=== PATIENT | female | born 1950 | race Caucasian/White ===

== ENCOUNTER → 2017-06-05 | Outpatient (CLI) | payer MEDICARE ==
--- NOTE | 2017-06-06 07:40 | BD ---
EXAMINATION TYPE: MG DEXA axial skeleton. DATE OF EXAM: 06/05/2017 COMPARISON: Prior DEXA bone scan July 13, 2009 CLINICAL HISTORY: Postmenopausal female with known osteoporosis per order Height: 5 FT 1IN Weight: 127 FRAX RISK QUESTIONS: Alcohol (3 or more units per day): NO Family History (Parent hip fracture): NO Glucocorticoids (More than 3mos): NO (Ex: prednisone, prednisolone, methylprednisolone, dexamethasone, and hydrocortisone). History of Fracture in Adulthood: YES Secondary Osteoporosis: 1. Type 1 Diabetes: NO 2. Hyperthyroidism: NO 3. Menopause before 45: NO 4. Malnutrition: NO 5. Chronic liver disease: NO Rheumatoid Arthritis: NO Current Tobacco Use: NO RISK FACTORS HISTORY OF: Family History of Osteoporosis: YES Active: YES Postmenopausal woman: AGE 49 MEDICATIONS: Additional Medications: EFFEXOR, CHOLESTEROL, Additional History: OPEN HEART OCTOBER 2016 EXAM MEASUREMENTS: Bone mineral densitometry was performed using the [employer] System. Bone mineral density as measured about the Lumbar spine is: ----- L1-L4(G/cm2): 1.006 T Score Values are as follows: ----- L2: -2.1 ----- L3: -1.0 ----- L4: -1.5 ----- L1-L4: -1.5 Bone mineral density has: INCREASED 2.4 % since study of: 2009 Bone mineral density about the R hip (g/cm2): 0.729 Bone mineral density about the L hip (g/cm2): 0.634 T Score values are as follows: -----R Neck: -2.2 -----L Neck: -2.9 -----R Total: -1.6 -----L Total: -2.0 Bone mineral density has: DECREASED -4.2 % since study of: 2009 IMPRESSION: Osteoporosis (T Score less than -2.5) as noted by T Score values at the left hip persist. Bone densit y in both hips is decreased or diminished from prior. There is increased fracture risk and therapy is usually indicated based on age. Re-Screen 1-2 years. NOTE: T-SCORE=SD OF THE YOUNG ADULT MEAN.
--- NOTE | 2017-06-06 13:45 | MM ---
Reason for exam: screening (asymptomatic). Last mammogram was performed 1 year ago. History: Patient is postmenopausal and has history of other cancer at age 62. Family history of breast cancer in 2 paternal aunts and breast cancer in sister at age 58. Reductions of both breasts, 1993. Took hormonal contraceptives for 6 months. Took estrogen for 1 year 6 months beginning at age 47. Physical Findings: A clinical breast exam by your physician is recommended on an annual basis and results should be correlated with mammographic findings. MG 3D Screening Mammo W/Cad Bilateral CC and MLO view(s) were taken. Prior study comparison: May 21, 2016, bilateral MG 3d screening mammo w/cad. January 12, 2015, right breast MG work up mamm w CAD RT. The breast tissue is heterogeneously dense. This may lower the sensitivity of mammography. No suspicious abnormality. Post reduction changes. No significant changes when compared with prior studies. ASSESSMENT: Benign, BI-RAD 2 RECOMMENDATION: Routine screening mammogram of both breasts in 1 year.
== END | disposition home or self-care (01) ==
LOC: RADMAMWWP 14:24
PROVIDERS: ATTEND Internal Medicine
DX: Z12.31 Encounter for screening mammogram for malignant neoplasm of breast (principal); M81.0 Age-related osteoporosis without current pathological fracture
CPT/HCPCS: 77080; 77063; G0202

== ENCOUNTER → 2018-07-06 | Outpatient (CLI) | payer MEDICARE ==
--- NOTE | 2018-07-07 14:31 | MM ---
Reason for exam: screening (asymptomatic). Last mammogram was performed 1 year and 1 month ago. History: Patient is postmenopausal and has history of other cancer at age 62. Family history of breast cancer in 2 paternal aunts and breast cancer in sister at age 58. Reductions of both breasts, 1993. Took hormonal contraceptives for 6 months. Took estrogen for 1 year 6 months beginning at age 47. Physical Findings: A clinical breast exam by your physician is recommended on an annual basis and results should be correlated with mammographic findings. MG 3D Screening Mammo W/Cad Bilateral CC and MLO view(s) were taken. Prior study comparison: June 05, 2017, bilateral MG 3d screening mammo w/cad. May 21, 2016, bilateral MG 3d screening mammo w/cad. The breast tissue is heterogeneously dense. This may lower the sensitivity of mammography. There are benign appearing round calcifications bilaterally. Dystrophic calcifications left breast. Asymmetric breast tissue left upper outer quadrant. There is no discrete abnormality. ASSESSMENT: Benign, BI-RAD 2 RECOMMENDATION: Routine screening mammogram of both breasts in 1 year.
== END | disposition home or self-care (01) ==
LOC: RADMAMWWP 07:01
PROVIDERS: ATTEND Internal Medicine
DX: Z12.31 Encounter for screening mammogram for malignant neoplasm of breast (principal)
CPT/HCPCS: 77063; 77067

== ENCOUNTER → 2019-07-13 | Outpatient (CLI) | payer MEDICARE ==
--- NOTE | 2019-07-13 17:21 | BD ---
EXAMINATION TYPE: 12 Bone Density DATE OF EXAM: 07/13/2019 COMPARISON: 06/05/17 CLINICAL HISTORY: 68-year-old female osteoporosis Height: 61 IN Weight: 125 LBS FRAX RISK QUESTIONS: History of Fracture in Adulthood: YES RT FOOT AGE 52 RISK FACTORS HISTORY OF: Family History of Osteoporosis: YES SISTER Active: YES Diet low in dairy products/other sources of calcium: YES Postmenopausal woman: AGE 46 MEDICATIONS: Osteoporosis Medications: YES Which medication: Prolia How Lon 1/2 YEARS Additional Medications: PROLIA, CALCIUM, VIT D, MULTI VIT, EFFEXOR, CHOLESTEROL; PILL Additional History: KIDNEY CANCER AGE 62 EXAM MEASUREMENTS: Bone mineral densitometry was performed using the [employer] System. Bone mineral density as measured about the Lumbar spine is: ----- L1-L4(G/cm2): 1.104 T Score Values are as follows: ----- L2: -0.7 ----- L3: 0.3 ----- L4: -1.1 ----- L1-L4: -0.6 Bone mineral density has: Increased 11.6% since study of: 06/05/2017 Bone mineral density about the R hip (g/cm2): 0.750 Bone mineral density about the L hip (g/cm2): 0.673 T Score values are as follows: -----R Neck: -2.1 -----L Neck: -2.6 -----R Total: -1.5 -----L Total: -1.7 Bone mineral density has: Increased 2.8% since study of: 06/05/2017 IMPRESSION: Osteoporosis (T Score less than -2.5). There is increased fracture risk and therapy is usually indicated based on age. Re-Screen 1-2 years. NOTE: T-SCORE=SD OF THE YOUNG ADULT MEAN.
--- NOTE | 2019-07-14 11:46 | MM ---
Reason for exam: screening (asymptomatic). Last mammogram was performed 1 year ago. History: Patient is postmenopausal and has history of other cancer at age 62. Family history of breast cancer in maternal aunt, breast cancer in paternal aunt, breast cancer in sister at age 58, and breast cancer in daughter. Reductions of both breasts, 1993. Took hormonal contraceptives for 6 months. Took estrogen for 1 year 6 months beginning at age 47. Physical Findings: A clinical breast exam by your physician is recommended on an annual basis and results should be correlated with mammographic findings. MG 3D Screening Mammo W/Cad Bilateral CC and MLO view(s) were taken. XCCL view(s) were taken of the left breast. Prior study comparison: July 06, 2018, bilateral MG 3d screening mammo w/cad. June 05, 2017, bilateral MG 3d screening mammo w/cad. There are scattered fibroglandular densities. Benign appearing bilateral calcifications. No suspicious abnormality. Left upper outer quadrant focal asymmetry is stable back to 2015. No significant changes when compared with prior studies. ASSESSMENT: Benign, BI-RAD 2 RECOMMENDATION: Routine screening mammogram of both breasts in 1 year.
== END | disposition home or self-care (01) ==
LOC: RADMAMWWP 08:26
PROVIDERS: ATTEND Internal Medicine
DX: Z12.31 Encounter for screening mammogram for malignant neoplasm of breast (principal); M81.0 Age-related osteoporosis without current pathological fracture
CPT/HCPCS: 77063; 77067; 77080

== ENCOUNTER → 2019-12-14 | Outpatient (CLI) | payer MEDICARE ==
[2019-12-14 10:20] LABS: Albumin 4.5 g/dL (3.5-5.0); Calcium 9.7 mg/dL (8.4-10.2); Potassium 4.6 mmol/L (3.5-5.1); Total Bilirubin 0.5 mg/dL (0.2-1.3); Total Protein 7.2 g/dL (6.3-8.2)
[2019-12-14 10:29] LABS: Basophils % (A) 1 %; Eosinophils # (A) 0.3 k/uL (0-0.7); Eosinophils % (A) 4 %; HCT 42.7 % (34.0-46.0); HGB 14.3 gm/dL (11.4-16.0); Lymphocytes # (A) 1.5 k/uL (1.0-4.8); Lymphocytes % (A) 25 %; MCH 33.6 pg (25.0-35.0); MCHC 33.6 g/dL (31.0-37.0); MCV 100.1 fL (80.0-100.0); Monocytes # (A) 0.5 k/uL (0-1.0); Monocytes % (A) 8 %; Neutrophils # (A) 3.9 k/uL (1.3-7.7); Neutrophils % (A) 61 %; Platelet Count 311 k/uL (150-450); RBC 4.26 m/uL (3.80-5.40); RDW 12.3 % (11.5-15.5); WBC 6.3 k/uL (3.8-10.6)
--- NOTE | 2019-12-14 11:34 | XR ---
EXAMINATION TYPE: XR abdomen 1V DATE OF EXAM: 12/14/2019 Comparison: None Clinical History: 69-year-old female R10.84 Generalized Abdominal Pain Findings: Cholecystectomy clips. Additional surgical clips along the right paramedian mid abdomen. Pelvic phleb oliths. Moderate stool burden. Nonobstructive bowel gas pattern. Supine imaging limited for assessmen t of free air. Impression: Moderate stool burden. Nonobstructive bowel gas pattern. Surgical clips on the right.
== END | disposition home or self-care (01) ==
LOC: RADXRMAIN 08:32
PROVIDERS: ATTEND Internal Medicine
DX: R19.5 Other fecal abnormalities (principal); Z90.49 Acquired absence of other specified parts of digestive tract; K21.0 Gastro-esophageal reflux disease with esophagitis; E78.2 Mixed hyperlipidemia
CPT/HCPCS: 36415; 74018; 80053; 80061; 84443; 85025

== ENCOUNTER → 2020-09-22 | Outpatient (CLI) | payer MEDICARE ==
--- NOTE | 2020-09-26 07:28 | MM ---
Reason for exam: screening (asymptomatic). Last mammogram was performed 1 year and 2 months ago. History: Patient is postmenopausal and has history of other cancer at age 62. Family history of breast cancer in maternal aunt, breast cancer in paternal aunt, breast cancer in sister at age 58, and breast cancer in daughter at age 42. Reductions of both breasts, 1993. Took hormonal contraceptives for 6 months. Took estrogen for 1 year 6 months beginning at age 47. Physical Findings: A clinical breast exam by your physician is recommended on an annual basis and results should be correlated with mammographic findings. MG 3D Screening Mammo W/Cad Bilateral CC and MLO view(s) were taken. XCCL view(s) were taken of the right breast. Prior study comparison: July 13, 2019, bilateral MG 3d screening mammo w/cad. July 06, 2018, bilateral MG 3d screening mammo w/cad. There are scattered fibroglandular densities. Global asymmetry left upper outer quadrant is unchanged. Stable course grouped calcifications posterior left breast. No significant changes when compared with prior studies. ASSESSMENT: Benign, BI-RAD 2 RECOMMENDATION: Routine screening mammogram of both breasts in 1 year.
== END | disposition home or self-care (01) ==
LOC: RADMAMWWP 15:41
PROVIDERS: ATTEND Internal Medicine
DX: Z12.31 Encounter for screening mammogram for malignant neoplasm of breast (principal); Z80.3 Family history of malignant neoplasm of breast; Z78.0 Asymptomatic menopausal state
CPT/HCPCS: 77063; 77067

== ENCOUNTER → 2021-10-15 | Outpatient (CLI) | payer MEDICARE ==
--- NOTE | 2021-10-16 11:47 | MM ---
Reason for exam: screening (asymptomatic). Last mammogram was performed 1 year and 1 month ago. History: Patient is postmenopausal and has history of other cancer at age 62. Family history of breast cancer in maternal aunt, breast cancer in paternal aunt, breast cancer in sister at age 58, and breast cancer in daughter at age 42. Reductions of both breasts, 1993. Took hormonal contraceptives for 6 months. Took estrogen for 1 year 6 months beginning at age 47. Physical Findings: A clinical breast exam by your physician is recommended on an annual basis and results should be correlated with mammographic findings. MG 3D Screening Mammo W/Cad Bilateral CC and MLO view(s) were taken. Prior study comparison: September 22, 2020, bilateral MG 3d screening mammo w/cad. July 13, 2019, bilateral MG 3d screening mammo w/cad. The breast tissue is heterogeneously dense. This may lower the sensitivity of mammography. Finding #1: There is a stable 15 mm mass in the upper outer quadrant of the left breast. Finding #2: There are typically benign calcifications in both breasts. There is a chronic nodularity in the left breast. Asymmetric breast tissue. ASSESSMENT: Benign, BI-RAD 2 RECOMMENDATION: Routine screening mammogram of both breasts in 1 year.
== END | disposition home or self-care (01) ==
LOC: RADMAMWWP 07:43
PROVIDERS: ATTEND Internal Medicine
DX: Z12.31 Encounter for screening mammogram for malignant neoplasm of breast (principal); Z78.0 Asymptomatic menopausal state; Z80.3 Family history of malignant neoplasm of breast
CPT/HCPCS: 77063; 77067

== ENCOUNTER → 2022-11-07 | Outpatient (CLI) | payer MEDICARE ==
--- NOTE | 2022-11-07 11:47 | BD ---
EXAMINATION TYPE: Axial Bone Density DATE OF EXAM: 11/07/2022 CLINICAL HISTORY: 72 years old Female. ICD-10 CODE: Z12.31 SCREENING MAMMO Height: 61 Weight: 130 FRAX RISK QUESTIONS: Family History (Parent hip fracture): no parent, but her sister History of Fracture in Adulthood: yes RISK FACTORS HISTORY OF: hx of lt foot fx as an adult Family History of Osteoporosis: yes, her sister Active: yes Diet low in dairy products/other sources of calcium: yes Postmenopausal woman: yes, at age 46 Hyperparathyroidism: no Adrenal Insufficiency: no MEDICATIONS: Osteoporosis Medications: yes, Prolia for about 5 yrs Additional Medications: calcium, vit d, effexor, statin for cholesterol, Additional History: kidney ca at age 62, EXAM MEASUREMENTS: Bone mineral densitometry was performed using the [employer] System. Bone mineral density as measured about the Lumbar spine is: ----- L1-L4(G/cm2): 1.128 T Score Values are as follows: ----- L1: -0.1 ----- L2: -0.4 ----- L3: 0.3 ----- L4: -0.1 ----- L1-L4: -0.4 Z Score Values are as follows: ----- L1: 0.9 ----- L2: 1.5 ----- L3: 2.2 ----- L4: 0.9 ----- L1-L4: 1.5 Bone mineral density has: Increased 2.2% since study of: 07.13.2019 Bone mineral density about the R hip (g/cm2): 0.819 Bone mineral density about the L hip (g/cm2): 0.815 T Score values are as follows: -----R Neck: -1.6 -----L Neck: -2.5 -----R Total: -1.5 -----L Total: -1.5 Z Score values are as follows: -----R Neck: 0.3 -----L Neck: -0.6 -----R Total: 0.2 -----L Total: 0.2 Bone mineral density has: Increased 1.9% since study of: 02.04.2020 FRAX%s: The graph provided illustrates a 24.3% chance for a major osteoporotic fx and a 6.8% chance f or the hips probability for fx in 10 years time. IMPRESSION: Osteopenia (T Score between -2.5 and -1). There is slightly increased risk of fracture and the patient may be considered for treatment. Re-Screen 2-5 years. NOTE: T-SCORE=SD OF THE YOUNG ADULT MEAN.
== END | disposition home or self-care (01) ==
LOC: RADBDWWP 07:53
PROVIDERS: ATTEND Internal Medicine
DX: M81.0 Age-related osteoporosis without current pathological fracture (principal); M85.89 Other specified disorders of bone density and structure, multiple sites; Z78.0 Asymptomatic menopausal state
CPT/HCPCS: 77080

== ENCOUNTER → 2022-11-15 | Outpatient (CLI) | payer MEDICARE ==
--- NOTE | 2022-11-18 08:29 | MM ---
Reason for Exam: Screening (asymptomatic). Last mammogram was performed 1 year(s) and 1 month(s) ago. Patient History: Menarche at age 13. First Full-Term at age 19. Left ovary removed at age 47. Right ovary removed at age 47. Postmenopausal. Other cancer, age 62. Estrogen for 1 year, 6 months, from age 47 until age 49. Hormonal Contraceptives for 6 months. 1993, Bilateral Reduction. Paternal aunt had breast cancer. Maternal aunt had breast cancer. Sister had breast cancer, age 58. Daughter had breast cancer, age 42. Mother had ovarian cancer. Risk Values: Shell 5 year model risk: 8.3%. NCI Lifetime model risk: 20.2%. Prior Study Comparison: 07/13/2019 Bilateral Screening Mammogram, [facility]. 09/22/2020 Bilateral Screening Mammogram, [facility]. 10/15/2021 Bilateral Screening Mammogram, [facility]. Tissue Density: The breast tissue is heterogeneously dense. This may lower the sensitivity of mammography. Findings: Analyzed By CAD. There is no suspicious group of microcalcifications or new suspicious mass in either breast. Overall Assessment: Benign, BI-RAD 2 Management: Screening Mammogram of both breasts in 1 year. . Patient should continue monthly self-breast exams. A clinical breast exam by your physician is recommended on an annual basis. This exam should not preclude additional follow-up of suspicious palpable abnormalities. Note on Shell scores and lifetime risk: 1. A Shell score greater than 3% is considered moderate risk. If this is the case, consider specialist referral to assess eligibility for a risk reducing agent. 2. If overall lifetime risk for the development of breast cancer is 20% or higher, the patient may qualify for future screening with alternating mammogram and breast MRI. Electronically signed and approved by: Abhinav Samayoa M.D. Radiologis
== END | disposition home or self-care (01) ==
LOC: RADMAMWWP 07:14
PROVIDERS: ATTEND Internal Medicine
DX: Z12.31 Encounter for screening mammogram for malignant neoplasm of breast (principal); Z78.0 Asymptomatic menopausal state; Z80.3 Family history of malignant neoplasm of breast; Z80.41 Family history of malignant neoplasm of ovary
CPT/HCPCS: 77063; 77067

== ENCOUNTER 2023-01-22 13:46 | Emergency (ER) | payer MEDICARE ==
[2023-01-22 14:04] VITALS: TEMP 99
[2023-01-22] MEDS ORDERED: SODIUM CHLORIDE 0.9% 1,000 ML IV STA (14:10)
--- NOTE | 2023-01-22 14:15 | ED ---
Syncope HPI - General Chief Complaint: Syncope Stated Complaint: Syncope Time Seen by Provider: 01/22/23 14:07 Source: patient, RN notes reviewed, old records reviewed Mode of arrival: wheelchair Limitations: no limitations - History of Present Illness Initial Comments: This is a 72-year-old female to the emergency department for evaluation today. Has passed out last 2 days with fever of 102. Patient feels lightheaded dizzy and weak at times. The persistent shortness of breath. Occasional headaches and this feels like she currently has a fever and chills. Patient is also complaining of weakness. MD Complaint: loss of consciousness, felt faint, collapsed -: days(s) Prodromal Symptoms: lightheaded, palpitations -: second(s) Witnessed: no Injuries Sustained Associated with Event: None Current Symptoms: lightheaded, weakness History: previous syncopal episode, other (Recent fever) Context: at rest - Related Data Home Medications Medication Instructions Recorded Confirmed Albuterol Inhaler [Ventolin Hfa 1 - 2 puff INHALATION RT-Q6H PRN 01/22/23 01/22/23 Inhaler] Ascorbic Acid [Vitamin C] 1,000 mg PO DAILY 01/22/23 01/22/23 Atorvastatin [Lipitor] 40 mg PO HS 01/22/23 01/22/23 Cholecalciferol [Vitamin D3 (25 50 mcg PO DAILY 01/22/23 01/22/23 Mcg = 1000 Iu)] Famotidine 40 mg PO HS 01/22/23 01/22/23 Gabapentin [Neurontin] 300 mg PO TID PRN 01/22/23 01/22/23 Multivitamins, Thera [Multivitamin 1 tab PO DAILY 01/22/23 01/22/23 (formulary)] Omeprazole 40 mg PO AC-BRKFST 01/22/23 01/22/23 Vitamin E (Dl,Tocopheryl Acet) 400 unit PO DAILY 01/22/23 01/22/23 [Vitamin E (400 Iu = 180 mg)] Allergies Allergy/AdvReac Type Severity Reaction Status Date / Time ceftriaxone [From Rocephin] Allergy Rash/Hives Verified 01/22/23 16:53 Penicillins Allergy Rash/Hives Verified 01/22/23 16:53 Review of Systems ROS Statement: Those systems with pertinent positive or pertinent negative responses have been documented in the HPI. ROS Other: All systems not noted in ROS Statement are negative. Past Medical History Past Medical History: Cancer Additional Past Medical History / Comment(s): kidney cancer History of Any Multi-Drug Resistant Organisms: None Reported Additional Past Surgical History / Comment(s): rt kidney removal Past Psychological History: Anxiety, Depression Smoking Status: Never smoker Past Alcohol Use History: None Reported Past Drug Use History: None Reported General Exam Limitations: no limitations General appearance: alert, in no apparent distress Head exam: Present: atraumatic, normocephalic, normal inspection Eye exam: Present: normal appearance, PERRL, EOMI. Absent: scleral icterus, conjunctival injection, periorbital swelling ENT exam: Present: normal exam, mucous membranes moist Neck exam: Present: normal inspection. Absent: tenderness, meningismus, lymphadenopathy Respiratory exam: Present: normal lung sounds bilaterally. Absent: respiratory distress, wheezes, rales, rhonchi, stridor Cardiovascular Exam: Present: regular rate, normal rhythm, normal heart sounds. Absent: systolic murmur, diastolic murmur, rubs, gallop, clicks GI/Abdominal exam: Present: soft, normal bowel sounds. Absent: distended, tenderness, guarding, rebound, rigid Extremities exam: Present: normal inspection, full ROM, normal capillary refill. Absent: tenderness, pedal edema, joint swelling, calf tenderness Back exam: Present: normal inspection Neurological exam: Present: alert, oriented X3, CN II-XII intact Psychiatric exam: Present: normal affect, normal mood Skin exam: Present: warm, dry, intact, normal color. Absent: rash Course Vital Signs 01/22/23 01/22/23 13:58 16:18 Temperature 99.0 F Pulse Rate 80 90 Respiratory 20 18 Rate Blood Pressure 127/80 161/90 O2 Sat by Pulse 99 95 Oximetry - Reevaluation(s) Reevaluation #1: 01/22/23 15:40 Medical record is reviewed Reevaluation #2: 01/22/23 15:40 No recurrent syncope here in the ER Reevaluation #3: Patient informed of results, currently feels well and can be discharged home Reevaluation #4: 01/22/23 14:12 Was pt. sent in by a medical professional or institution (, PA, CROWN ATTACHER, urgent care, hospital, or group home...) When possible be specific @ -no Did you speak to anyone other than the patient for history (EMS, parent, family, police, friend...)? What history was obtained from this source @ -no Did you review nursing and triage notes (agree or disagree)? Why? @ -agree Are old charts reviewed (outside hosp., previous admission, EMS record, old EKG, old radiological studies, urgent care reports/EKG's, group home records)? Report findings @ -yes Differential Diagnosis (chest pain, altered mental status, abdominal pain women, abdominal pain men, vaginal bleeding, weakness, fever, dyspnea, syncope, headache, dizziness, GI bleed, back pain, seizure, CVA, palpatations, mental health, musculoskeletal)? @ -prior EKG interpreted by me (3pts min.). @ -yes X-rays interpreted by me (1pt min.). @ -yes CT interpreted by me (1pt min.). @ -yes U/S interpreted by me (1pt. min.). @ -no What testing was considered but not performed or refused? (CT, X-rays, U/S, labs)? Why? @ -none What meds were considered but not given or refused? Why? @ -none Did you discuss the management of the patient with other professionals (professionals i.e. , PA, CROWN ATTACHER, lab, RT, psych nurse, social media designer, private detective, teacher, sheriff's officer, pillowcase cleaner)? Give summary @ -no Was smoking cessation discussed for >3mins.? @ -no Was critical care preformed (if so, how long)? @ -no Were there social determinants of health that impacted care today? How? (Homelessness, low income, unemployed, alcoholism, drug addiction, transportation, low edu. Level, literacy, decrease access to med. care, fci, rehab)? @ -none Was there de-escalation of care discussed even if they declined (Discuss DNR or withdrawal of care, Hospice)? DNR status @ -no What co-morbidities impacted this encounter? (DM, HTN, Smoking, COPD, CAD, Cancer, CVA, ARF, Chemo, Hep., AIDS, mental health diagnosis, sleep apnea, morbid obesity)? @ -none Was patient admitted / discharged? Hospital course, mention meds given and route, prescriptions, significant lab abnormalities, going to OR and other pertinent info. @ - 72 female presenting with a syncopal event as well as persistent fever for the last few days has not felt well with nausea vomiting diarrhea and weakness. Patient has no recurrent syncopal episodes here in the ER fevers controlled and also feels well no cause of fevers found, spoke patient's primary care feels comfortable with discharge and patient will follow-up in the office Discharge Undiagnosed new problem with uncertain prognosis? @ -no Drug Therapy requiring intensive monitoring for toxicity (Heparin, Nitro, Insulin, Cardizem)? @ -no Were any procedures done? @ -no Diagnosis/symptom? @ -Syncope, fever, nausea vomiting diarrhea Acute, or Chronic, or Acute on Chronic? @ -Acute Uncomplicated (without systemic symptoms) or Complicated (systemic symptoms)? @ -Complicated Side effects of treatment? @ -no Exacerbation, Progression, or Severe Exacerbation? @ -exacerbation Poses a threat to life or bodily function? How? (Chest pain, [place], [place], pneumonia, PE, COPD, DKA, ARF, appy, cholecystitis, CVA, Diverticulitis, Homicidal, Suicidal, threat to staff... and all critical care pts) @ -yes cause of syncope can be due to mortality causing disease Reevaluation #5: 01/22/23 14:12 Differential Syncope: Valvular disease, hypertrophic cardiomyopathy, pulmonary embolism, tamponade, tachycardia, bradycardia, [place], hypovolemia, hemorrhage, dissection, anemia, intracranial hemorrhage, seizure, hypoglycemia, carbon monoxide poisoning, this is not meant to be an all-inclusive list. - Consultations Consultation #1: Spoke with patient's primary care Dr. Jacobsen who agrees to see patient in the office feels good for patient discharge EKG Findings - EKG Comments: EKG Findings:: EKG is sinus 83 IA 151 QRS 86 QTc 417, occasional PVC - EKG Results: EKG: interpreted by [facility] Medical Decision Making - Medical Decision Making 72 female presenting with a syncopal event as well as persistent fever for the last few days has not felt well with nausea vomiting diarrhea and weakness. Patient has no recurrent syncopal episodes here in the ER fevers controlled and also feels well no cause of fevers found, spoke patient's primary care feels comfortable with discharge and patient will follow-up in the office - Lab Data Result diagrams: 01/22/23 14:34 01/22/23 14:34 Lab Results 01/22/23 01/22/23 01/22/23 Range/Units 14:34 14:34 14:34 WBC 10.2 (3.8-10.6) k/uL RBC 4.03 (3.80-5.40) m/uL Hgb 13.0 (11.4-16.0) gm/dL Hct 38.3 (34.0-46.0) % MCV 95.1 (80.0-100.0) fL MCH 32.3 (25.0-35.0) pg MCHC 34.0 (31.0-37.0) g/dL RDW 12.8 (11.5-15.5) % Plt Count 215 (150-450) k/uL MPV 7.1 Neutrophils % 85 % Lymphocytes % 7 % Monocytes % 8 % Eosinophils % 0 % Basophils % 0 % Neutrophils # 8.6 H (1.3-7.7) k/uL Lymphocytes # 0.7 L (1.0-4.8) k/uL Monocytes # 0.8 (0-1.0) k/uL Eosinophils # 0.0 (0-0.7) k/uL Basophils # 0.0 (0-0.2) k/uL PT 9.8 (9.0-12.0) sec INR 0.9 (<1.2) APTT 23.3 (22.0-30.0) sec D-Dimer 1.17 H (<0.60) mg/L FEU Sodium 134 L (137-145) mmol/L Potassium 3.9 (3.5-5.1) mmol/L Chloride 101 (98-107) mmol/L Carbon Dioxide 27 (22-30) mmol/L Anion Gap 6 mmol/L BUN 14 (7-17) mg/dL Creatinine 0.99 (0.52-1.04) mg/dL Est GFR (CKD-EPI)AfAm 66 (>60 ml/min/1.73 sqM) Est GFR (CKD-EPI)NonAf 57 (>60 ml/min/1.73 sqM) Glucose 144 H (74-99) mg/dL Calcium 9.7 (8.4-10.2) mg/dL Magnesium 2.0 (1.6-2.3) mg/dL Total Bilirubin 0.9 (0.2-1.3) mg/dL AST 30 (14-36) U/L ALT 19 (4-34) U/L Alkaline Phosphatase 60 (38-126) U/L Troponin I (0.000-0.034) ng/mL Total Protein 6.9 (6.3-8.2) g/dL Albumin 4.2 (3.5-5.0) g/dL Urine Color Urine Appearance (Clear) Urine pH (5.0-8.0) Ur Specific [place] (1.001-1.035) Urine Protein (Negative) Urine Glucose (UA) (Negative) Urine Ketones (Negative) Urine Blood (Negative) Urine Nitrite (Negative) Urine Bilirubin (Negative) Urine Urobilinogen (<2.0) mg/dL Ur Leukocyte Esterase (Negative) Urine RBC (0-5) /hpf Urine WBC (0-5) /hpf Urine Bacteria (None) /hpf Influenza Type A (PCR) (Not Detectd) Influenza Type B (PCR) (Not Detectd) RSV (PCR) (Not Detectd) SARS-CoV-2 (PCR) (Not Detectd) 01/22/23 01/22/23 01/22/23 Range/Units 14:34 14:48 15:12 WBC (3.8-10.6) k/uL RBC (3.80-5.40) m/uL Hgb (11.4-16.0) gm/dL Hct (34.0-46.0) % MCV (80.0-100.0) fL MCH (25.0-35.0) pg MCHC (31.0-37.0) g/dL RDW (11.5-15.5) % Plt Count (150-450) k/uL MPV Neutrophils % % Lymphocytes % % Monocytes % % Eosinophils % % Basophils % % Neutrophils # (1.3-7.7) k/uL Lymphocytes # (1.0-4.8) k/uL Monocytes # (0-1.0) k/uL Eosinophils # (0-0.7) k/uL Basophils # (0-0.2) k/uL PT (9.0-12.0) sec INR (<1.2) APTT (22.0-30.0) sec D-Dimer (<0.60) mg/L FEU Sodium (137-145) mmol/L Potassium (3.5-5.1) mmol/L Chloride (98-107) mmol/L Carbon Dioxide (22-30) mmol/L Anion Gap mmol/L BUN (7-17) mg/dL Creatinine (0.52-1.04) mg/dL Est GFR (CKD-EPI)AfAm (>60 ml/min/1.73 sqM) Est GFR (CKD-EPI)NonAf (>60 ml/min/1.73 sqM) Glucose (74-99) mg/dL Calcium (8.4-10.2) mg/dL Magnesium (1.6-2.3) mg/dL Total Bilirubin (0.2-1.3) mg/dL AST (14-36) U/L ALT (4-34) U/L Alkaline Phosphatase (38-126) U/L Troponin I 0.016 (0.000-0.034) ng/mL Total Protein (6.3-8.2) g/dL Albumin (3.5-5.0) g/dL Urine Color Light Yellow Urine Appearance Clear (Clear) Urine pH 6.0 (5.0-8.0) Ur Specific [place] 1.003 (1.001-1.035) Urine Protein Negative (Negative) Urine Glucose (UA) Negative (Negative) Urine Ketones Trace H (Negative) Urine Blood Negative (Negative) Urine Nitrite Negative (Negative) Urine Bilirubin Negative (Negative) Urine Urobilinogen <2.0 (<2.0) mg/dL Ur Leukocyte Esterase Moderate H (Negative) Urine RBC 2 (0-5) /hpf Urine WBC 8 H (0-5) /hpf Urine Bacteria Rare H (None) /hpf Influenza Type A (PCR) Not Detected (Not Detectd) Influenza Type B (PCR) Not Detected (Not Detectd) RSV (PCR) Not Detected (Not Detectd) SARS-CoV-2 (PCR) Not Detected (Not Detectd) - EKG Data -: EKG Interpreted by Me - Radiology Data Radiology results: report reviewed (Chest x-ray and CT chest are negative for acute disease), image reviewed Disposition Clinical Impression: Syncope, Dehydration, Fever, Nausea & vomiting Disposition: HOME SELF-CARE Condition: Fair Instructions (If sedation given, give patient instructions): Syncope (ED) Is patient prescribed a controlled substance at d/c from ED?: No Referrals: Cayden Jacobsen MD [Primary Care Provider] - 1-2 days Time of Disposition: 17:00
[2023-01-22] MEDS ORDERED: IBUPROFEN 600 MG TAB PO STA (14:46)
[2023-01-22] MEDS ORDERED: ACETAMINOPHEN TAB 500 MG TAB PO STA (14:46)
[2023-01-22 15:04] LABS: Basophils % (A) 0 %; Eosinophils % (A) 0 %; HCT 38.3 % (34.0-46.0); Lymphocytes # (A) 0.7 k/uL (1.0-4.8); Lymphocytes % (A) 7 %; MCH 32.3 pg (25.0-35.0); MCV 95.1 fL (80.0-100.0); Mean Platelet Volume 7.1; Monocytes # (A) 0.8 k/uL (0-1.0); Monocytes % (A) 8 %; Neutrophils # (A) 8.6 k/uL (1.3-7.7); Neutrophils % (A) 85 %; Platelet Count 215 k/uL (150-450); RBC 4.03 m/uL (3.80-5.40); RDW 12.8 % (11.5-15.5); WBC 10.2 k/uL (3.8-10.6)
--- NOTE | 2023-01-22 15:06 | XR ---
EXAMINATION TYPE: XR chest 1V portable DATE OF EXAM: 01/22/2023 HISTORY: Shortness of breath. COMPARISON: 11-19 TECHNIQUE: Single view of the chest is submitted. FINDINGS: Demonstrated are scattered senescent parenchymal change. There is no evidence for focal infiltrate. The heart is stable. Hilar and mediastinal structures are within normal limits. Degenerative changes are seen of the dorsal spine. IMPRESSION: 1. Chronic changes without evidence for acute pulmonary disease.
[2023-01-22 15:16] LABS: INR 0.9 (<1.2); Partial Thromboplastin Time 23.3 sec (22.0-30.0); Prothrombin Time 9.8 sec (9.0-12.0)
[2023-01-22 15:21] LABS: ALT 19 U/L (4-34); AST 30 U/L (14-36); African American GFR (CKD) 66 (>60 ml/min/1.73 sqM); Albumin 4.2 g/dL (3.5-5.0); Alkaline Phosphatase 60 U/L (38-126); Anion Gap 6 mmol/L; Blood Urea Nitrogen 14 mg/dL (7-17); Calcium 9.7 mg/dL (8.4-10.2); Carbon Dioxide 27 mmol/L (22-30); Chloride 101 mmol/L (98-107); Glucose 144 mg/dL (74-99); Non-African American GFR(CKD) 57 (>60 ml/min/1.73 sqM); Potassium 3.9 mmol/L (3.5-5.1); Sodium 134 mmol/L (137-145); Total Bilirubin 0.9 mg/dL (0.2-1.3); Total Protein 6.9 g/dL (6.3-8.2)
[2023-01-22 15:52] LABS: Appearance,Urine Clear (Clear); Bacteria,Urine Rare /hpf; Bilirubin,Urine Negative (Negative); Blood,Urine Negative (Negative); Color,Urine Light Yellow; Glucose,Urine (UA) Negative (Negative); Ketones,Urine Trace (Negative); Leukocyte Esterase,Urine Moderate (Negative); Nitrite,Urine Negative (Negative); Protein,Urine Negative (Negative); RBC,Urine 2 /hpf (0-5); Specific Gravity,Urine 1.003 (1.001-1.035); Urobilinogen,Urine <2.0 mg/dL (<2.0); WBC,Urine 8 /hpf (0-5)
--- NOTE | 2023-01-22 16:18 | CT ---
EXAMINATION TYPE: CT angio chest DATE OF EXAM: 01/22/2023 COMPARISON: 12/14/2013 HISTORY: Syncope CT DLP: 229.7 mGycm CONTRAST: CT chest with contrast and 3D reconstruction with MIP imaging is performed with IV Contrast, patient injected with 80 mL of Isovue 370. Contrast-enhanced CT of the chest was performed through the course of the pulmonary arteries with nain g and mediastinal window settings submitted. 3D reconstruction with MIP imaging was also performed. PULMONARY ARTERIES: The pulmonary arteries and their major tributaries are patent. I do not see everett dence for sizable filling defect to suggest pulmonary embolic process. LUNGS: The lungs are clear and free of infiltrate. No evidence for atelectasis. No pulmonary nodule or mass is detected. No pleural effusion. MEDIASTINUM: Thoracic aorta is of normal caliber.. Small sliding-type hiatal hernia. The heart is no t enlarged. No evidence for mediastinal mass. No mediastinal lymph nodes greater than 1cm. HILAR STRUCTURES: No evidence for mass. No hilar lymph nodes greater than 1 cm. UPPER ABDOMEN: No significant abnormality is seen. IMPRESSION: 1. No evidence for Pulmonary embolism at this time.
[2023-01-22 16:19] VITALS: BP 161/90; PULSE 90; RESP 18
== END 2023-01-22 17:05 | disposition home or self-care (01) ==
LOC: EC 13:46
DX: R55 Syncope and collapse (principal); E86.0 Dehydration; R50.9 Fever, unspecified; R11.2 Nausea with vomiting, unspecified; F41.9 Anxiety disorder, unspecified; F32.A Depression, unspecified; Z88.0 Allergy status to penicillin; Z88.1 Allergy status to other antibiotic agents; Z79.899 Other long term (current) drug therapy; Z20.822 Contact with and (suspected) exposure to COVID-19
CPT/HCPCS: 36415; 93005; 85379; 80053; 83735; 84484; 85025; 85610; 85730; 81001; 87636; 71045; 71275; 99285; 96360; Q9967

== ENCOUNTER 2023-03-18 17:58 | Inpatient (IN) | payer MEDICARE ==
--- NOTE | 2023-03-18 18:41 | ED ---
General Adult HPI - General Chief complaint: Fall Stated complaint: fall Time Seen by Provider: 03/18/23 18:09 Source: patient, EMS, RN notes reviewed Mode of arrival: EMS Limitations: no limitations - History of Present Illness Initial comments: Patient is a pleasant 72-year-old female presenting to the emergency department with concerns with fall. Incident occurred prior to arrival. Patient was walking in her bathroom. Patient states she was carrying too many) warned her not to. Patient believes this made her fall. Patient did fall back towards the shower. Patient believes she did lightly bump her head. No loss of consciousness. Patient denies syncope. No chest pain or back pain. No abdominal pain. No dyspnea. No significant headache. Patient is symptom-free at this time. - Related Data Home Medications Medication Instructions Recorded Confirmed Albuterol Inhaler [Ventolin Hfa 1 - 2 puff INHALATION RT-Q6H PRN 01/22/23 01/22/23 Inhaler] Ascorbic Acid [Vitamin C] 1,000 mg PO DAILY 01/22/23 01/22/23 Atorvastatin [Lipitor] 40 mg PO HS 01/22/23 01/22/23 Cholecalciferol [Vitamin D3 (25 50 mcg PO DAILY 01/22/23 01/22/23 Mcg = 1000 Iu)] Famotidine 40 mg PO HS 01/22/23 01/22/23 Gabapentin [Neurontin] 300 mg PO TID PRN 01/22/23 01/22/23 Multivitamins, Thera [Multivitamin 1 tab PO DAILY 01/22/23 01/22/23 (formulary)] Omeprazole 40 mg PO AC-BRKFST 01/22/23 01/22/23 Vitamin E (Dl,Tocopheryl Acet) 400 unit PO DAILY 01/22/23 01/22/23 [Vitamin E (400 Iu = 180 mg)] Allergies Allergy/AdvReac Type Severity Reaction Status Date / Time ceftriaxone [From Rocephin] Allergy Rash/Hives Verified 03/18/23 18:12 Penicillins Allergy Rash/Hives Verified 03/18/23 18:12 Review of Systems ROS Statement: Those systems with pertinent positive or pertinent negative responses have been documented in the HPI. ROS Other: All systems not noted in ROS Statement are negative. Constitutional: Denies: fever Eyes: Denies: eye pain ENT: Denies: ear pain Respiratory: Denies: cough, dyspnea Cardiovascular: Denies: chest pain Endocrine: Denies: fatigue Gastrointestinal: Denies: abdominal pain Musculoskeletal: Denies: back pain Neurological: Denies: headache, weakness, confusion Past Medical History Past Medical History: Cancer Additional Past Medical History / Comment(s): kidney cancer History of Any Multi-Drug Resistant Organisms: None Reported Additional Past Surgical History / Comment(s): rt kidney removal Past Psychological History: Anxiety, Depression Smoking Status: Never smoker Past Alcohol Use History: None Reported Past Drug Use History: None Reported General Exam Limitations: no limitations General appearance: alert, in no apparent distress Head exam: Present: atraumatic, normocephalic Eye exam: Present: normal appearance, PERRL, EOMI ENT exam: Present: normal oropharynx Neck exam: Present: normal inspection, tenderness (Mild diffuse tenderness) Respiratory exam: Present: normal lung sounds bilaterally Cardiovascular Exam: Present: regular rate, normal rhythm GI/Abdominal exam: Present: soft. Absent: tenderness Extremities exam: Present: normal inspection, full ROM. Absent: tenderness Neurological exam: Present: alert, oriented X3, CN II-XII intact. Absent: motor sensory deficit Expanded Neurological exam: Present: protecting the airway Patient oriented to: Present: person, place, time Speech: Present: fluid speech Motor strength exam: RUE: 5, LUE: 5, RLE: 5, LLE: 5 Eye Response: (4) open spontaneously Motor Response: (6) obeys commands Verbal Response: (5) oriented Psychiatric exam: Present: normal affect, normal mood Skin exam: Present: normal color Course Vital Signs 03/18/23 03/18/23 03/18/23 18:02 18:31 19:31 Temperature 98.2 F Pulse Rate 104 H 97 Pulse Rate [ 105 H Supervisor Color Paste Mixing ] Respiratory 18 18 18 Rate Blood Pressure 110/60 115/69 O2 Sat by Pulse 99 96 Oximetry 03/18/23 03/18/23 20:40 21:12 Temperature Pulse Rate 93 Pulse Rate [ Supervisor Color Paste Mixing ] Respiratory 18 18 Rate Blood Pressure 118/69 O2 Sat by Pulse 94 L Oximetry EKG Findings - EKG Results: EKG: interpreted by ERMD (Nonspecific ST-T), sinus rhythm, normal axis, normal QRS Medical Decision Making - Medical Decision Making Was pt. sent in by a medical professional or institution (ADRIENNE Finch, PEDIATRIC GENETICIST, urgent care, hospital, or intermediate...) When possible be specific @ -No Did you speak to anyone other than the patient for history (EMS, parent, family, police, friend...)? What history was obtained from this source @ -No Did you review nursing and triage notes (agree or disagree)? Why? @ -I reviewed and agree with nursing and triage notes Were old charts reviewed (outside hosp., previous admission, EMS record, old EKG, old radiological studies, urgent care reports/EKG's, intermediate records)? Report findings @ -No old charts were reviewed Differential Diagnosis (chest pain, altered mental status, abdominal pain women, abdominal pain men, vaginal bleeding, weakness, fever, dyspnea, syncope, headache, dizziness, GI bleed, back pain, seizure, CVA, palpatations, mental health, musculoskeletal)? @ -Differential Weakness: Hypoglycemia, shock, sepsis, hyponatremia, anemia, infection, [place], ETOH, adverse medicine reaction, overdose, stroke, this is not meant to be an all-inclusive list. EKG interpreted by me (3pts min.). @ -As above X-rays interpreted by me (1pt min.). @ -Chest x-ray shows no acute process CT interpreted by me (1pt min.). @ -Reports reviewed U/S interpreted by me (1pt. min.). @ -None done What testing was considered but not performed or refused? (CT, X-rays, U/S, labs)? Why? @ -None What meds were considered but not given or refused? Why? @ -None Did you discuss the management of the patient with other professionals (professionals i.e. ADRIENNE Finch, PEDIATRIC GENETICIST, lab, RT, psych nurse, social group worker, regional education manager, teacher, security officers and guards, onsite case manager)? Give summary @ -Case was discussed with Dr. Jacobsen who will admit his patient. Was smoking cessation discussed for >3mins.? @ -No Was critical care preformed (if so, how long)? @ -No Were there social determinants of health that impacted care today? How? (Homelessness, low income, unemployed, alcoholism, drug addiction, t ransportation, low edu. Level, literacy, decrease access to med. care, usp, rehab)? @ -No Was there de-escalation of care discussed even if they declined (Discuss DNR or withdrawal of care, Hospice)? DNR status @ -No What co-morbidities impacted this encounter? (DM, HTN, Smoking, COPD, CAD, Cancer, CVA, ARF, Chemo, Hep., AIDS, mental health diagnosis, sleep apnea, morbid obesity)? @ -None Was patient admitted / discharged? Hospital course, mention meds given and route, prescriptions, significant lab abnormalities, going to OR and other pertinent info. @ -Patient reevaluated. Patient and family updated. Family has concerns for patient being at home. They states she is unsteady and confused at times. Patient is agreement with this. Patient still denies any chest discomfort or dyspnea. Patient does have elevated troponin and will need further evaluation regarding this. Undiagnosed new problem with uncertain prognosis? @ -No Drug Therapy requiring intensive monitoring for toxicity (Heparin, Nitro, Insulin, Cardizem)? @ -Patient will be placed on heparin drip and will need monitoring for this Were any procedures done? @ -No Diagnosis/symptom? @ -Weakness Acute, or Chronic, or Acute on Chronic? @ -Acute Uncomplicated (without systemic symptoms) or Complicated (systemic symptoms)? @ -default Side effects of treatment? @ -No Exacerbation, Progression, or Severe Exacerbation? @ -No Poses a threat to life or bodily function? How? (Chest pain, [place], [place], pneumonia, PE, COPD, DKA, ARF, appy, cholecystitis, CVA, Diverticulitis, Homicidal, Suicidal, threat to staff... and all critical care pts) @ -No - Lab Data Result diagrams: 03/18/23 18:40 03/18/23 18:40 Lab Results 03/18/23 03/18/23 03/18/23 Range/Units 18:40 18:40 18:40 WBC 15.0 H (3.8-10.6) k/uL RBC 3.23 L (3.80-5.40) m/uL Hgb 9.6 L D (11.4-16.0) gm/dL Hct 29.7 L (34.0-46.0) % MCV 92.0 (80.0-100.0) fL MCH 29.9 (25.0-35.0) pg MCHC 32.5 (31.0-37.0) g/dL RDW 13.7 (11.5-15.5) % Plt Count 297 (150-450) k/uL MPV 7.3 Neutrophils % 90 % Lymphocytes % 4 % Monocytes % 4 % Eosinophils % 0 % Basophils % 0 % Neutrophils # 13.5 H (1.3-7.7) k/uL Lymphocytes # 0.5 L (1.0-4.8) k/uL Monocytes # 0.6 (0-1.0) k/uL Eosinophils # 0.0 (0-0.7) k/uL Basophils # 0.0 (0-0.2) k/uL Hypochromasia Slight PT 10.5 (9.0-12.0) sec INR 1.0 (<1.2) APTT 20.3 L (22.0-30.0) sec Sodium 133 L (137-145) mmol/L Potassium 4.2 (3.5-5.1) mmol/L Chloride 103 (98-107) mmol/L Carbon Dioxide 24 (22-30) mmol/L Anion Gap 6 mmol/L BUN 16 (7-17) mg/dL Creatinine 0.72 (0.52-1.04) mg/dL Est GFR (CKD-EPI)AfAm >90 (>60 ml/min/1.73 sqM) Est GFR (CKD-EPI)NonAf 85 (>60 ml/min/1.73 sqM) Glucose 178 H (74-99) mg/dL Calcium 8.7 (8.4-10.2) mg/dL Magnesium 1.9 (1.6-2.3) mg/dL Total Bilirubin 0.7 (0.2-1.3) mg/dL AST 64 H (14-36) U/L ALT 55 H (4-34) U/L Alkaline Phosphatase 94 (38-126) U/L Troponin I (0.000-0.034) ng/mL Total Protein 6.3 (6.3-8.2) g/dL Albumin 2.6 L (3.5-5.0) g/dL 03/18/23 Range/Units 18:40 WBC (3.8-10.6) k/uL RBC (3.80-5.40) m/uL Hgb (11.4-16.0) gm/dL Hct (34.0-46.0) % MCV (80.0-100.0) fL MCH (25.0-35.0) pg MCHC (31.0-37.0) g/dL RDW (11.5-15.5) % Plt Count (150-450) k/uL MPV Neutrophils % % Lymphocytes % % Monocytes % % Eosinophils % % Basophils % % Neutrophils # (1.3-7.7) k/uL Lymphocytes # (1.0-4.8) k/uL Monocytes # (0-1.0) k/uL Eosinophils # (0-0.7) k/uL Basophils # (0-0.2) k/uL Hypochromasia PT (9.0-12.0) sec INR (<1.2) APTT (22.0-30.0) sec Sodium (137-145) mmol/L Potassium (3.5-5.1) mmol/L Chloride (98-107) mmol/L Carbon Dioxide (22-30) mmol/L Anion Gap mmol/L BUN (7-17) mg/dL Creatinine (0.52-1.04) mg/dL Est GFR (CKD-EPI)AfAm (>60 ml/min/1.73 sqM) Est GFR (CKD-EPI)NonAf (>60 ml/min/1.73 sqM) Glucose (74-99) mg/dL Calcium (8.4-10.2) mg/dL Magnesium (1.6-2.3) mg/dL Total Bilirubin (0.2-1.3) mg/dL AST (14-36) U/L ALT (4-34) U/L Alkaline Phosphatase (38-126) U/L Troponin I 0.871 H* (0.000-0.034) ng/mL Total Protein (6.3-8.2) g/dL Albumin (3.5-5.0) g/dL Disposition Clinical Impression: Weakness Disposition: ADMITTED IP TO THIS [facility] Is patient prescribed a controlled substance at d/c from ED?: No Referrals: Cayden Jacobsen MD [Primary Care Provider] - 1-2 days Time of Disposition: 21:37
[2023-03-18 19:06] LABS: Prothrombin Time 10.5 sec (9.0-12.0)
[2023-03-18 19:08] LABS: Partial Thromboplastin Time 20.3 sec (22.0-30.0)
[2023-03-18 19:11] LABS: ALT 55 U/L (4-34); AST 64 U/L (14-36); African American GFR (CKD) >90 (>60 ml/min/1.73 sqM); Albumin 2.6 g/dL (3.5-5.0); Alkaline Phosphatase 94 U/L (38-126); Anion Gap 6 mmol/L; Blood Urea Nitrogen 16 mg/dL (7-17); Calcium 8.7 mg/dL (8.4-10.2); Carbon Dioxide 24 mmol/L (22-30); Chloride 103 mmol/L (98-107); Glucose 178 mg/dL (74-99); Magnesium 1.9 mg/dL (1.6-2.3); Non-African American GFR(CKD) 85 (>60 ml/min/1.73 sqM); Potassium 4.2 mmol/L (3.5-5.1); Sodium 133 mmol/L (137-145); Total Bilirubin 0.7 mg/dL (0.2-1.3); Total Protein 6.3 g/dL (6.3-8.2)
[2023-03-18 19:14] LABS: Basophils % (A) 0 %; Eosinophils % (A) 0 %; HCT 29.7 % (34.0-46.0); Hypochromasia Slight; Lymphocytes # (A) 0.5 k/uL (1.0-4.8); Lymphocytes % (A) 4 %; MCH 29.9 pg (25.0-35.0); MCHC 32.5 g/dL (31.0-37.0); Mean Platelet Volume 7.3; Monocytes # (A) 0.6 k/uL (0-1.0); Monocytes % (A) 4 %; Neutrophils # (A) 13.5 k/uL (1.3-7.7); Neutrophils % (A) 90 %; Platelet Count 297 k/uL (150-450); RBC 3.23 m/uL (3.80-5.40); RDW 13.7 % (11.5-15.5)
[2023-03-18 19:19] LABS: HGB 9.6 gm/dL (11.4-16.0)
--- NOTE | 2023-03-18 19:54 | XR ---
EXAMINATION TYPE: XR chest 1V portable DATE OF EXAM: 03/18/2023 COMPARISON: 01/22/2023 INDICATION: Fall TECHNIQUE: Single frontal view of the chest is obtained. FINDINGS: The heart size is normal. The pulmonary vasculature is normal. The lungs are clear. No acute posttraumatic change is evident. No pneumothorax is evident. No displaced rib fractures are identified. IMPRESSION: 1. No acute pulmonary process.
--- NOTE | 2023-03-18 20:04 | CT ---
EXAMINATION TYPE: CT brain sherri wo con DATE OF EXAM: 03/18/2023 COMPARISON: None HISTORY: AMS. Frequent falls. Pt fell today from standing at 10am. No LOC and no blood thinners. CT DLP: 1306.8 mGycm, Automated exposure control for dose reduction was used. CONTRAST: None CT of the brain is performed utilizing 3 mm thick sections through the posterior fossa and 3 mm thick sections through the remaining calvarium. Study is performed within 24 hours of arrival to the hospital. No abnormal hyperdensity is present to suggest an acute intracranial hemorrhage. No mass lesion is evident. No acute infarcts are evident. Confluent periventricular white matter hypodensity is present. Ventricles and sulci are appropriate for the patient age. Paranasal sinuses and mastoid air cells within the [id number] are clear. IMPRESSIONS: 1. Chronic appearing confluent periventricular white matter ischemic-type changes. 2. No acute intracranial process. Follow-up MRI can be performed as clinically indicated CT cervical spine. COMPARISON: None CT of the cervical spine is performed in the axial plane at 2 mm thick sections. Reconstructed image s in the coronal, and sagittal plane are reviewed on the computer. No acute fractures are evident. There is side bending of the cervical spine towards the right. Some artifact on the axial images. The cervical lordosis appears appropriate for the patient's age. There is narrowing of disc height at C5-6, C6-7. Vertebral body heights are preserved. No spinal canal stenosis is evident. Some endplate spurring is noted at C5-6 and C6-7. Foraminal narrowing is present due to uncovertebral joint hypertrophy. This appears greatest on the l eft at C4-5, C6-7 and bilaterally C5-6 . IMPRESSION: 1. No acute fractures cervical spine. 2. Degenerative uncovertebral joint changes contributing to foraminal stenosis. 3. Degenerative disc disease
[2023-03-18] MEDS ORDERED: ACETAMINOPHEN TAB 325 MG TAB PO PRN (21:37)
[2023-03-18] MEDS ORDERED: NALOXONE 0.4 MG/ML 1 ML VIAL IV PRN (21:37)
[2023-03-18] MEDS ORDERED: HEPARIN SODIUM 1,000 UN/ML (10ML VL) IV ONE (21:37)
[2023-03-18] MEDS ORDERED: HEPARIN SODIUM 1,000 UN/ML (10ML VL) IV PRN (21:37)
[2023-03-18] MEDS ORDERED: ASPIRIN 81 MG PO STA (21:38)
[2023-03-18] MEDS ORDERED: HEPARIN SOD,PORK IN 0.45% NACL 25,000 UNIT in 0.45% NACL 1 250ML.BAG IV SCH (21:45)
[2023-03-18] MEDS ORDERED: GABAPENTIN 300 MG CAP PO PRN (23:02)
[2023-03-19 04:26] LABS: Basophils % (A) 0 %; Eosinophils # (A) 0.1 k/uL (0-0.7); Eosinophils % (A) 1 %; HCT 29.9 % (34.0-46.0); HGB 9.8 gm/dL (11.4-16.0); Hypochromasia Slight; Lymphocytes # (A) 1.4 k/uL (1.0-4.8); Lymphocytes % (A) 11 %; MCH 30.3 pg (25.0-35.0); MCHC 32.6 g/dL (31.0-37.0); MCV 92.9 fL (80.0-100.0); Mean Platelet Volume 7.2; Monocytes # (A) 0.7 k/uL (0-1.0); Monocytes % (A) 6 %; Neutrophils # (A) 9.5 k/uL (1.3-7.7); Neutrophils % (A) 78 %; Platelet Count 320 k/uL (150-450); RBC 3.22 m/uL (3.80-5.40); RDW 13.8 % (11.5-15.5); WBC 12.2 k/uL (3.8-10.6)
[2023-03-19 04:34] LABS: Partial Thromboplastin Time 41.7 sec (22.0-30.0); Prothrombin Time 10.2 sec (9.0-12.0)
[2023-03-19 04:41] LABS: ALT 53 U/L (4-34); AST 56 U/L (14-36); African American GFR (CKD) >90 (>60 ml/min/1.73 sqM); Albumin 2.4 g/dL (3.5-5.0); Alkaline Phosphatase 91 U/L (38-126); Anion Gap 4 mmol/L; Blood Urea Nitrogen 15 mg/dL (7-17); Calcium 8.8 mg/dL (8.4-10.2); Carbon Dioxide 24 mmol/L (22-30); Chloride 106 mmol/L (98-107); Glucose 107 mg/dL (74-99); Non-African American GFR(CKD) 86 (>60 ml/min/1.73 sqM); Potassium 4.4 mmol/L (3.5-5.1); Sodium 134 mmol/L (137-145); Total Bilirubin 0.5 mg/dL (0.2-1.3); Total Protein 5.9 g/dL (6.3-8.2)
[2023-03-19] MEDS: ASCORBIC ACID 500 MG TAB PO SCH (08:19)
[2023-03-19] MEDS: FAMOTIDINE 20 MG TAB PO SCH ×2 (08:20→21:03)
[2023-03-19] MEDS: CHOLECALCIFEROL 25 MCG (1000 IU) TABLET PO SCH (08:20)
[2023-03-19] MEDS: PANTOPRAZOLE 40 MG TABLET PO SCH (08:20)
[2023-03-19] MEDS ORDERED: ASPIRIN 325 MG TAB PO SCH (09:00)
[2023-03-19] MEDS: APIXABAN 5 MG TAB PO SCH ×2 (09:32→21:00)
[2023-03-19] MEDS: VITAMIN E (DL,TOCOPHERYL ACET) 400 UNIT (180 MG) CAP PO SCH (09:32)
[2023-03-19] MEDS: MULTIVITAMINS, THERA 1 EACH TAB PO SCH (10:03)
[2023-03-19] MEDS: METOPROLOL TARTRATE 50 MG TAB PO SCH ×2 (10:03→21:00)
--- NOTE | 2023-03-19 11:08 | CA ---
Transthoracic Echo Report Name: Orquidea Marvin Age: 72 Gender: F : 1950 Exam Date: 03/19/2023 09:11 Exam Location: [facility] Ht (in): 61 Wt (lb): 113 Ordering Physician: Francois Coker DO Attending/Referring Phys: Telephone Information Clerk Keisha Suarez RDCS Procedure CPT: Indications: weak Cardiac Hx: Technical Quality: Good Contrast 1: Total Dose (mL): Contrast 2: Total Dose (mL): MEASUREMENTS (Male / Female) Normal Values 2D ECHO LV Diastolic Diameter PLAX 4.0 cm 4.2 - 5.9 / 3.9 - 5.3 cm LV Systolic Diameter PLAX 2.6 cm IVS Diastolic Thickness 1.1 cm 0.6 - 1.0 / 0.6 - 0.9 cm LVPW Diastolic Thickness 1.1 cm 0.6 - 1.0 / 0.6 - 0.9 cm LV Relative Wall Thickness 0.6 RV Internal Dim ED PLAX 3.3 cm LVOT Diameter 1.9 cm LA Systolic Diameter LX 3.4 cm 3.0 - 4.0 / 2.7 - 3.8 cm LV Diastolic Volume MOD 4C 90.6 cm??? LV Systolic Volume MOD 4C 42.0 cm??? LV Ejection Fraction MOD 4C 53.6 % LV Cardiac Index MOD 4C 3298.6 cm???/min???m??? LV Diastolic Length 4C 7.7 cm LV Systolic Length 4C 6.7 cm LV Diastolic Volume MOD 2C 68.7 cm??? LV Systolic Volume MOD 2C 29.8 cm??? LV Ejection Fraction MOD 2C 56.6 % LV Cardiac Index MOD 2C 2640.1 cm???/min???m??? LV Diastolic Length 2C 7.9 cm LV Systolic Length 2C 6.8 cm LA Volume 47.7 cm??? 18 - 58 / 22 - 52 cm??? LA Volume Index 32.0 cm???/m??? 16 - 28 cm???/m??? M-MODE Aortic Root Diameter MM 3.5 cm MV E Point Septal Separation 0.6 cm DOPPLER AV Peak Velocity 514.7 cm/s AV Peak Gradient 106.0 mmHg AV Mean Velocity 377.1 cm/s AV Mean Gradient 63.6 mmHg AV Velocity Time Integral 102.3 cm AI Peak Velocity 550.1 cm/s AI Peak Gradient 121.1 mmHg AI Pressure Half Time 407.7 ms LVOT Peak Velocity 306.4 cm/s LVOT Peak Gradient 37.5 mmHg AV Area Cont Eq pk 1.7 cm??? MV Peak Velocity 131.3 cm/s MV Peak Gradient 6.9 mmHg MV Mean Velocity 78.8 cm/s MV Mean Gradient 2.9 mmHg MV Velocity Time Integral 32.4 cm MV Area PHT 3.9 cm??? Mitral E Point Velocity 99.6 cm/s Mitral A Point Velocity 115.3 cm/s Mitral E to A Ratio 0.9 MV Deceleration Time 196.4 ms FINDINGS Left Ventricle Left ventricular ejection fraction is estimated at 55-60 %. Left ventricular cavity size normal. Mildly increased septal wall thickness. Mildly increased posterior wall thickness. Right Ventricle Mild right ventricular dilatation. Unable to estimate the right ventricular systolic pressure. Right Atrium Normal right atrial size. Left Atrium Mildly increased left atrial volume. Mitral Valve Structurally normal mitral valve. Mild mitral regurgitation. Aortic Valve Biprosthetic AOV stenosis with mean gradient of 64 mmHg and max gradient of 106 mmHg Tricuspid Valve Structurally normal tricuspid valve. No tricuspid stenosis, regurgitation or prolapse. Pulmonic Valve Structurally normal pulmonic valve. No pulmonic regurgitation. Pericardium No pericardial effusion. Aorta Normal size aortic root and proximal ascending aorta. CONCLUSIONS LVH with preserved systolic function Mildly enlarged right ventricle Bioprosthetic valve gradients seem significantly elevated Suboptimal visualization of the aortic valve Previewed by: Dr. Blaze Sesay MD (Electronically Signed) Final Date: 19 March 2023 11:08
[2023-03-19] MEDS: LORazepam 2 MG/ML INJ IV PRN (15:19)
--- NOTE | 2023-03-19 15:24 | P.CRDCN ---
History of Present Illness Consult date: 03/19/23 Reason for Consult (text): weakness, elevated trops History of present illness: History of present illness: This is a 72-year-old female patient Dr. Mosley a past medical history of valvular heart disease status post aortic valve replacement using bioprosthetic valve, dyslipidemia. We have been asked to evaluate the patient for weakness and e levated troponins. History is obtained from the patient and her . Patient apparently passed out while in the bathroom found on the floor. For the past couple months she has had difficulty with ambulation due to weakness can hardly walk. Her states that she was incoherent and confused yesterday. Weakness has continued and she has had workup outpatient. She was seen by Dr. Mosley in the office on 03/03 and everything seems stable at that time. She has a scheduled MRI of the brain on Friday. Patient has no previous history of atrial fibrillation. EKG sinus rhythm, telemetry atrial fibrillation Chest x-ray: COPD CAT scan of the brain and cervical spine revealed chronic white matter ischemic changes. No acute intracranial process. No acute fractures of the cervical spine. Degenerative joint changes contributed to foraminal stenosis. DDD. Echocardiogram reveals LVH with preserved systolic function. Mildly enlarged right ventricle. Bioprosthetic valve gradient seems significantly elevated. Suboptimal visualization of the aortic valve. Troponin 0.871, 0.647, 0.476. WBC 12.2, hemoglobin 9.8. AST 56, ALT 53. Sodium 134, potassium 4.4, creatinine 0.71. Home cardiac medications: Atorvastatin 40 mg at bedtime Review Of Systems: At the time of my evaluation: Constitutional: No fever, no chills. + weakness, +fatigue + lethargy. EENT: No headache. No dizziness. Lungs: No shortness of breath, cough, no sputum production. No wheezing. Cardiovascular: No chest pain, no lower extremity edema. No palpitations. No paroxysmal nocturnal dyspnea. No orthopnea. No lightheadedness or dizziness. No syncopal episodes. Abdominal: No abdominal pain. No nausea, vomiting. No diarrhea. No constipation. No bloody or tarry stools. Genitourinary: No dysuria.. No urinary retention. Musculoskeletal: No myalgias. + muscle weakness, + frequent falls. No back pain. No neck pain. Integumentary: No wounds. No rash. No unusual bruising. Neurologic: No aphasia. No facial droop. No change in mentation. No head injury. No headache. Physical examination: Gen: This is a 72-year-old female. She is resting on ER stretcher. To be in no acute distress.] VS: reviewed HEENT: Head is atraumatic, normocephalic. Pupils equal, round. Sclerae is anicte vangie. NECK: Supple. No JVD. . LUNGS: Clear to auscultation. No wheezes or rhonchi. No intercostal retractions. HEART: Irregular rate and rhythm. Systolic murmur. ABDOMEN: Soft No tenderness. EXTREMITIES: No pedal edema. No calf tenderness. NEUROLOGICAL: Patient is awake, alert and oriented x3. Assessment: New-onset if atrial fibrillation Valvular heart disease status post aortic valve replacement with bioprosthetic valve Dyslipidemia Plan: Continue home atorvastatin Patient will be started on eliquis 5 mg twice daily and discontinue heparin drip Start patient on metoprolol tartrate 50 mg twice daily Nothing by mouth after midnight for possible MAUREEN and cardioversion if patient does not convert overnight Further recommendations to follow based upon clinical course Thank you kindly for this consultation. Nurse practitioner note has been reviewed, I agree with documented findings and plan of care. Patient was seen and examined. Past Medical History Past Medical History: Cancer Additional Past Medical History / Comment(s): kidney cancer History of Any Multi-Drug Resistant Organisms: None Reported Additional Past Surgical History / Comment(s): rt kidney removal Past Psychological History: Anxiety, Depression Smoking Status: Never smoker Past Alcohol Use History: None Reported Past Drug Use History: None Reported - Past Family History Mother Family Medical History: Cancer Additional Family Medical History / Comment(s): Ovarian cancer Father Family Medical History: Dementia Medications and Allergies Home Medications Medication Instructions Recorded Confirmed Type Albuterol Inhaler [Ventolin Hfa 1 - 2 puff INHALATION RT-Q6H PRN 01/22/23 03/18/23 History Inhaler] Ascorbic Acid [Vitamin C] 1,000 mg PO DAILY 01/22/23 03/18/23 History Atorvastatin [Lipitor] 40 mg PO HS 01/22/23 03/18/23 History Cholecalciferol [Vitamin D3 (25 50 mcg PO DAILY 01/22/23 03/18/23 History Mcg = 1000 Iu)] Famotidine 40 mg PO HS 01/22/23 03/18/23 History Gabapentin [Neurontin] 300 mg PO TID PRN 01/22/23 03/18/23 History Multivitamins, Thera [Multivitamin 1 tab PO DAILY 01/22/23 03/18/23 History (formulary)] Omeprazole 40 mg PO AC-BRKFST 01/22/23 03/18/23 History Vitamin E (Dl,Tocopheryl Acet) 400 unit PO DAILY 01/22/23 03/18/23 History [Vitamin E (400 Iu = 180 mg)] FLUoxetine HCL [Sarafem] 20 mg PO HS 03/18/23 03/18/23 History Allergies Allergy/AdvReac Type Severity Reaction Status Date / Time ceftriaxone [From Rocephin] Allergy Rash/Hives Verified 03/18/23 21:36 Penicillins Allergy Rash/Hives Verified 03/18/23 21:36 Physical Exam Vitals: Vital Signs Temp Pulse Pulse Resp BP Pulse Ox 03/19/23 08:08 97 03/19/23 07:00 98.2 F 93 25 H 148/87 97 03/19/23 06:00 98.4 F 89 16 156/88 98 03/19/23 05:00 84 16 154/78 98 03/19/23 04:00 81 16 151/90 98 03/19/23 03:00 82 16 153/93 99 03/19/23 02:00 79 18 127/72 97 03/18/23 23:04 89 18 118/78 97 03/18/23 23:00 82 16 110/79 95 03/18/23 22:02 90 20 129/86 90 L 03/18/23 21:12 18 03/18/23 20:40 93 18 118/69 94 L 03/18/23 19:31 97 18 115/69 96 03/18/23 18:31 105 H 18 03/18/23 18:02 98.2 F 104 H 18 110/60 99 Intake and Output 03/18/23 03/19/23 03/19/23 22:59 06:59 14:59 Intake Total 42.442 Balance 42.442 Intake: Intake, IV Titration 42.442 Amount Heparin Sod,Pork in 0.45% 42.442 NaCl 25,000 unit In 0.45 % NaCl 1 250ml.bag @ 12 UNITS/KG/HR 6.151 mls/hr IV .Q24H REPLACED BY [facility] Rx#: [id number] Other: Weight 51.256 kg Results 03/19/23 03:28 03/19/23 03:28 Cardiac Enzymes 03/18/23 03/18/23 03/19/23 Range/Units 18:40 18:40 00:25 AST 64 H (14-36) U/L Troponin I 0.871 H* 0.647 H* (0.000-0.034) ng/mL 03/19/23 03/19/23 Range/Units 03:28 03:28 AST 56 H (14-36) U/L Troponin I 0.476 H* (0.000-0.034) ng/mL Coagulation 03/18/23 03/19/23 Range/Units 18:40 03:28 PT 10.5 10.2 (9.0-12.0) sec APTT 20.3 L 41.7 H (22.0-30.0) sec CBC 03/18/23 03/19/23 Range/Units 18:40 03:28 WBC 15.0 H 12.2 H (3.8-10.6) k/uL RBC 3.23 L 3.22 L (3.80-5.40) m/uL Hgb 9.6 L D 9.8 L (11.4-16.0) gm/dL Hct 29.7 L 29.9 L (34.0-46.0) % Plt Count 297 320 (150-450) k/uL Comprehensive Metabolic Panel 03/18/23 03/19/23 Range/Units 18:40 03:28 Sodium 133 L 134 L (137-145) mmol/L Potassium 4.2 4.4 (3.5-5.1) mmol/L Chloride 103 106 (98-107) mmol/L Carbon Dioxide 24 24 (22-30) mmol/L BUN 16 15 (7-17) mg/dL Creatinine 0.72 0.71 (0.52-1.04) mg/dL Glucose 178 H 107 H (74-99) mg/dL Calcium 8.7 8.8 (8.4-10.2) mg/dL AST 64 H 56 H (14-36) U/L ALT 55 H 53 H (4-34) U/L Alkaline Phosphatase 94 91 (38-126) U/L Total Protein 6.3 5.9 L (6.3-8.2) g/dL Albumin 2.6 L 2.4 L (3.5-5.0) g/dL Current Medications Generic Name Dose Route Start Last Admin Trade Name Freq PRN Reason Stop Dose Admin Acetaminophen 650 mg 03/18/23 21:37 Acetaminophen Tab 325 Mg Tab PO Q6HR PRN Mild Pain or Fever > 100.5 Albuterol Sulfate 2.5 mg 03/18/23 23:02 Albuterol Nebulized 2.5 Mg/3 Ml INHALATION RT-Q6H PRN Shortness Of Breath Ascorbic Acid 1,000 mg 03/19/23 09:00 03/19/23 08:19 Ascorbic Acid 500 Mg Tab PO 1,000 mg DAILY MARGARITA Administration Aspirin 325 mg 03/19/23 09:00 03/19/23 08:20 Aspirin 325 Mg Tab PO 325 mg DAILY MARGARITA Administration Atorvastatin Calcium 40 mg 03/19/23 21:00 Atorvastatin 40 Mg Tab PO HS MARGARITA Cholecalciferol 50 mcg 03/19/23 09:00 03/19/23 08:20 Cholecalciferol 25 Mcg (1000 Iu) Tablet PO 50 mcg DAILY MARGARITA Administration Famotidine 20 mg 03/19/23 09:00 03/19/23 08:20 Famotidine 20 Mg Tab PO 20 mg BID MARGARITA Administration Famotidine 40 mg 03/19/23 21:00 Famotidine 20 Mg Tab PO HS MARGARITA Fluoxetine HCl 20 mg 03/19/23 21:00 Fluoxetine Hcl 20 Mg Cap PO HS MARGARITA Gabapentin 300 mg 03/18/23 23:02 Gabapentin 300 Mg Cap PO TID PRN Pain Heparin Sodium (Porcine) 0 unit 03/18/23 21:37 03/19/23 04:52 Heparin Sodium 1,000 Un/Ml (10ml Vl) IV 1,275 unit PER PROTOCOL PRN Administration Low PTT Protocol Heparin Sodium/Sodium Chloride 250 mls @ 6.151 mls/hr 03/18/23 21:45 03/19/23 04:53 25,000 unit/ Sodium Chloride IV 14 units/kg/hr .Q24H MARGARITA 7.176 mls/hr Titration Protocol 12 UNITS/KG/HR Multivitamins 1 each 03/19/23 09:00 Multivitamins, Thera 1 Each Tab PO DAILY REPLACED BY [facility] Naloxone HCl 0.2 mg 03/18/23 21:37 Naloxone 0.4 Mg/Ml 1 Ml Vial IV Q2M PRN Opioid Reversal Pantoprazole Sodium 40 mg 03/19/23 07:30 03/19/23 08:20 Pantoprazole 40 Mg Tablet PO 40 mg AC-BRKFST MARGARITA Administration Vitamin E 400 unit 03/19/23 09:00 Vitamin E (Dl,Tocopheryl Acet) 400 Unit (180 Mg) Cap PO DAILY MARGARITA Intake and Output 03/18/23 03/19/23 03/19/23 22:59 06:59 14:59 Intake Total 42.442 Balance 42.442 Intake: Intake, IV Titration 42.442 Amount Heparin Sod,Pork in 0.45% 42.442 NaCl 25,000 unit In 0.45 % NaCl 1 250ml.bag @ 12 UNITS/KG/HR 6.151 mls/hr IV .Q24H REPLACED BY [facility] Rx#: [id number] Other: Weight 51.256 kg 03/19/23 03:28 03/19/23 03:28
--- NOTE | 2023-03-19 15:32 | P.HPIM ---
History of Present Illness H&P Date: 03/19/23 HISTORY OF PRESENT ILLNESS This is a 72-year-old female with past medical history of hyperlipidemia, fibromyalgia, gastroesophageal reflux disease, congenital insufficiency of the aortic valve, vitamin D deficiency, ALLERGIC rhinitis, mild intermittent asthma, major depressive disorder. Patient apparently passed out while in the bathroom found on the floor. For the past couple months she has had difficulty with ambulation due to weakness can hardly walk. Her states that she was incoherent and confused yesterday. Weakness has continued and she has had workup outpatient. She was seen by Dr. Mosley in the office on 03/03 and everything seemed stable at that time. She has a scheduled MRI of the brain on Friday. Patient has no previous history of atrial fibrillation. Patient has be en seen by cardiology and started on eliquis and metoprolol for atrial fibrillation with plan for possible MAUREEN and electrical cardioversion tomorrow patient does not convert to sinus rhythm overnight REVIEW OF SYSTEMS Constitutional: No fever, no chills, no night sweats. No weight change. + weakness, +fatigue + lethargy. No daytime sleepiness. EENT: No headache. No blurred vision or double vision, no loss of vision. No loss of Hearing, no ringing in the ears, no dizziness. No nasal drainage or congestion. No epistaxis. No sore throat. Lungs: No shortness of breath, cough, no sputum production. No wheezing. Cardiovascular: No chest pain, no lower extremity edema. No palpitations. No paroxysmal nocturnal dyspnea. No orthopnea. No lightheadedness or dizziness. No syncopal episodes. Abdominal: No abdominal pain. No nausea, vomiting. No diarrhea. No constipation. No bloody or tarry stools. No loss of appetite. Genitourinary: No dysuria, increased frequency, urgency. No urinary retention. Musculoskeletal: No myalgias. + muscle weakness, + frequent falls. No back pain. No neck pain. Integumentary: No wounds, no lesions. No rash or pruritus. No unusual bruising. No change in hair or nails. Neurologic: No aphasia. No facial droop. No change in mentation. No head injury. No headache. No paralysis. No paresthesia. Psychiatric: No depression. No anxiety. No mood swings. Endocrine: No abnormal blood sugars. No weight change. No excessive sweating or thirst. No cold intolerance. MEDICAL HISTORY Hyperlipidemia Fibromyalgia Gastric after reflux disease Congenital insufficiency of the aortic valve Vitamin D deficiency ALLERGIC rhinitis Mild intermittent asthma Major depressive disorder SURGICAL HISTORY Aortic valve replacement 2017 Hernia repair 2013 Kidney removal 2012 Gums surgery 2006 Foot surgery 2006, cholecystectomy 2001 Bilateral oophorectomies with bladder suspension 1997 Breast reduction surgery 1993 Colonoscopy 2013 SOCIAL HISTORY Patient drinks 1-2 coffees per day, no marijuana use, alcohol is social. She lives at home with her . FAMILY HISTORY Father at age 77 with coronary artery disease, kidney disease, dementia and heart failure diagnosed with heart attack. Mother at age 57 from ovarian cancer. Patient has 3 sisters one with myeloproliferative disorder and emphysema one with breast cancer and thyroid disease in other is healthy with no major medical problems. Patient has one son that at age 21 from a motor vehicle accident. Patient has a daughter with lobular breast cancer status post double mastectomies.. PHYSICAL EXAMINATION Gen: This is a frail-appearing 72-year-old female. She is resting on the ear structure. HEENT: Head is atraumatic, normocephalic. Pupils equal, round. Sclerae is anicteric. Oral mucous membranes are slightly dry. NECK: Supple. No JVD. No lymphadenopathy. No thyromegaly. LUNGS: Clear to auscultation. No wheezes or rhonchi. No intercostal retraction s. HEART: Regular rate and rhythm. Systolic murmur. ABDOMEN: Soft. Bowel sounds are present. No masses. No tenderness. EXTREMITIES: No pedal edema. No calf tenderness. NEUROLOGICAL: Patient is awake, alert and oriented x3. Cranial nerves 2 through 12 are grossly intact. ASSESSMENT AND PLAN 1. New onset of atrial fibrillation, paroxysmal. Consult cardiology appreciated. Patient started on eliquis 5 mg twice daily and metoprolol 50 g twice daily. Patient is to be nothing by mouth at midnight for possible MAUREEN and cardioversion with Dr. Mosley if she does not convert overnight to sinus rhythm. 2. Generalized weakness with frequent falls possibly related to atrial fibrillation. 3. Valvular heart disease status post aortic valve replacement with bioprosthetic valve. Echocardiogram has been obtained which reveals LVH with preserved systolic function. Mildly enlarged right ventricle. Bioprosthetic valve gradient seems significantly elevated. Suboptimal visualization of the aortic valve. 4. Dyslipidemia. Continue patient on atorvastatin 40 mg at bedtime. 5. Gastroesophageal reflux disease and GI prophylaxis. Continue Pepcid 40 mg at bedtime and Protonix 40 mg daily. 6. Recurrent depression. Continue Prozac 20 g at bedtime. 7. Fibromyalgia. Continue gabapentin 300 mg 3 times daily as needed. 8. DVT prophylaxis. Eliquis. Patient will be admitted to the hospital for a minimum of 2 night stay. DISCHARGE PLAN To be determined. Consult with PT and OT added. Impression and plan of care have been directed as dictated by the signing physician. Miriam Weber nurse practitioner acting as scribe for signing physician. Past Medical History Past Medical History: Cancer Additional Past Medical History / Comment(s): kidney cancer History of Any Multi-Drug Resistant Organisms: None Reported Additional Past Surgical History / Comment(s): rt kidney removal Past Psychological History: Anxiety, Depression Smoking Status: Never smoker Past Alcohol Use History: None Reported Past Drug Use History: None Reported - Past Family History Mother Family Medical History: Cancer Additional Family Medical History / Comment(s): Ovarian cancer Father Family Medical History: Dementia Medications and Allergies Home Medications Medication Instructions Recorded Confirmed Type Albuterol Inhaler [Ventolin Hfa 1 - 2 puff INHALATION RT-Q6H PRN 01/22/23 03/18/23 History Inhaler] Ascorbic Acid [Vitamin C] 1,000 mg PO DAILY 01/22/23 03/18/23 History Atorvastatin [Lipitor] 40 mg PO HS 01/22/23 03/18/23 History Cholecalciferol [Vitamin D3 (25 50 mcg PO DAILY 01/22/23 03/18/23 History Mcg = 1000 Iu)] Famotidine 40 mg PO HS 01/22/23 03/18/23 History Gabapentin [Neurontin] 300 mg PO TID PRN 01/22/23 03/18/23 History Multivitamins, Thera [Multivitamin 1 tab PO DAILY 01/22/23 03/18/23 History (formulary)] Omeprazole 40 mg PO AC-BRKFST 01/22/23 03/18/23 History Vitamin E (Dl,Tocopheryl Acet) 400 unit PO DAILY 01/22/23 03/18/23 History [Vitamin E (400 Iu = 180 mg)] FLUoxetine HCL [Sarafem] 20 mg PO HS 03/18/23 03/18/23 History Allergies Allergy/AdvReac Type Severity Reaction Status Date / Time ceftriaxone [From [facility]] Allergy Rash/Hives Verified 03/18/23 21:36 Penicillins Allergy Rash/Hives Verified 03/18/23 21:36 Physical Exam Vitals: Vital Signs Temp Pulse Pulse Resp BP Pulse Ox 03/19/23 08:08 97 03/19/23 07:00 98.2 F 93 25 H 148/87 97 03/19/23 06:00 98.4 F 89 16 156/88 98 03/19/23 05:00 84 16 154/78 98 03/19/23 04:00 81 16 151/90 98 03/19/23 03:00 82 16 153/93 99 03/19/23 02:00 79 18 127/72 97 03/18/23 23:04 89 18 118/78 97 03/18/23 23:00 82 16 110/79 95 03/18/23 22:02 90 20 129/86 90 L 03/18/23 21:12 18 03/18/23 20:40 93 18 118/69 94 L 03/18/23 19:31 97 18 115/69 96 03/18/23 18:31 105 H 18 03/18/23 18:02 98.2 F 104 H 18 110/60 99 Intake and Output 03/18/23 03/19/23 03/19/23 22:59 06:59 14:59 Intake Total 42.442 Balance 42.442 Intake: Intake, IV Titration 42.442 Amount Heparin Sod,Pork in 0.45% 42.442 NaCl 25,000 unit In 0.45 % NaCl 1 250ml.bag @ 12 UNITS/KG/HR 6.151 mls/hr IV .Q24H [facility] Rx#: [id number] Other: Weight 51.256 kg Results CBC & Chem 7: 03/19/23 03:28 03/19/23 03:28 Labs: Abnormal Lab Results - Last 24 Hours (Table) 03/18/23 03/18/23 03/18/23 Range/Units 18:40 18:40 18:40 WBC 15.0 H (3.8-10.6) k/uL RBC 3.23 L (3.80-5.40) m/uL Hgb 9.6 L D (11.4-16.0) gm/dL Hct 29.7 L (34.0-46.0) % Neutrophils # 13.5 H (1.3-7.7) k/uL Lymphocytes # 0.5 L (1.0-4.8) k/uL APTT 20.3 L (22.0-30.0) sec Sodium 133 L (137-145) mmol/L Glucose 178 H (74-99) mg/dL AST 64 H (14-36) U/L ALT 55 H (4-34) U/L Troponin I (0.000-0.034) ng/mL Total Protein (6.3-8.2) g/dL Albumin 2.6 L (3.5-5.0) g/dL 03/18/23 03/19/23 03/19/23 Range/Units 18:40 00:25 03:28 WBC (3.8-10.6) k/uL RBC (3.80-5.40) m/uL Hgb (11.4-16.0) gm/dL Hct (34.0-46.0) % Neutrophils # (1.3-7.7) k/uL Lymphocytes # (1.0-4.8) k/uL APTT (22.0-30.0) sec Sodium (137-145) mmol/L Glucose (74-99) mg/dL AST (14-36) U/L ALT (4-34) U/L Troponin I 0.871 H* 0.647 H* 0.476 H* (0.000-0.034) ng/mL Total Protein (6.3-8.2) g/dL Albumin (3.5-5.0) g/dL 03/19/23 03/19/23 03/19/23 Range/Units 03:28 03:28 03:28 WBC 12.2 H (3.8-10.6) k/uL RBC 3.22 L (3.80-5.40) m/uL Hgb 9.8 L (11.4-16.0) gm/dL Hct 29.9 L (34.0-46.0) % Neutrophils # 9.5 H (1.3-7.7) k/uL Lymphocytes # (1.0-4.8) k/uL APTT 41.7 H (22.0-30.0) sec Sodium 134 L (137-145) mmol/L Glucose 107 H (74-99) mg/dL AST 56 H (14-36) U/L ALT 53 H (4-34) U/L Troponin I (0.000-0.034) ng/mL Total Protein 5.9 L (6.3-8.2) g/dL Albumin 2.4 L (3.5-5.0) g/dL
--- NOTE | 2023-03-19 17:25 | CT ---
EXAMINATION TYPE: CT brain wo con CT DLP: 1068.4 mGycm, Automated exposure control for dose reduction was used. DATE OF EXAM: 03/19/2023 5:06 PM COMPARISON: 03/18/2023. CLINICAL INDICATION:Female, 72 years old with history of Increasing confusion/agitation, AMS TECHNIQUE: Brain: Axial CT images of the brain were obtained with coronal and sagittal reformats created and rev iewed. Contrast used: None. Oral contrast used: None. FINDINGS: Brain: Extra-axial spaces: No abnormal extra-axial fluid collections. Ventricular system: Dilatation in proportion to cerebral atrophy. Cerebral parenchyma: No acute intraparenchymal hemorrhage or mass effect. The mathew-white junction is well differentiated. Scattered hypoattenuating areas are seen within the white matter. Cerebellum: Unremarkable. Mass effect: No evidence of midline shift. Intracranial vasculature: unremarkable Soft tissues: Normal. Calvarium/osseous structures: No depressed skull fracture. Paranasal sinuses and mastoid air cells: Mild scattered paranasal sinus disease. Visualized orbits: Orbital contents are intact. IMPRESSION: 1. No acute intracranial process. 2. Nonspecific white matter changes, likely secondary to chronic small vessel ischemic disease.
[2023-03-19] MEDS: FLUoxetine HCL 20 MG CAP PO SCH (21:00)
[2023-03-19] MEDS: ATORVASTATIN 40 MG TAB PO SCH (21:00)
[2023-03-19] MEDS ORDERED: FAMOTIDINE 20 MG TAB PO SCH (21:00)
[2023-03-20] MEDS: PANTOPRAZOLE 40 MG TABLET PO SCH (06:16)
[2023-03-20] MEDS ORDERED: SODIUM CHLORIDE 0.9% 500 ML 500 ML IV ONE (08:27)
[2023-03-20] MEDS: APIXABAN 5 MG TAB PO SCH ×2 (08:38→23:09)
[2023-03-20] MEDS: FAMOTIDINE 20 MG TAB PO SCH (08:39)
[2023-03-20] MEDS: MULTIVITAMINS, THERA 1 EACH TAB PO SCH (08:39)
[2023-03-20] MEDS: ASCORBIC ACID 500 MG TAB PO SCH (08:39)
[2023-03-20] MEDS: CHOLECALCIFEROL 25 MCG (1000 IU) TABLET PO SCH (08:39)
[2023-03-20] MEDS: VITAMIN E (DL,TOCOPHERYL ACET) 400 UNIT (180 MG) CAP PO SCH (08:39)
[2023-03-20] MEDS: METOPROLOL TARTRATE 50 MG TAB PO SCH (08:39)
[2023-03-20] MEDS: SODIUM CHLORIDE 0.9% 1,000 ML IV SCH ×3 (08:40→23:45)
[2023-03-20] MEDS ORDERED: ASPIRIN 81 MG PO SCH (09:00)
[2023-03-20 09:42] LABS: Basophils % (A) 0 %; Eosinophils # (A) 0.1 k/uL (0-0.7); Eosinophils % (A) 0 %; HCT 28.4 % (34.0-46.0); HGB 9.1 gm/dL (11.4-16.0); Hypochromasia Slight; Lymphocytes # (A) 0.9 k/uL (1.0-4.8); Lymphocytes % (A) 6 %; MCH 29.7 pg (25.0-35.0); MCHC 32.1 g/dL (31.0-37.0); MCV 92.5 fL (80.0-100.0); Mean Platelet Volume 7.2; Monocytes # (A) 0.7 k/uL (0-1.0); Monocytes % (A) 4 %; Neutrophils # (A) 14.6 k/uL (1.3-7.7); Neutrophils % (A) 87 %; Platelet Count 344 k/uL (150-450); RBC 3.07 m/uL (3.80-5.40); RDW 14.1 % (11.5-15.5); WBC 16.8 k/uL (3.8-10.6)
[2023-03-20 10:06] LABS: ALT 40 U/L (4-34); AST 39 U/L (14-36); African American GFR (CKD) >90 (>60 ml/min/1.73 sqM); Albumin 2.2 g/dL (3.5-5.0); Alkaline Phosphatase 83 U/L (38-126); Anion Gap 8 mmol/L; Blood Urea Nitrogen 18 mg/dL (7-17); Calcium 8.4 mg/dL (8.4-10.2); Carbon Dioxide 18 mmol/L (22-30); Chloride 107 mmol/L (98-107); Glucose 89 mg/dL (74-99); Non-African American GFR(CKD) 82 (>60 ml/min/1.73 sqM); Potassium 4.1 mmol/L (3.5-5.1); Sodium 133 mmol/L (137-145); Total Bilirubin 0.7 mg/dL (0.2-1.3); Total Protein 5.5 g/dL (6.3-8.2)
--- NOTE | 2023-03-20 10:12 | P.PN ---
Subjective Progress Note Date: 03/20/23 Progress note 03/20/2023 Patient was seen and examined at bedside the same. Patient converted out of atrial fibrillation yesterday. Today she continues to be in sinus rhythm. His echo showed calcified bioprosthetic aortic valve with a peak gradient of more than 100 mmHg, mean gradient of around 60s. Patient also has moderate aortic regurgitation. She is hemodynamics stable History of present illness: History of present illness: This is a 72-year-old female patient Dr. Mosley a past medical history of valvular heart disease status post aortic valve replacement using bioprosthetic valve, dyslipidemia. We have been asked to evaluate the patient for weakness and elevated troponins. History is obtained from the patient and her . Patient apparently passed out while in the bathroom found on the floor. For the past couple months she has had difficulty with ambulation due to weakness can hardly walk. Her states that she was incoherent and confused yesterday. Weakness has continued and she has had workup outpatient. She was seen by Dr. Mosley in the office on 03/03 and everything seems stable at that time. She has a scheduled MRI of the brain on Friday. Patient has no previous history of atrial fibrillation. EKG sinus rhythm, telemetry atrial fibrillation Chest x-ray: COPD CAT scan of the brain and cervical spine revealed chronic white matter ischemic changes. No acute intracranial process. No acute fractures of the cervical spine. Degenerative joint changes contributed to foraminal stenosis. DDD. Echocardiogram reveals LVH with preserved systolic function. Mildly enlarged right ventricle. Bioprosthetic valve gradient seems significantly elevated. Suboptimal visualization of the aortic valve. Troponin 0.871, 0.647, 0.476. WBC 12.2, hemoglobin 9.8. AST 56, ALT 53. Sodium 134, potassium 4.4, creatinine 0.71. Home cardiac medications: Atorvastatin 40 mg at bedtime Review Of Systems: At the time of my evaluation: Constitutional: No fever, no chills. + weakness, +fatigue + lethargy. EENT: No headache. No dizziness. Lungs: No shortness of breath, cough, no sputum production. No wheezing. Cardiovascular: No chest pain, no lower extremity edema. No palpitations. No paroxysmal nocturnal dyspnea. No orthopnea. No lightheadedness or dizziness. No syncopal episodes. Abdominal: No abdominal pain. No nausea, vomiting. No diarrhea. No constipation. No bloody or tarry stools. Genitourinary: No dysuria.. No urinary retention. Musculoskeletal: No myalgias. + muscle weakness, + frequent falls. No back pain. No neck pain. Integumentary: No wounds. No rash. No unusual bruising. Neurologic: No aphasia. No facial droop. No change in mentation. No head injury. No headache. Physical examination: Gen: This is a 72-year-old female. She is resting on ER stretcher. To be in no acute distress.] VS: reviewed HEENT: Head is atraumatic, normocephalic. Pupils equal, round. Sclerae is anicteric. NECK: Supple. No JVD. . LUNGS: Clear to auscultation. No wheezes or rhonchi. No intercostal retrac tions. HEART: Irregular rate and rhythm. Systolic murmur. ABDOMEN: Soft No tenderness. EXTREMITIES: No pedal edema. No calf tenderness. NEUROLOGICAL: Patient is awake, alert and oriented x3. Assessment: New-onset if atrial fibrillation, status post spontaneous cardioversion. Atrial fibrillation is new on this admission. This is likely due to increased and her cardiac pressures from aorta stenosis and aortic regurgitation. Mixed aortic valve disease with moderate aortic regurgitation and severe aortic stenosis. Pressure half time is around 400 msec. This puts her at moderate aortic regurgitation. VTI ratio is >0.3 and AT <100 msec. this puts her in the category of high flow state and patient processes mismatch. Status post bioprosthetic aortic valve, TAVR in 2017 in [facility] Dyslipidemia Plan: Continue Eliquis 5 mg twice a day Reduce metoprolol to 25 mg twice a day due to and AR Start lisinopril 5 mg daily to reduce afterload I suspect that patient's mixed aortic valve disease needs further evaluation. She has been ordered aortic regurgitation which is contemplating to her elevated aortic gradients. Her aspiration times less than 100 ms and her DVI ratio is less than 0.3. She has combination of high flow state and Patient prosthesis mismatch Contact TAVR coordinator to have outpatient follow-up for TAVR workup Objective - Vital Signs Vital signs: Vital Signs Temp 98.5 F 03/20/23 08:35 Pulse 84 03/20/23 08:35 Resp 16 03/20/23 08:35 BP 125/81 03/20/23 08:35 Pulse Ox 94 L 03/20/23 08:35 FiO2 Intake & Output 03/19/23 03/20/23 03/20/23 18:59 06:59 18:59 Output Total 300 Balance -300 Weight 51.256 kg Output: Urine 300 Other: Voiding Method External Catheter External Catheter - Labs CBC & Chem 7: 03/20/23 09:26 03/19/23 03:28 Labs: Abnormal Lab Results - Last 24 Hours (Table) 03/19/23 03/19/23 03/20/23 Range/Units 09:42 19:34 09:26 WBC 16.8 H (3.8-10.6) k/uL RBC 3.07 L (3.80-5.40) m/uL Hgb 9.1 L (11.4-16.0) gm/dL Hct 28.4 L (34.0-46.0) % Neutrophils # 14.6 H (1.3-7.7) k/uL Lymphocytes # 0.9 L (1.0-4.8) k/uL APTT 40.6 H (22.0-30.0) sec Vitamin B12 982.0 H (200.0-944.0) pg/mL
[2023-03-20] MEDS: METOPROLOL TARTRATE 25 MG TAB PO SCH ×2 (10:42→21:21)
--- NOTE | 2023-03-20 12:17 | P.CNNES ---
History of Present Illness Consult date: 03/20/23 Requesting physician: Cayden Jacobsen Reason for Consult: confusion History of Present Illness: This is a 72-year-old woman with history of aortic valve replaced, dysplippdemia who presents for generalized weakness. Neurology is consulted for confusion. History is obtained from patient's family members ( and daughter). Seems that the patient passed out while in the bathroom and was found on the floor. According to the 4 months she is a been having shuffling with walking and he feels her walking has been unsteady as well as he feels that she's been confused. He denies of the patient has any resting tremor. No focal weakness. feels recently she is been having some visual hallucination and is seeing things that nor seen. Patient does not have any history of stroke or seizure in the past. No recent sick contacts. She denied of any headache, any focal weakness, any numbness. She denies of having any visual hallucination. Some other workup during his hospital visit consisted of: Temperature she had one temperature of 100.7F otherwise she's been afebrile. Initial white blood cells 15.0 and most recent 16.8 slightly neutrophilic. Sodium is 133, AST of 64 ALT of 55, calcium is 8.7, magnesium 1.9. Troponin is 0.871 and it's trending down. Ammonia is less than 9 Vitamin B-12 is 982 Folate is 8.0 TSH is 0.469. AST of 64 ALT 55. He did the head is reported as chronic appearing, phone paraventricular white matter ischemic type changes. No acute intracranial process. Follow-up MRI can be performed as clinically indicated CT cervical spine is reported as no acute fracture cervical spine. Degenerative on co-vertebral joint changes contributing to for maternal stenosis. Degene rative disc disease. Repeat CT of the head is reported as no acute intracranial process. Nonspecific white matter changes, likely secondary to chronic small vessel ischemic disease. I personally reviewed the CT of the head and I agree there is no acute subacute ischemia and there is no bleed. I felt the patient has chronic microvascular disease. 2-D echo was reported as left ventricular hypertrophy with preserved systolic function. Mildly enlarged right ventricle. Bioprosthetic valve gradient seems significantly elevated. Suboptimal visualization of the aortic valve. Review of Systems The positive and negative as per HPI Past Medical History Past Medical History: Cancer Additional Past Medical History / Comment(s): kidney cancer History of Any Multi-Drug Resistant Organisms: None Reported Past Surgical History: Cholecystectomy Additional Past Surgical History / Comment(s): rt kidney removal Past Anesthesia/Blood Transfusion Reactions: No Reported Reaction Past Psychological History: Anxiety, Depression Smoking Status: Never smoker Past Alcohol Use History: None Reported Past Drug Use History: None Reported - Past Family History Mother Family Medical History: Cancer Additional Family Medical History / Comment(s): Ovarian cancer Father Family Medical History: Dementia Medications and Allergies Home Medications Medication Instructions Recorded Confirmed Type Albuterol Inhaler [Ventolin Hfa 1 - 2 puff INHALATION RT-Q6H PRN 01/22/23 03/18/23 History Inhaler] Ascorbic Acid [Vitamin C] 1,000 mg PO DAILY 01/22/23 03/18/23 History Atorvastatin [Lipitor] 40 mg PO HS 01/22/23 03/18/23 History Cholecalciferol [Vitamin D3 (25 50 mcg PO DAILY 01/22/23 03/18/23 History Mcg = 1000 Iu)] Famotidine 40 mg PO HS 01/22/23 03/18/23 History Gabapentin [Neurontin] 300 mg PO TID PRN 01/22/23 03/18/23 History Multivitamins, Thera [Multivitamin 1 tab PO DAILY 01/22/23 03/18/23 History (formulary)] Omeprazole 40 mg PO AC-BRKFST 01/22/23 03/18/23 History Vitamin E (Dl,Tocopheryl Acet) 400 unit PO DAILY 01/22/23 03/18/23 History [Vitamin E (400 Iu = 180 mg)] FLUoxetine HCL [Sarafem] 20 mg PO HS 03/18/23 03/18/23 History Allergies Allergy/AdvReac Type Severity Reaction Status Date / Time ceftriaxone [From Rocephin] Allergy Rash/Hives Verified 03/18/23 21:36 Penicillins Allergy Rash/Hives Verified 03/18/23 21:36 Physical Examination - Vital Signs Vital Signs: Vital Signs Temp Pulse Pulse Resp BP BP Pulse Ox 03/20/23 08:35 98.5 F 84 16 125/81 94 L 03/20/23 04:00 98.8 F 86 16 137/75 95 03/20/23 02:00 80 16 03/20/23 00:00 100.7 F H 80 16 132/65 97 03/19/23 20:00 98.9 F 96 16 152/78 92 L 03/19/23 16:11 68 16 122/68 95 03/19/23 15:00 68 03/19/23 14:27 97.6 F 71 20 129/75 97 03/19/23 13:56 73 20 129/71 98 03/19/23 13:00 66 18 117/77 99 Intake and Output 03/19/23 03/20/23 03/20/23 22:59 06:59 14:59 Output Total 200 100 Balance -200 -100 Output: Urine 200 100 Other: Voiding Method External Catheter External Catheter External Catheter # Voids 1 # Bowel Movements 1 GENERAL: The patient is sitting in a chair and is not in acute distress. HENT: Supple neck. No nuchal rigidity. PSYCH: Flat affect. NEUROLOGICAL: Higher mental function: The patient is awake, alert, oriented to self, place and correctly stated the year but did not know month. She has flat affect and somewhat slow responding. Is following simple commands. Was able to name objects correctly (pen, watch, cup). No aphasia or neglect. Cranial nerves: The pupils are round, equal and reactive to light. Visual gaytan are full to confrontation throughout. Extraocular movement is intact no nystagmus is noted. Facial sensation is normal to touch throughout. The facial strength is normal throughout. Hearing is moderately decreased bilaterally to hand rub. Tongue is midline and moved [id number] without any difficulty. No dysarthria is noted. Shoulder shrug is normal bilaterally. Motor: The strength is 5 over 5 throughout. Normal tone and bulk. Cerebellum: Normal finger to nose bilaterally. Sensation: Sensation is normal to touch throughout. Reflexes (right/left): 2+ throughout. Plantars are mute bilaterally. Results - Laboratory Findings CBC and BMP: 03/20/23 09:26 03/20/23 09:26 Abnormal Lab Findings: Abnormal Labs 03/18/23 03/18/23 03/18/23 18:40 18:40 18:40 WBC 15.0 H RBC 3.23 L Hgb 9.6 L D Hct 29.7 L Neutrophils # 13.5 H Lymphocytes # 0.5 L APTT 20.3 L Sodium 133 L Carbon Dioxide BUN Glucose 178 H AST 64 H ALT 55 H Troponin I Total Protein Albumin 2.6 L Vitamin B12 03/18/23 03/19/23 03/19/23 18:40 00:25 03:28 WBC RBC Hgb Hct Neutrophils # Lymphocytes # APTT Sodium Carbon Dioxide BUN Glucose AST ALT Troponin I 0.871 H* 0.647 H* 0.476 H* Total Protein Albumin Vitamin B12 03/19/23 03/19/23 03/19/23 03:28 03:28 03:28 WBC 12.2 H RBC 3.22 L Hgb 9.8 L Hct 29.9 L Neutrophils # 9.5 H Lymphocytes # APTT 41.7 H Sodium 134 L Carbon Dioxide BUN Glucose 107 H AST 56 H ALT 53 H Troponin I Total Protein 5.9 L Albumin 2.4 L Vitamin B12 03/19/23 03/19/23 03/20/23 09:42 19:34 09:26 WBC 16.8 H RBC 3.07 L Hgb 9.1 L Hct 28.4 L Neutrophils # 14.6 H Lymphocytes # 0.9 L APTT 40.6 H Sodium Carbon Dioxide BUN Glucose AST ALT Troponin I Total Protein Albumin Vitamin B12 982.0 H 03/20/23 09:26 WBC RBC Hgb Hct Neutrophils # Lymphocytes # APTT Sodium 133 L Carbon Dioxide 18 L BUN 18 H Glucose AST 39 H ALT 40 H Troponin I Total Protein 5.5 L Albumin 2.2 L Vitamin B12 Assessment and Plan Assessment: This is a 72-year-old woman with history of aortic valve replacement who presented emergency department as since the patient was found down passed out in the bathroom on the floor she's having difficulty with ambulation and feels she shuffling and she's been having confusion with recent visual hallucination. Her troponin was elevated in our facility and she had too CT of the heads were negative for any acute subacute ischemia or any brain bleed or mass. She had the summer leukocytosis with one time of a fever which was low grade fever. Per cardio team, they state that the patient has new onset atrial fibrillation Syncopal episode seems due to underlying cardiac in origin especially with a new onset atrial fibrillation Encephalopathy of unknown etiology patient had leukocytosis with one time fever rule out underlying infection. Unknown exact source of infection also mild component of metabolic encephalopathy Unsteady gait and she shuffling according to for last couple months unknown exact etiology New onset atrial fibrillation Elevated troponin Slightly elevated liver function test History of aortic valve replacement with by prostatic valve Dyslipidemia Plan: I ordered MRI of brain and unsure if aortic valve prosthetic aren't MRI com patible I ordered a routine EEG Urine analysis is ordered by the primary team is pending Recommend blood cultures Consulted ID team for her leukocytosis and low-grade fever. If unknown source consider lumbar puncture Cardiology is on board We'll defer the rest of the medical management to primary team The plan was discussed with the patient's and daughter who are bedside Thank you consultation Time with Patient: Greater than 30
--- NOTE | 2023-03-20 12:21 | XR ---
EXAMINATION TYPE: XR chest 1V DATE OF EXAM: 03/20/2023 HISTORY: Shortness of breath. COMPARISON: 03/18/2023 TECHNIQUE: Single view of the chest is submitted. FINDINGS: Demonstrated are scattered senescent parenchymal change. There is no evidence for focal infiltrate. The heart is stable. Hilar and mediastinal structures are within normal limits. Degenerative changes are seen of the dorsal spine. IMPRESSION: 1. Chronic changes without evidence for acute pulmonary disease.
[2023-03-20 12:25] LABS: Appearance,Urine Turbid (Clear); Bilirubin,Urine Negative (Negative); Blood,Urine Large (Negative); Calcium Oxalate Crystals,Urine Occasional /hpf; Color,Urine Dark Brown; Glucose,Urine (UA) Negative (Negative); Ketones,Urine 1+ (Negative); Leukocyte Esterase,Urine Negative (Negative); Nitrite,Urine Negative (Negative); Protein,Urine 4+ (Negative); RBC,Urine 57 /hpf (0-5); Squamous Epithelial Cell,Urine 3 /hpf (0-4)
[2023-03-20] MEDS: lisinopriL 5 MG TAB PO SCH (12:34)
[2023-03-20 12:42] LABS: Specific Gravity,Urine >1.050 (1.001-1.035)
[2023-03-20 14:26] LABS: Reticulocyte % 2.7 % (0.5-2.0)
[2023-03-20 14:42] LABS: C Reactive Protein 23.6 mg/dL (<1.0)
[2023-03-20] MEDS: ATORVASTATIN 40 MG TAB PO SCH (21:21)
[2023-03-20] MEDS: FLUoxetine HCL 20 MG CAP PO SCH (21:21)
[2023-03-20] MEDS ORDERED: LEVOFLOXACIN 500 MG TAB PO SCH (23:00)
--- NOTE | 2023-03-20 23:33 | P.CONS ---
History of Present Illness - Reason for Consult Consult date: 03/20/23 Fever with leukocytosis Requesting physician: Adrian Bangura - Chief Complaint Fall and weakness x few days - History of Present Illness Patient is a 72-year-old female with a past medical history significant for kidney cancer status post removal of the right kidney anxiety depression presenting to the hospital 2 days ago for evaluation of a fall apparently the patient was carrying too much of the staff tripped and fell down patient denies hitting her head or losing any consciousness patient apparently has been getting weak for the last few weeks and per the patient had mechanical fall. No clear history of any fever at home patient denies having any headache no nausea no vomiting no abdominal pain no diarrhea and no urinary symptoms patient on presentation to the hospital was afebrile she did spike low- grade fever 100.7 at midnight patient also have a elevated white count 16.8 with a left shift creatinine 0.74 urine was negative troponin was mildly elevated patient did have a chest x-ray no acute cardiopulmonary process head cervical spine CT did not show any bleed or acute findings patient did have echocardiogram LVH with preserved systolic function bioprosthetic valve gradients seem significantly elevated no mention of any vegetation infectious was consulted today regarding fever leukocytosis and confusion MRI of the brain has been ordered Review of Systems Positive point and negatives has been mentioned in the HPI, complete review of systems was performed and all other systems are negative Past Medical History Past Medical History: Cancer Additional Past Medical History / Comment(s): kidney cancer History of Any Multi-Drug Resistant Organisms: None Reported Past Surgical History: Cholecystectomy Additional Past Surgical History / Comment(s): rt kidney removal Past Anesthesia/Blood Transfusion Reactions: No Reported Reaction Past Psychological History: Anxiety, Depression Smoking Status: Never smoker Past Alcohol Use History: None Reported Past Drug Use History: None Reported - Past Family History Mother Family Medical History: Cancer Additional Family Medical History / Comment(s): Ovarian cancer Father Family Medical History: Dementia Medications and Allergies Home Medications Medication Instructions Recorded Confirmed Type Albuterol Inhaler [Ventolin Hfa 1 - 2 puff INHALATION RT-Q6H PRN 01/22/23 03/18/23 History Inhaler] Ascorbic Acid [Vitamin C] 1,000 mg PO DAILY 01/22/23 03/18/23 History Atorvastatin [Lipitor] 40 mg PO HS 01/22/23 03/18/23 History Cholecalciferol [Vitamin D3 (25 50 mcg PO DAILY 01/22/23 03/18/23 History Mcg = 1000 Iu)] Famotidine 40 mg PO HS 01/22/23 03/18/23 History Gabapentin [Neurontin] 300 mg PO TID PRN 01/22/23 03/18/23 History Multivitamins, Thera [Multivitamin 1 tab PO DAILY 01/22/23 03/18/23 History (formulary)] Omeprazole 40 mg PO AC-BRKFST 01/22/23 03/18/23 History Vitamin E (Dl,Tocopheryl Acet) 400 unit PO DAILY 01/22/23 03/18/23 History [Vitamin E (400 Iu = 180 mg)] FLUoxetine HCL [Sarafem] 20 mg PO HS 03/18/23 03/18/23 History Allergies Allergy/AdvReac Type Severity Reaction Status Date / Time ceftriaxone [From Rocephin] Allergy Rash/Hives Verified 03/18/23 21:36 Penicillins Allergy Rash/Hives Verified 03/18/23 21:36 Physical Exam Vitals: Vital Signs Temp Pulse Pulse Resp BP BP Pulse Ox 03/20/23 08:35 98.5 F 84 16 125/81 94 L 03/20/23 04:00 98.8 F 86 16 137/75 95 03/20/23 02:00 80 16 03/20/23 00:00 100.7 F H 80 16 132/65 97 03/19/23 20:00 98.9 F 96 16 152/78 92 L 03/19/23 16:11 68 16 122/68 95 03/19/23 15:00 68 03/19/23 14:27 97.6 F 71 20 129/75 97 03/19/23 13:56 73 20 129/71 98 Intake and Output 03/19/23 03/20/23 03/20/23 22:59 06:59 14:59 Output Total 200 100 Balance -200 -100 Output: Urine 200 100 Other: Voiding Method External Catheter External Catheter External Catheter # Voids 1 # Bowel Movements 1 GENERAL DESCRIPTION: Middle-aged male lying in bed, no distress. No tachypnea or accessory muscle of respiration use. HEENT: Shows Pallor , no scleral icterus. Oral mucous membrane is dry. No pharyngeal erythema or thrush NECK: Trachea central, no thyromegaly. LUNGS: Unlabored breathing. Clear to auscultation anteriorly. No wheeze or crackle. HEART: S1, S2, regular rate and rhythm. Systolic murmur ABDOMEN: Soft, no tenderness , guarding or rigidity, no organomegaly EXTREMITIES: No edema of feet. SKIN: No rash, no masses palpable. NEUROLOGICAL: The patient is awake, alert, oriented x3, mood and affect normal. Results CBC & Chem 7: 03/24/23 08:29 03/24/23 08:29 Labs: Abnormal Lab Results - Last 24 Hours (Table) 03/19/23 03/20/23 03/20/23 Range/Units 19:34 09:04 09:26 WBC 16.8 H (3.8-10.6) k/uL RBC 3.07 L (3.80-5.40) m/uL Hgb 9.1 L (11.4-16.0) gm/dL Hct 28.4 L (34.0-46.0) % Neutrophils # 14.6 H (1.3-7.7) k/uL Lymphocytes # 0.9 L (1.0-4.8) k/uL Sodium (137-145) mmol/L Carbon Dioxide (22-30) mmol/L BUN (7-17) mg/dL AST (14-36) U/L ALT (4-34) U/L Total Protein (6.3-8.2) g/dL Albumin (3.5-5.0) g/dL Vitamin B12 982.0 H (200.0-944.0) pg/mL Urine Appearance Turbid H (Clear) Ur Specific [place] >1.050 H (1.001-1.035) Urine Protein 4+ H (Negative) Urine Ketones 1+ H (Negative) Urine Blood Large H (Negative) Urine RBC 57 H (0-5) /hpf Calcium Oxalate Crystal Occasional H (None) /hpf 03/20/23 Range/Units 09:26 WBC (3.8-10.6) k/uL RBC (3.80-5.40) m/uL Hgb (11.4-16.0) gm/dL Hct (34.0-46.0) % Neutrophils # (1.3-7.7) k/uL Lymphocytes # (1.0-4.8) k/uL Sodium 133 L (137-145) mmol/L Carbon Dioxide 18 L (22-30) mmol/L BUN 18 H (7-17) mg/dL AST 39 H (14-36) U/L ALT 40 H (4-34) U/L Total Protein 5.5 L (6.3-8.2) g/dL Albumin 2.2 L (3.5-5.0) g/dL Vitamin B12 (200.0-944.0) pg/mL Urine Appearance (Clear) Ur Specific [place] (1.001-1.035) Urine Protein (Negative) Urine Ketones (Negative) Urine Blood (Negative) Urine RBC (0-5) /hpf Calcium Oxalate Crystal (None) /hpf Assessment and Plan (1) Fever Status: Acute Code(s): R50.9 - FEVER, UNSPECIFIED SNOMED Code(s): 440518587 (2) Allergy to multiple antibiotics Status: Acute Code(s): Z88.1 - ALLERGY STATUS TO OTHER ANTIBIOTIC AGENTS SNOMED Code(s): 575278106 Plan: 1patient with a low-grade fever in this patient presented to hospital with a fall and weakness and apparently has becoming more forgetful over the last few weeks some confusion has been noticed patient initial work-up including a UA chest x-ray has been negative no evidence of any cellulitis or joint swelling no neck rigidity was noticed 2-patient who do have penicillin and cephalosporin allergy that will limit the number of antibiotics safe to use 3-we will obtain a CT of abdominal pelvis with oral contrast to rule out any intra-abdominal source, blood culture has been ordered we will also check a CRP and a procalcitonin level 4-we will also request for CSF examination for which IR has been consulted fluid will be sent for cell count differential Gram stain protein glucose and viral PCR We will follow on clinical condition and cultures to further adjust medication if needed Thank you for this consultation we will follow the patient along with you Dictation was produced using [employer] software. please excuse any grammatical, word or spelling errors. Time with Patient: Greater than 30
--- NOTE | 2023-03-21 02:28 | EEG ---
ELECTROENCEPHALOGRAM REPORT CLINICAL HISTORY: This is a 72-year-old woman with altered mental status. The video EEG is obtained to evaluate for seizure epileptiform activity. RELEVANT MEDICATIONS: Gabapentin. EEG TYPE: A routine 21-channel EEG with video using the 10/20 electrode placement system. DESCRIPTION: Wakefulness is only obtained. During awake state, the background consists of low-to- moderate voltage of 5.5 to 6.5 hertz activity. There was no physiological stage 2 sleep architecture. There is no focal slowing. Interictal and ictal is none. ACTIVATION PROCEDURE: Photic stimulation was aborted at 14 hertz since the patient could not tolerate and was having pain, but there was no photic driving with the limited photic stimulation as well as no abnormality noted during the limited photic stimulation. Hyperventilation is not performed. CLINICAL INTERPRETATION: This is an abnormal routine EEG. The background slowing is suggestive of mild-to- moderate encephalopathy. There is no focal slowing, epileptiform discharge, or seizure on the EEG. Clinical correlation is recommended. MMDENISE / GEMININ: [id number] /
[2023-03-21 02:41] LABS: % Iron Saturation 12.24 (12.00-45.00)
[2023-03-21] MEDS: PANTOPRAZOLE 40 MG TABLET PO SCH (05:55)
[2023-03-21] MEDS: APIXABAN 5 MG TAB PO SCH (07:40)
[2023-03-21] MEDS: IOPAMIDOL CONTRAST (ORAL USE) VIAL PO PRN ×2 (07:59→09:05)
[2023-03-21] MEDS: MULTIVITAMINS, THERA 1 EACH TAB PO SCH (08:03)
[2023-03-21] MEDS: CHOLECALCIFEROL 25 MCG (1000 IU) TABLET PO SCH (08:03)
[2023-03-21] MEDS: VITAMIN E (DL,TOCOPHERYL ACET) 400 UNIT (180 MG) CAP PO SCH (08:03)
[2023-03-21] MEDS: METOPROLOL TARTRATE 25 MG TAB PO SCH ×2 (08:03→21:02)
[2023-03-21] MEDS: SODIUM CHLORIDE 0.9% 1,000 ML IV SCH ×2 (08:03→16:33)
[2023-03-21] MEDS: lisinopriL 5 MG TAB PO SCH (09:08)
[2023-03-21] MEDS: ASCORBIC ACID 500 MG TAB PO SCH (10:00)
[2023-03-21 10:29] LABS: Basophils % (A) 0 %; Eosinophils # (A) 0.1 k/uL (0-0.7); Eosinophils % (A) 1 %; HCT 28.3 % (34.0-46.0); Hypochromasia Moderate; Lymphocytes # (A) 0.8 k/uL (1.0-4.8); Lymphocytes % (A) 5 %; MCH 29.9 pg (25.0-35.0); MCV 93.6 fL (80.0-100.0); Mean Platelet Volume 7.3; Monocytes # (A) 0.7 k/uL (0-1.0); Monocytes % (A) 4 %; Neutrophils # (A) 13.6 k/uL (1.3-7.7); Neutrophils % (A) 87 %; Platelet Count 404 k/uL (150-450); RBC 3.02 m/uL (3.80-5.40); WBC 15.6 k/uL (3.8-10.6)
[2023-03-21 10:44] LABS: ALT 39 U/L (4-34); AST 48 U/L (14-36); African American GFR (CKD) >90 (>60 ml/min/1.73 sqM); Albumin 2.2 g/dL (3.5-5.0); Alkaline Phosphatase 83 U/L (38-126); Anion Gap 5 mmol/L; Blood Urea Nitrogen 12 mg/dL (7-17); Calcium 8.3 mg/dL (8.4-10.2); Carbon Dioxide 20 mmol/L (22-30); Chloride 108 mmol/L (98-107); Glucose 115 mg/dL (74-99); Non-African American GFR(CKD) 88 (>60 ml/min/1.73 sqM); Potassium 4.2 mmol/L (3.5-5.1); Sodium 133 mmol/L (137-145); Total Bilirubin 0.5 mg/dL (0.2-1.3); Total Protein 5.6 g/dL (6.3-8.2)
[2023-03-21] MEDS ORDERED: VANCOMYCIN IV PER PHARMACY 1 EACH MISC MISCELLANE PRN (10:49)
[2023-03-21] MEDS ORDERED: VANCOMYCIN 1,000 MG in SODIUM CHLORIDE 0.9% 250 ML IVPB ONE (11:30)
[2023-03-21] MEDS: LORazepam 2 MG/ML INJ IV PRN (11:48)
--- NOTE | 2023-03-21 12:58 | P.PN ---
Subjective Progress Note Date: 03/21/23 I am following-up with patient and she is accompanied with her and rest of family members. She denies of any headache, nausea, vomiting. She feels she is doing better. Her family members feels she is doing better and she is less confused today. Objective - Vital Signs Vital signs: Vital Signs Temp 98.0 F 03/21/23 08:00 Pulse 74 03/21/23 11: Resp 17 03/21/23 11:23 BP 144/73 03/21/23 11:23 Pulse Ox 99 03/21/23 11:23 FiO2 Intake & Output 03/20/23 03/21/23 03/21/23 18:59 06:59 18:59 Intake Total 1074 540 Output Total 100 Balance 974 540 Intake: Intake, IV Titration 630 Amount Sodium Chloride 0.9% 1, 130 000 ml @ 130 mls/hr IV . Q7H42M MARGARITA Rx#:[id number] Sodium Chloride 0.9% 500 500 ml 500 ml @ 999 mls/hr IV .Q31M ONE Rx#:[id number] Oral 444 540 Output: Urine 100 Other: Voiding Method External Catheter External Catheter Diaper External Catheter # Voids 1 2 1 # Bowel Movements 1 2 - Exam GENERAL: The patient is sitting in a chair and is not in acute distress. HENT: Supple neck. No nuchal rigidity. PSYCH: Flat affect. NEUROLOGICAL: Higher mental function: The patient is awake, alert, oriented to self, place and time. She has flat affect. Is following simple commands. Was able to name objects correctly (pen, watch, cup). No aphasia or neglect. Cranial nerves: The pupils are round, equal and reactive to light. Visual gaytan are full to confrontation throughout. Extraocular movement is intact no nystagmus is noted. Facial sensation is normal to touch throughout. The facial strength is normal throughout. Hearing is moderately decreased bilaterally to hand rub. Tongue is midline and moved [id number] without any difficulty. No dysarthria is noted. Shoulder shrug is normal bilaterally. Motor: The strength is 5 over 5 throughout. Normal tone and bulk. Cerebellum: Normal finger to nose bilaterally. Sensation: Sensation is normal to touch throughout. Some other workup during his hospital visit consisted of: Temperature she had one temperature of 100.7F otherwise she's been afebrile. Initial white blood cells 15.0 and most recent 16.8 slightly neutrophilic. Sodium is 133, AST of 64 ALT of 55, calcium is 8.7, magnesium 1.9. Troponin is 0.871 and it's trending down. Ammonia is less than 9 Vitamin B-12 is 982 Folate is 8.0 TSH is 0.469. AST of 64 ALT 55. He did the head is reported as chronic appearing, phone paraventricular white matter ischemic type changes. No acute intracranial process. Follow-up MRI can be performed as clinically indicated CT cervical spine is reported as no acute fracture cervical spine. Degenerative on co-vertebral joint changes contributing to for maternal stenosis. Degenerative disc disease. Repeat CT of the head is reported as no acute intracranial process. Nonspecific white matter changes, likely secondary to chronic small vessel ischemic disease. I personally reviewed the CT of the head and I agree there is no acute subacute ischemia and there is no bleed. I felt the patient has chronic microvascular disease. 2-D echo was reported as left ventricular hypertrophy with preserved systolic function. Mildly enlarged right ventricle. Bioprosthetic valve gradient seems significantly elevated. Suboptimal visualization of the aortic valve. Routine EEG: Is abnormal. The background slowing is suggestive of mild to moderate encephalopathy. There is not focal slowing, epileptiform discharges or seizure. - Labs CBC & Chem 7: 03/21/23 10:06 03/21/23 10:06 Labs: Abnormal Lab Results - Last 24 Hours (Table) 03/20/23 03/20/23 03/20/23 Range/Units 13:19 13:19 13:19 WBC (3.8-10.6) k/uL RBC (3.80-5.40) m/uL Hgb (11.4-16.0) gm/dL Hct (34.0-46.0) % Neutrophils # (1.3-7.7) k/uL Lymphocytes # (1.0-4.8) k/uL Retic Count 2.7 H (0.5-2.0) % Sodium (137-145) mmol/L Chloride (98-107) mmol/L Carbon Dioxide (22-30) mmol/L Glucose (74-99) mg/dL Calcium (8.4-10.2) mg/dL Iron 24 L (50-170) UG/DL TIBC 196 L (228-460) UG/DL Transferrin 140.0 L (204.0-354.0) mg/dL Ferritin 731.0 H (10.0-291.0) ng/mL AST (14-36) U/L ALT (4-34) U/L C-Reactive Protein 23.6 H (<1.0) mg/dL Total Protein (6.3-8.2) g/dL Albumin (3.5-5.0) g/dL Procalcitonin 0.42 H (0.02-0.09) ng/mL 03/21/23 03/21/23 Range/Units 10:06 10:06 WBC 15.6 H (3.8-10.6) k/uL RBC 3.02 L (3.80-5.40) m/uL Hgb 9.0 L (11.4-16.0) gm/dL Hct 28.3 L (34.0-46.0) % Neutrophils # 13.6 H (1.3-7.7) k/uL Lymphocytes # 0.8 L (1.0-4.8) k/uL Retic Count (0.5-2.0) % Sodium 133 L (137-145) mmol/L Chloride 108 H (98-107) mmol/L Carbon Dioxide 20 L (22-30) mmol/L Glucose 115 H (74-99) mg/dL Calcium 8.3 L (8.4-10.2) mg/dL Iron (50-170) UG/DL TIBC (228-460) UG/DL Transferrin (204.0-354.0) mg/dL Ferritin (10.0-291.0) ng/mL AST 48 H (14-36) U/L ALT 39 H (4-34) U/L C-Reactive Protein (<1.0) mg/dL Total Protein 5.6 L (6.3-8.2) g/dL Albumin 2.2 L (3.5-5.0) g/dL Procalcitonin (0.02-0.09) ng/mL Microbiology - Last 24 Hours (Table) 03/20/23 13:19 Blood Culture Gram Stain - Preliminary Blood 03/20/23 13:19 Blood Culture Gram Stain - Preliminary Blood Assessment and Plan Assessment: This is a 72-year-old woman with history of aortic valve replacement who presented emergency department as since the patient was found down passed out in the bathroom on the floor she's having difficulty with ambulation and feels she shuffling and she's been having confusion with recent visual hallucination. Her troponin was elevated in our facility and she had too CT of the heads were negative for any acute subacute ischemia or any brain bleed or ma ss. She had the summer leukocytosis with one time of a fever which was low grade fever. Per cardio team, they state that the patient has new onset atrial fibrillation Syncopal episode seems due to underlying cardiac in origin especially with a new onset atrial fibrillation Encephalopathy of unknown etiology patient had leukocytosis with one time fever rule out underlying infection. Unknown exact source of infection also mild component of metabolic encephalopathy--EEG is negative for seizure or discharges. Mentation improved Unsteady gait and she shuffling according to for last couple months unknown exact etiology New onset atrial fibrillation Elevated troponin Slightly elevated liver function test History of aortic valve replacement with by prostatic valve Dyslipidemia Plan: Pending MRI of brain and unsure if aortic valve prosthetic aren't MRI compatible Blood culture is positive for gram positive cocci. I.D. is on board and ordered CSF study, CT abdomen. Cardiology is on board and it seems cardiothoracic team is on board because of leaky valves. We'll defer the rest of the medical management to primary team The plan was discussed with the patient's and [id number]. Will continue to follow. Dr. Flores will start neurology service tomorrow A.M. then Dr. Rodarte will resume this Friday A.M. Time with Patient: Less than 30
--- NOTE | 2023-03-21 12:59 | CT ---
EXAMINATION TYPE: CT abdomen pelvis w con DATE OF EXAM: 03/21/2023 COMPARISON: 11/03/2012 HISTORY: 72-year-old female Fever TECHNIQUE: Contiguous axial scanning of the abdomen and pelvis following administration of 100 ml Iso leeanne 300 IV contrast. Delayed images through the kidneys and coronal/sagittal reconstructions perform ed. CT DLP: 597.1 mGycm Automated exposure control for dose reduction was used. FINDINGS: Heart borderline in size. No sizable pericardial effusion. Suspect prosthetic aortic valve. There are small bilateral pleural effusions. Septal lines in the lower lungs and adjacent patchy ate lectasis. Tiny hiatal hernia. No focal liver lesion. Portal venous system is patent. No biliary ductal dilatation. Cholecystectomy clips. Adrenal glands, spleen, and atrophic pancreas show no gross abnormality. Right kidney surgically absent. The left kidney shows very subtle patchy areas of hypoenhancement on the delayed kidney images. No hy dronephrosis. No dilated small bowel, free fluid, or free air. No mesenteric or retroperitoneal lymphadenopathy. Normal appendix. No significant stool burden. Oral contrast progressed to the rectum. Mild circumfere ntial wall thickening distal sigmoid colon likely due to nondistention. Moderate circumferential bladder wall thickening. Uterus appears anteverted but may be retroflexed. Pelvic phleboliths. Ovaries not well delineated pro bably due to small, postmenopausal state. No abnormal fluid collection in the pelvis. There appears to be some inflammatory changes at the left femoral canal upper thigh. There is focal c lot noted within the left DIRECTOR OF BANDS bifurcation extending into the proximal PFA and SFA. Severe stenosis fo r a span of approximately 3 cm results. Refer to axial images 73 through 79. IMPRESSION: 1. SUBTLE PATCHY AREAS OF HYPOENHANCEMENT WITHIN THE LEFT KIDNEY ONLY SEEN ON THE DELAYED KIDNEY IMAG ES. CORRELATE TO EXCLUDE THE POSSIBILITY OF UNDERLYING PYELONEPHRITIS. 2. MODERATE BLADDER WALL THICKENING MAY BE CHRONIC FOR THE PATIENT OR COULD REPRESENT CYSTITIS. 3. 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 APPROXIMATE LY 3 CM SPAN OF SEVERE STENOSIS. SOME ASSOCIATED LOCALIZED INFLAMMATION SUGGESTS ACUTE THROMBOSIS OR THROMBOPHLEBITIS. FINDINGS SENT TO DR. ST BY PERFECT SERVE TEXT AT 12:55 PM. 4. SMALL BILATERAL PLEURAL EFFUSIONS. SEPTAL LINES IN THE LOWER LUNGS MAY REFLECT PULMONARY VASCULAR CONGESTION.
[2023-03-21] MEDS ORDERED: LORazepam 2 MG/ML INJ IV STA (14:21)
--- NOTE | 2023-03-21 14:55 | P.GSCN ---
History of Present Illness Consult date: 03/21/23 Reason for Consult: Arterial thrombus Requesting physician: Pillo Villar History of present illness: This is a pleasant 72-year-old female who presented to the emergency department 3 days ago with generalized weakness, fall and confusion. 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 Apparently patient was found on the bathroom floor. Patient's states for the last couple months she has had increased weakness with gait disturbance. States that she just shuffles to walk. She was admitted for further evaluation was noted to be in atrial fibrillation. She had low-grade fever with a max temp of 100.7, and has positive blood cultures for e. faecalis. Infectious disease is following and did a CT of the abdomen and pelvis with contrast which reported arterial thrombosis in the distal left [employer]AT[employer] SUBMISSIONS SPECIALIST extending into the proximal left SFA and PFA. Vascular surgery was consulted for the above. Patient denies any abdominal pain, no pain in her lower extremities. She denies any shortness of breath or chest pain. States no pain with ambulating. She has good range of motion. No history of clotting in the past. On admission she was started on a heparin drip for new onset atrial fibrillation and has since been transitioned to Eliquis 5mg BID. She is afebrile currently. No nausea or vomiting. She has been tolerating a regular diet without any complaints. Cardiology is following as well as cardiothoracic for workup for possible TAVR. Review of Systems A 14 point review systems was completed all pertinent positives and negatives as stated in the HPI. Past Medical History Past Medical History: Cancer Additional Past Medical History / Comment(s): kidney cancer History of Any Multi-Drug Resistant Organisms: None Reported Past Surgical History: Cholecystectomy Additional Past Surgical History / Comment(s): rt kidney removal Past Anesthesia/Blood Transfusion Reactions: No Reported Reaction Past Psychological History: Anxiety, Depression Smoking Status: Never smoker Past Alcohol Use History: None Reported Past Drug Use History: None Reported - Past Family History Mother Family Medical History: Cancer Additional Family Medical History / Comment(s): Ovarian cancer Father Family Medical History: Dementia Medications and Allergies Home Medications Medication Instructions Recorded Confirmed Type Albuterol Inhaler [Ventolin Hfa 1 - 2 puff INHALATION RT-Q6H PRN 01/22/23 03/18/23 History Inhaler] Ascorbic Acid [Vitamin C] 1,000 mg PO DAILY 01/22/23 03/18/23 History Atorvastatin [Lipitor] 40 mg PO HS 01/22/23 03/18/23 History Cholecalciferol [Vitamin D3 (25 50 mcg PO DAILY 01/22/23 03/18/23 History Mcg = 1000 Iu)] Famotidine 40 mg PO HS 01/22/23 03/18/23 History Gabapentin [Neurontin] 300 mg PO TID PRN 01/22/23 03/18/23 History Multivitamins, Thera [Multivitamin 1 tab PO DAILY 01/22/23 03/18/23 History (formulary)] Omeprazole 40 mg PO AC-BRKFST 01/22/23 03/18/23 History Vitamin E (Dl,Tocopheryl Acet) 400 unit PO DAILY 01/22/23 03/18/23 History [Vitamin E (400 Iu = 180 mg)] FLUoxetine HCL [Sarafem] 20 mg PO HS 03/18/23 03/18/23 History Allergies Allergy/AdvReac Type Severity Reaction Status Date / Time ceftriaxone [From Rocephin] Allergy Rash/Hives Verified 03/18/23 21:36 Penicillins Allergy Rash/Hives Verified 03/18/23 21:36 Surgical - Exam Vital Signs Temp Pulse Resp BP Pulse Ox 98.2 F 104 H 18 110/60 99 03/18/23 18:02 03/18/23 18:02 03/18/23 18:02 03/18/23 18:02 03/18/23 18:02 General appearance: The patient is alert, oriented, appears in no acute distress. HET: Head is normocephalic and atraumatic. Pupils are equal and reactive. Neck: Supple. Heart: Irregular. Systolic murmur. Lungs: Equal expansion, normal respiratory effort. Abdomen: Soft, nontender, nondistended. Extremities: Normal skin color and turgor. No edema. Bilateral palpable femoral pulses. Faint right PT and DP felt. Doppler signals present. Left nonpalpable DP PT pulses. PT signal present. Neurological: No focal deficits noted. Results CT abdomen and pelvis with contrast. Subtle patchy areas of hypo-enhancement within the left kidney only seen on the delayed kidney images. Correlate to exclude the possibility of underlying pyelonephritis. Moderate bladder wall thickening may be chronic for the patient or could represent cystitis. Note arterial thrombosis distal left [employer] SPECIALIST extending into the proximal left SFA and PFA. Approximately 3 cm and severe stenosis. Some associated localized inflammation suggest acute thrombosis or thrombophlebitis. Small bilateral pleural effusions. Septal lines in the lower lungs may reflect pulmonary vascul ar congestion. - Labs 03/21/23 10:06 03/21/23 10:06 Abnormal Lab Results - Last 24 Hours (Table) 03/20/23 03/20/23 03/21/23 Range/Units 13:19 13:19 10:06 WBC 15.6 H (3.8-10.6) k/uL RBC 3.02 L (3.80-5.40) m/uL Hgb 9.0 L (11.4-16.0) gm/dL Hct 28.3 L (34.0-46.0) % Neutrophils # 13.6 H (1.3-7.7) k/uL Lymphocytes # 0.8 L (1.0-4.8) k/uL Sodium (137-145) mmol/L Chloride (98-107) mmol/L Carbon Dioxide (22-30) mmol/L Glucose (74-99) mg/dL Calcium (8.4-10.2) mg/dL Iron 24 L (50-170) UG/DL TIBC 196 L (228-460) UG/DL Transferrin 140.0 L (204.0-354.0) mg/dL Ferritin 731.0 H (10.0-291.0) ng/mL AST (14-36) U/L ALT (4-34) U/L C-Reactive Protein 23.6 H (<1.0) mg/dL Total Protein (6.3-8.2) g/dL Albumin (3.5-5.0) g/dL Procalcitonin 0.42 H (0.02-0.09) ng/mL 03/21/23 Range/Units 10:06 WBC (3.8-10.6) k/uL RBC (3.80-5.40) m/uL Hgb (11.4-16.0) gm/dL Hct (34.0-46.0) % Neutrophils # (1.3-7.7) k/uL Lymphocytes # (1.0-4.8) k/uL Sodium 133 L (137-145) mmol/L Chloride 108 H (98-107) mmol/L Carbon Dioxide 20 L (22-30) mmol/L Glucose 115 H (74-99) mg/dL Calcium 8.3 L (8.4-10.2) mg/dL Iron (50-170) UG/DL TIBC (228-460) UG/DL Transferrin (204.0-354.0) mg/dL Ferritin (10.0-291.0) ng/mL AST 48 H (14-36) U/L ALT 39 H (4-34) U/L C-Reactive Protein (<1.0) mg/dL Total Protein 5.6 L (6.3-8.2) g/dL Albumin 2.2 L (3.5-5.0) g/dL Procalcitonin (0.02-0.09) ng/mL Microbiology - Last 24 Hours (Table) 03/20/23 13:19 Blood Culture Gram Stain - Preliminary Blood 03/20/23 13:19 Blood Culture Gram Stain - Preliminary Blood Diabetes panel 03/21/23 Range/Units 10:06 Sodium 133 L (137-145) mmol/L Potassium 4.2 (3.5-5.1) mmol/L Chloride 108 H (98-107) mmol/L Carbon Dioxide 20 L (22-30) mmol/L BUN 12 (7-17) mg/dL Creatinine 0.67 (0.52-1.04) mg/dL Glucose 115 H (74-99) mg/dL Calcium 8.3 L (8.4-10.2) mg/dL AST 48 H (14-36) U/L ALT 39 H (4-34) U/L Alkaline Phosphatase 83 (38-126) U/L Total Protein 5.6 L (6.3-8.2) g/dL Albumin 2.2 L (3.5-5.0) g/dL Calcium panel 03/21/23 Range/Units 10:06 Calcium 8.3 L (8.4-10.2) mg/dL Albumin 2.2 L (3.5-5.0) g/dL Pituitary panel 03/21/23 Range/Units 10:06 Sodium 133 L (137-145) mmol/L Potassium 4.2 (3.5-5.1) mmol/L Chloride 108 H (98-107) mmol/L Carbon Dioxide 20 L (22-30) mmol/L BUN 12 (7-17) mg/dL Creatinine 0.67 (0.52-1.04) mg/dL Glucose 115 H (74-99) mg/dL Calcium 8.3 L (8.4-10.2) mg/dL Adrenal panel 03/21/23 Range/Units 10:06 Sodium 133 L (137-145) mmol/L Potassium 4.2 (3.5-5.1) mmol/L Chloride 108 H (98-107) mmol/L Carbon Dioxide 20 L (22-30) mmol/L BUN 12 (7-17) mg/dL Creatinine 0.67 (0.52-1.04) mg/dL Glucose 115 H (74-99) mg/dL Calcium 8.3 L (8.4-10.2) mg/dL Total Bilirubin 0.5 (0.2-1.3) mg/dL AST 48 H (14-36) U/L ALT 39 H (4-34) U/L Alkaline Phosphatase 83 (38-126) U/L Total Protein 5.6 L (6.3-8.2) g/dL Albumin 2.2 L (3.5-5.0) g/dL Assessment and Plan Assessment: 1. Arterial thrombosis left [employer] SPECIALIST extending into the proximal SFA and PFA 2. Generalized weakness 3. Altered mental status changes 4. Positive blood cultures 5. New onset atrial fibrillation on Eliquis 5mg BID 6. History of aortic valve replacement 7. History of right nephrectomy Plan: 1. Continue Eliquis 2. Continue IV antibiotics 3. No indication for any vascular surgical intervention at this time 4. Further recommendations forthcoming per vascular surgeon Thank you for this consultation, we will continue to follow. The impression and plan of care has been dictated as directed. I performed a history and examination of this patient, discussed the same with the dictator. I agree with the dictator's note ,documented as a scribe. Any additional findings or plans will be noted.
--- NOTE | 2023-03-21 15:46 | P.PN ---
Subjective Progress Note Date: 03/20/23 HISTORY OF PRESENT ILLNESS This is a 72-year-old female with past medical history of hyperlipidemia, fibro myalgia, gastroesophageal reflux disease, congenital insufficiency of the aortic valve, vitamin D deficiency, ALLERGIC rhinitis, mild intermittent asthma, major depressive disorder. Patient apparently passed out while in the bathroom found on the floor. For the past couple months she has had difficulty with ambulation due to weakness can hardly walk. Her states that she was incoherent and confused yesterday. Weakness has continued and she has had workup outpatient. She was seen by Dr. Mosley in the office on 03/03 and everything seemed stable at that time. She has a scheduled MRI of the brain on Friday. Patient has no previous history of atrial fibrillation. Patient has been seen by cardiology and started on eliquis and metoprolol for atrial fibrillation with plan for possible MAUREEN and electrical cardioversion tomorrow patient does not convert to sinus rhythm overnight 03/20: Patient is confused, she converted to normal sinu rhthm overnight and she has had low grad temperature, had blood cultures and urine cultures and she was seen in consultation by Neurology who recommended MRI of the brain with and without DOUG, her sister in law is here and she was updated about her current condition, consulted ID for possible infectious etiology especially with AI on TTE, and she may well need MAUREEN for further evaluation, patient current condition could be stemming from poaroxysmal atrial fibrillation that can definitely create thromboemblic phenomenon, and possible ischemic disease, we will continue to monitor very closely and her prognosis is guarded. she will need to ve LP for further evaluation REVIEW OF SYSTEMS Constitutional: low grade fever, no chills, positive for night sweats. positive for weight change. + weakness, +fatigue + lethargy. daytime sleepiness. HEENT: No headache. No blurred vision or double vision, no loss of vision. No loss of Hearing, no ringing in the ears, no dizziness. No nasal drainage or congestion. No epistaxis. No sore throat. Lungs: positive for shortness of breath, cough, no sputum production. No wheezing. Cardiovascular: No chest pain, no lower extremity edema. positive for palpitations. No paroxysmal nocturnal dyspnea. No orthopnea, positive for dizziness and syncope. Abdominal: No abdominal pain. No nausea, vomiting. No diarrhea. No constipation. No bloody or tarry stools. No loss of appetite. Genitourinary: No dysuria, increased frequency, urgency. No urinary retention. Musculoskeletal: No myalgias. + muscle weakness, + frequent falls. No back pain. No neck pain. Integumentary: No wounds, no lesions. No rash or pruritus. No unusual bruising. No change in hair or nails. Neurologic: No aphasia. No facial droop. No change in mentation. No head injury. No headache. No paralysis. No paresthesia. Psychiatric: No depression. No anxiety. No mood swings. Endocrine: No abnormal blood sugars. No weight change. No excessive sweating or thirst. No cold intolerance. PHYSICAL EXAMINATION Gen: This is a frail-appearing 72-year-old female appears confused HEENT: Head is atraumatic, normocephalic. Pupils equal, round. Sclerae is anicteric. Oral mucous membranes are slightly dry. NECK: Supple. No JVD. No lymphadenopathy. No thyromegaly. LUNGS: Clear to auscultation. No wheezes or rhonchi. No intercostal retractions. HEART: First heart sound is depressed , second heart sound is normal there is GINA 2/6 located at the left sternl border , positive for diastolic murmur at the right second intercostal space ABDOMEN: Soft. Bowel sounds are present. No masses. No tenderness. EXTREMITIES: No pedal edema. No calf tenderness.DP +1 bilaterally NEUROLOGICAL: Patient is awake, alert and oriented x1. Cranial nerves 2 through 12 are grossly intact, patient is moving all her extremities. ASSESSMENT AND PLAN 1. New onset of atrial fibrillation, paroxysmal. Patient started on eliquis 5 mg twice daily and metoprolol 50 g twice daily. Patient is to be nothing by mouth at midnight for possible MAUREEN and cardioversion with Dr. Mosley if she does not convert overnight to sinus rhythm. 2. Metabolic encephalopathy with low grade temperature possibly underlying infectious etiology, R/O Infective Endocarditis,CVA we will check blood cultures and UA with C+S and ID consult may need LP, ID is on so is Neurology 3. Valvular heart disease status post aortic valve replacement with bioprosthetic valve. Echocardiogram has been obtained which reveals LVH with preserved systolic function. Mildly enlarged right ventricle. Bioprosthetic valve gradient seems significantly elevated. Suboptimal visualization of the aortic valve. meed MAUREEN 4. Dyslipidemia. Continue patient on atorvastatin 40 mg at bedtime. 5. Gastroesophageal reflux disease and GI prophylaxis. Continue Pepcid 40 mg at bedtime and Protonix 40 mg daily. 6. Recurrent depression. Continue Venlafaxine ER 300 mg po daily 7. Fibromyalgia. Continue gabapentin 300 mg 3 times daily as needed. 8. DVT prophylaxis. Eliquis 5 mg po bid 9. GI prophylaxis. we will start Protonix 40 mg po daily. 10. Anemia of unclear etiology. we will check labs 11. Guarded prognosis Objective - Vital Signs Vital signs: Vital Signs Temp 98.5 F 03/20/23 08:35 Pulse 84 03/20/23 08:35 Resp 16 03/20/23 08:35 BP 125/81 03/20/23 08:35 Pulse Ox 94 L 03/20/23 08:35 FiO2 Intake & Output 03/19/23 03/20/23 03/20/23 18:59 06:59 18:59 Output Total 300 Balance -300 Weight 51.256 kg Output: Urine 300 Other: Voiding Method External Catheter External Catheter External Catheter # Voids 1 # Bowel Movements 1 - Labs CBC & Chem 7: 03/21/23 10:06 03/21/23 10:06 Labs: Abnormal Lab Results - Last 24 Hours (Table) 03/19/23 03/20/23 03/20/23 Range/Units 19:34 09:26 09:26 WBC 16.8 H (3.8-10.6) k/uL RBC 3.07 L (3.80-5.40) m/uL Hgb 9.1 L (11.4-16.0) gm/dL Hct 28.4 L (34.0-46.0) % Neutrophils # 14.6 H (1.3-7.7) k/uL Lymphocytes # 0.9 L (1.0-4.8) k/uL Sodium 133 L (137-145) mmol/L Carbon Dioxide 18 L (22-30) mmol/L BUN 18 H (7-17) mg/dL AST 39 H (14-36) U/L ALT 40 H (4-34) U/L Total Protein 5.5 L (6.3-8.2) g/dL Albumin 2.2 L (3.5-5.0) g/dL Vitamin B12 982.0 H (200.0-944.0) pg/mL
--- NOTE | 2023-03-21 15:53 | MR ---
EXAMINATION TYPE: MR brain wo con DATE OF EXAM: 03/21/2023 3:28 PM CLINICAL INDICATION:Female, 72 years old with history of confusion with unsteady gait Confusion with unsteady gait. COMPARISON: 03/22/2023. TECHNIQUE: Multi planar, multi sequence imaging was performed through the brain including: T1, T2, In version recovery, Diffusion weighted imaging, and gradient echo imaging. No gadolinium was given. FINDINGS: Prominent perivascular spaces within the basal ganglia with high T2 signal present. Cerebra l atrophy with proportional dilation to the ventricular system. There are scattered areas of restrict ed diffusion present throughout the bilateral frontal lobes., Occipital lobes, right cerebellum, righ t caudate nucleus. The mathew-white junctions, ventricular system, and cisterns appear unremarkable. Scattered foci an co nfluent areas of of high T2 signal intensity are seen within the periventricular white matter. [place] e structures show no abnormality. The susceptibility weighted images denser scattered areas of bernal ing artifact foci compatible with microhemorrhage. The bone marrow signal is within normal limits. Paranasal sinuses and mastoid air cells: No significant paranasal sinus disease. Visualized orbits: Orbital contents are intact. IMPRESSION: 1. Scattered foci of microinfarcts throughout the brain suggestive of embolic phenomenon. 2. Nonspecific white matter changes, likely secondary to small vessel ischemic disease.
--- NOTE | 2023-03-21 16:51 | P.PN ---
Subjective Progress Note Date: 03/21/23 Principal diagnosis: Enterococcus faecalis bacteremia Patient is a 72-year-old female with a past medical history significant for kidney cancer status post removal of the right kidney anxiety depression presenting to the hospital for evaluation of weakness and fall did have low-grade fever vomiting this infection disease consultation. On today's evaluation that is03/21/2023, the patient continues to be afebrile the patient is breathing comfortably on 2 L nasal cannula oxygen, the patient denies chest pain or cough, patient denies abdominal pain and no nausea/vomiting and no diarrhea has been reported. Patient is a white count of 15.6, creatinine 0.67 blood culture with Enterococcus faecalis significant abnormality on the CT of abdominal pelvis which was reviewed Objective - Vital Signs Vital signs: Vital Signs Temp 98.0 F 03/21/23 08:00 Pulse 74 03/21/23 11:23 Resp 17 03/21/23 11:23 BP 144/73 03/21/23 11:23 Pulse Ox 99 03/21/23 11:23 FiO2 Intake & Output 03/20/23 03/21/23 03/21/23 18:59 06:59 18:59 Intake Total 1074 540 Output Total 100 Balance 974 540 Intake: Intake, IV Titration 630 Amount Sodium Chloride 0.9% 1, 130 000 ml @ 130 mls/hr IV . Q7H42M [facility] Rx#:[id number] Sodium Chloride 0.9% 500 500 ml 500 ml @ 999 mls/hr IV .Q31M ONE Rx#:[id number] Oral 444 540 Output: Urine 100 Other: Voiding Method External Catheter External Catheter Diaper External Catheter # Voids 1 2 1 # Bowel Movements 1 2 - Exam GENERAL DESCRIPTION: An elderly female lying in bed in no distress RESPIRATORY SYSTEM: Unlabored breathing , decreased breath sounds at bases HEART: S1 S2 regular rate and rhythm , ABDOMEN: Soft , no tenderness EXTREMITIES: No edema feet - Labs CBC & Chem 7: 03/21/23 10:06 03/21/23 10:06 Labs: Abnormal Lab Results - Last 24 Hours (Table) 03/20/23 03/20/23 03/20/23 Range/Units 09:04 13:19 13:19 WBC (3.8-10.6) k/uL RBC (3.80-5.40) m/uL Hgb (11.4-16.0) gm/dL Hct (34.0-46.0) % Neutrophils # (1.3-7.7) k/uL Lymphocytes # (1.0-4.8) k/uL Retic Count 2.7 H (0.5-2.0) % Sodium (137-145) mmol/L Chloride (98-107) mmol/L Carbon Dioxide (22-30) mmol/L Glucose (74-99) mg/dL Calcium (8.4-10.2) mg/dL Iron 24 L (50-170) UG/DL TIBC 196 L (228-460) UG/DL Transferrin 140.0 L (204.0-354.0) mg/dL Ferritin 731.0 H (10.0-291.0) ng/mL AST (14-36) U/L ALT (4-34) U/L C-Reactive Protein 23.6 H (<1.0) mg/dL Total Protein (6.3-8.2) g/dL Albumin (3.5-5.0) g/dL Procalcitonin (0.02-0.09) ng/mL Urine Appearance Turbid H (Clear) Ur Specific [place] >1.050 H (1.001-1.035) Urine Protein 4+ H (Negative) Urine Ketones 1+ H (Negative) Urine Blood Large H (Negative) Urine RBC 57 H (0-5) /hpf Calcium Oxalate Crystal Occasional H (None) /hpf 03/20/23 03/21/23 03/21/23 Range/Units 13:19 10:06 10:06 WBC 15.6 H (3.8-10.6) k/uL RBC 3.02 L (3.80-5.40) m/uL Hgb 9.0 L (11.4-16.0) gm/dL Hct 28.3 L (34.0-46.0) % Neutrophils # 13.6 H (1.3-7.7) k/uL Lymphocytes # 0.8 L (1.0-4.8) k/uL Retic Count (0.5-2.0) % Sodium 133 L (137-145) mmol/L Chloride 108 H (98-107) mmol/L Carbon Dioxide 20 L (22-30) mmol/L Glucose 115 H (74-99) mg/dL Calcium 8.3 L (8.4-10.2) mg/dL Iron (50-170) UG/DL TIBC (228-460) UG/DL Transferrin (204.0-354.0) mg/dL Ferritin (10.0-291.0) ng/mL AST 48 H (14-36) U/L ALT 39 H (4-34) U/L C-Reactive Protein (<1.0) mg/dL Total Protein 5.6 L (6.3-8.2) g/dL Albumin 2.2 L (3.5-5.0) g/dL Procalcitonin 0.42 H (0.02-0.09) ng/mL Urine Appearance (Clear) Ur Specific [place] (1.001-1.035) Urine Protein (Negative) Urine Ketones (Negative) Urine Blood (Negative) Urine RBC (0-5) /hpf Calcium Oxalate Crystal (None) /hpf Microbiology - Last 24 Hours (Table) 03/20/23 13:19 Blood Culture Gram Stain - Preliminary Blood 03/20/23 13:19 Blood Culture Gram Stain - Preliminary Blood Assessment and Plan (1) Bacteremia Current Visit: Yes Status: Acute Code(s): R78.81 - BACTEREMIA SNOMED Code(s): 2262140 (2) Allergy to multiple antibiotics Current Visit: Yes Status: Acute Code(s): Z88.1 - ALLERGY STATUS TO OTHER ANTIBIOTIC AGENTS SNOMED Code(s): 830015812 Plan: 1patient with a low-grade fever in this patient presented to hospital with a fall and weakness and apparently has becoming more forgetful over the last few weeks some confusion has been noticed patient initial work-up including a UA chest x-ray has been negative no evidence of any cellulitis or joint swelling no neck rigidity was noticed, patient workup did include blood cultures came back positive for Enterococcus faecalis and the patient also have significant abnormality on the CT abdominal pelvis with concern for acute thrombophlebitis involving the left [employer] SFA and PFA for its risk of surgery has been consulted 2-source of bacteremia is likely endocarditis as the patient did have a negative UA CT abdominal pelvis did not show any acute abnormality to the bowel MAUREEN was discussed with the cardiology 3-vancomycin pharmacy to dose for watching her kidney function closely as the patient to have ALLERGY to penicillin CT findings were discussed with the radiologist admitting physician as well as vascular surgery and multiple calls were placed Dictation was produced using [employer] dictation software. please excuse any grammatical, word or spelling errors. Time with Patient: Greater than 30
--- NOTE | 2023-03-21 16:52 | P.GSCN ---
History of Present Illness Consult date: 03/21/23 Reason for Consult: Bioprosthetic aortic valve stenosis with a mean gradient of 64 mmHg and peak gradient of 106 mmHg, evaluation for TAVR procedure Requesting physician: Maverick Van History of present illness: This is a 72-year-old female patient who follows on an outpatient basis with Dr. Cayden Jacobsen for her primary care. She has a past medical history significant for hyperlipidemia, fibromyalgia, GERD, aortic valve disease status post minimally invasive aortic valve replacement completed at [facility] using a [employer] trifecta GT 21 mm valve on 10/10/2016, asthma, kidney cancer status post right nephrectomy, major depressive disorder, history of urinary tract infections and is a lifetime nonsmoker. The patient presented to the emergency department here at [facility] via EMS on 03/18/2023 after the patient had a fall. According to her family she was walking to the bathroom and subsequently fell. She denies any recent fever, chills, nausea, vomiting, diarrhea, constipation, lightheadedness, presyncope, syncope, palpitations, chest pain or chest pressure. The patient's present at her bedside reports that she has had some increase in shortness of breath over the past couple of months. He reports that he used to walk a couple of miles a day together up till November of this year. He states that the patient has progressively become confused, weak and debilitated over the past couple of months. Her reports that she has a shuffling gait with generalized weakness. Laboratory results on admission showed a WBC count of 15.0, hemoglobin 9.6, hematocrit 29.7, platelets 297, PT 10.5, INR 1.0, PTT 20.3, sodium 133, potassium 4.2, BUN 16, creatinine 0.72, glucose 178, calcium 8.7, magnesium 1.9, AST 64, ALT 55, an elevated serial troponins as high as 0.871 which trended down to 0.476. A 12-lead EKG was completed which showed normal sinus rhythm with a first-degree heart block heart rate 102 BPM. Due to the patient's presenting symptoms and elevated troponins cardiology was consulted and a transthoracic 2-D echocardiogram was completed on 03/19/2023 which demonstrated a left ventricular ejection fraction estimated to be at 55-60%, mild mitral valve regurgitation, a bioprosthetic A0V stenosis with a mean gradient of 64 mmHg and a max gradient of 106 mmHg, and no pericardial effusion. The patient also underwent a computed tomography scan of the brain without contrast due to her confusion which showed no acute intracranial process and nonspecific white matter changes, likely secondary to chronic small vessel ischemic disease. 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 The computed tomography scan also demonstrated small bilateral pleural effusions and septal lines in the lower lungs which may reflect pulmonary vascular congestion. Subsequently, due to the findings on the transthoracic 2-D echocardiogram in the patient's history of aortic valve replacement a consult was placed to her to thoracic surgery for further evaluation and treatment recommendations. Review of Systems A 14 point review of systems was completed and was negative except as mentioned in the HPI Past Medical History Past Medical History: Asthma, Cancer, Fibromyalgia, GERD/Reflux, Hyperlipidemia Additional Past Medical History / Comment(s): kidney cancer History of Any Multi-Drug Resistant Organisms: None Reported Past Surgical History: Cholecystectomy Additional Past Surgical History / Comment(s): rt kidney removal Past Anesthesia/Blood Transfusion Reactions: No Reported Reaction Past Psychological History: Anxiety, Depression Smoking Status: Never smoker Past Alcohol Use History: None Reported Past Drug Use History: None Reported - Past Family History Mother Family Medical History: Cancer Additional Family Medical History / Comment(s): Ovarian cancer Father Family Medical History: Dementia Medications and Allergies Home Medications Medication Instructions Recorded Confirmed Type Albuterol Inhaler [Ventolin Hfa 1 - 2 puff INHALATION RT-Q6H PRN 01/22/23 03/18/23 History Inhaler] Ascorbic Acid [Vitamin C] 1,000 mg PO DAILY 01/22/23 03/18/23 History Atorvastatin [Lipitor] 40 mg PO HS 01/22/23 03/18/23 History Cholecalciferol [Vitamin D3 (25 50 mcg PO DAILY 01/22/23 03/18/23 History Mcg = 1000 Iu)] Famotidine 40 mg PO HS 01/22/23 03/18/23 History Gabapentin [Neurontin] 300 mg PO TID PRN 01/22/23 03/18/23 History Multivitamins, Thera [Multivitamin 1 tab PO DAILY 01/22/23 03/18/23 History (formulary)] Omeprazole 40 mg PO AC-BRKFST 01/22/23 03/18/23 History Vitamin E (Dl,Tocopheryl Acet) 400 unit PO DAILY 01/22/23 03/18/23 History [Vitamin E (400 Iu = 180 mg)] FLUoxetine HCL [Sarafem] 20 mg PO HS 03/18/23 03/18/23 History Allergies Allergy/AdvReac Type Severity Reaction Status Date / Time ceftriaxone [From Rocephin] Allergy Rash/Hives Verified 03/18/23 21:36 Penicillins Allergy Rash/Hives Verified 03/18/23 21:36 Surgical - Exam Vital Signs Temp Pulse Resp BP Pulse Ox 98.2 F 104 H 18 110/60 99 03/18/23 18:02 03/18/23 18:02 03/18/23 18:02 03/18/23 18:02 03/18/23 18:02 - General Frail 72-year-old female patient no distress, no pain, chronically ill - Eyes PERRL, normal ocular movement, no pale, no icteric - ENT normal pinna, normal nares, normal mucosa, no hearing loss, no congestion - Neck Neck is supple, no lymphadenopathy. no masses, no bruits, trachea midline, no venous distension - Respiratory Lungs sounds essentially clear throughout, no wheezes, rhonchi or crackles. Respirations are symmetrical and nonlabored. - Cardiovascular Regular rhythm and rate. S1 and S2 present, negative for S3, or gallop, systolic murmur present. No peripheral edema. - Abdomen Abdomen is soft, nontender and nondistended. Active bowel sounds present in all 4 abdominal quadrants. No guarding or rigidity. - Genitourinary Deferred - Rectum Deferred - Integumentary Skin is warm and dry. No clubbing or cyanosis is present. no rash, no growths, no abnormal pigmentation - Neurologic No focal deficits. - Musculoskeletal Generalized weakness and debility. Moves all 4 extremities. - Psychiatric Disoriented to time. Oriented to place and person. Episodes of confusion. no memory intact Results - Labs 03/24/23 08:29 03/24/23 08:29 Abnormal Lab Results - Last 24 Hours (Table) 03/20/23 03/20/23 03/21/23 Range/Units 13:19 13:19 10:06 WBC 15.6 H (3.8-10.6) k/uL RBC 3.02 L (3.80-5.40) m/uL Hgb 9.0 L (11.4-16.0) gm/dL Hct 28.3 L (34.0-46.0) % Neutrophils # 13.6 H (1.3-7.7) k/uL Lymphocytes # 0.8 L (1.0-4.8) k/uL Sodium (137-145) mmol/L Chloride (98-107) mmol/L Carbon Dioxide (22-30) mmol/L Glucose (74-99) mg/dL Calcium (8.4-10.2) mg/dL Iron 24 L (50-170) UG/DL TIBC 196 L (228-460) UG/DL Transferrin 140.0 L (204.0-354.0) mg/dL Ferritin 731.0 H (10.0-291.0) ng/mL AST (14-36) U/L ALT (4-34) U/L Total Protein (6.3-8.2) g/dL Albumin (3.5-5.0) g/dL Procalcitonin 0.42 H (0.02-0.09) ng/mL 03/21/23 Range/Units 10:06 WBC (3.8-10.6) k/uL RBC (3.80-5.40) m/uL Hgb (11.4-16.0) gm/dL Hct (34.0-46.0) % Neutrophils # (1.3-7.7) k/uL Lymphocytes # (1.0-4.8) k/uL Sodium 133 L (137-145) mmol/L Chloride 108 H (98-107) mmol/L Carbon Dioxide 20 L (22-30) mmol/L Glucose 115 H (74-99) mg/dL Calcium 8.3 L (8.4-10.2) mg/dL Iron (50-170) UG/DL TIBC (228-460) UG/DL Transferrin (204.0-354.0) mg/dL Ferritin (10.0-291.0) ng/mL AST 48 H (14-36) U/L ALT 39 H (4-34) U/L Total Protein 5.6 L (6.3-8.2) g/dL Albumin 2.2 L (3.5-5.0) g/dL Procalcitonin (0.02-0.09) ng/mL Microbiology - Last 24 Hours (Table) 03/20/23 13:19 Blood Culture Gram Stain - Preliminary Blood 03/20/23 13:19 Blood Culture Gram Stain - Preliminary Blood Diabetes panel 03/21/23 Range/Units 10:06 Sodium 133 L (137-145) mmol/L Potassium 4.2 (3.5-5.1) mmol/L Chloride 108 H (98-107) mmol/L Carbon Dioxide 20 L (22-30) mmol/L BUN 12 (7-17) mg/dL Creatinine 0.67 (0.52-1.04) mg/dL Glucose 115 H (74-99) mg/dL Calcium 8.3 L (8.4-10.2) mg/dL AST 48 H (14-36) U/L ALT 39 H (4-34) U/L Alkaline Phosphatase 83 (38-126) U/L Total Protein 5.6 L (6.3-8.2) g/dL Albumin 2.2 L (3.5-5.0) g/dL Calcium panel 03/21/23 Range/Units 10:06 Calcium 8.3 L (8.4-10.2) mg/dL Albumin 2.2 L (3.5-5.0) g/dL Pituitary panel 03/21/23 Range/Units 10:06 Sodium 133 L (137-145) mmol/L Potassium 4.2 (3.5-5.1) mmol/L Chloride 108 H (98-107) mmol/L Carbon Dioxide 20 L (22-30) mmol/L BUN 12 (7-17) mg/dL Creatinine 0.67 (0.52-1.04) mg/dL Glucose 115 H (74-99) mg/dL Calcium 8.3 L (8.4-10.2) mg/dL Adrenal panel 03/21/23 Range/Units 10:06 Sodium 133 L (137-145) mmol/L Potassium 4.2 (3.5-5.1) mmol/L Chloride 108 H (98-107) mmol/L Carbon Dioxide 20 L (22-30) mmol/L BUN 12 (7-17) mg/dL Creatinine 0.67 (0.52-1.04) mg/dL Glucose 115 H (74-99) mg/dL Calcium 8.3 L (8.4-10.2) mg/dL Total Bilirubin 0.5 (0.2-1.3) mg/dL AST 48 H (14-36) U/L ALT 39 H (4-34) U/L Alkaline Phosphatase 83 (38-126) U/L Total Protein 5.6 L (6.3-8.2) g/dL Albumin 2.2 L (3.5-5.0) g/dL - Imaging Chest x-ray: report reviewed, image reviewed Additional studies: Transthoracic 2-D echocardiogram results reviewed by Dr. Adrian Acevedo Assessment and Plan Assessment: History of aortic valve disease, status post bioprosthetic valve replacement minimally invasive in October 2016 at [facility], transthoracic 2-D echocardiogram showing severe aortic valve stenosis with a mean gradient of 64 mmHg and intact peak gradient of 106 mmHg Arterial thrombus of the left APPLIANCE SERVICE TECHNICIAN extending into the proximal SFA and PFA on computed tomography scan of the abdomen/pelvis Status post fall from standing, generalized weakness and medical debility Positive blood cultures preliminary results growing gram-positive cocci in chains New-onset atrial fibrillation, currently on Eliquis 5 mg by mouth twice a day History of kidney cancer, status post right nephrectomy History of asthma Major depressive disorder History of urinary tract infections GERD Hyperlipidemia Is a lifetime nonsmoker Plan: The patient was seen and examined at her bedside today on the third floor cardiac stepdown unit in conjunction with Dr. Adrian Acevedo. Her chart and diagnostics were reviewed. She has several family members present at her bedside, the patient is having episodes of confusion. Dr. Acevedo spoke with the family about proceeding with TAVR workup, although due to the patient's positive blood cultures and new findings of arterial thrombus left APPLIANCE SERVICE TECHNICIAN extending into the proximal SFA and PFA we will hold off on further TAVR workup at this time. Once the patient is more medically stable we will proceed with TAVR workup. The patient's family is in agreement with this plan. Continue to maximize medical management, infectious disease is following for the positive blood cultures and vascular has been consulted for the findings on the computed tomography scan of the abdomen/pelvis. Thank you Dr. Van for this consult any further questions regarding proceeding with TAVR please feel free to reconsult cardiothoracic surgery service. I have personally seen and examined the patient, performed the documentation and the assessment and plan as written. 30 minutes spent on the visit . Ash SARMIENTO Time with Patient: Greater than 30
--- NOTE | 2023-03-21 17:00 | US ---
EXAMINATION TYPE: US carotid duplex BILAT DATE OF EXAM: 03/21/2023 COMPARISON: NONE CLINICAL INDICATION: Female, 72 years old with history of Pre-Op Cardiac Surgery; TECHNIQUE: Carotid duplex ultrasound examination. Indirect Doppler criteria was utilized. FINDINGS: EXAM MEASUREMENTS: RIGHT: Peak Systolic Velocity (PSV) cm/sec ----- Right CCA: 47.8 ----- Right ICA: 56.5 ----- Right ECA: 58.0 ICA/CCA ratio: 1.2 RIGHT: End Diastole cm/sec ----- Right CCA: 11.5 ----- Right ICA: 21.7 ----- Right ECA: 8.6 LEFT: Peak Systolic Velocity (PSV) cm/sec ----- Left CCA: 65.3 ----- Left ICA: 63.8 ----- Left ECA: 59.5 ICA/CCA ratio: 1.0 LEFT: End Diastole cm/sec ----- Left CCA: 15.8 ----- Left ICA: 17.3 ----- Left ECA: 5.7 VERTEBRALS (direction of flow): Right Vertebral: Antegrade Left Vertebral: Antegrade Rhythm: Normal CARDIOLOGY CLINICAL NURSE SPECIALIST NOTES: No significant stenosis seen IMPRESSION: No hemodynamically significant internal carotid artery stenosis on either side. Criteria for Assigning % of Stenosis / Diameter reduction (Estimation based on the indirect measurements of the internal carotid artery velocities (ICA PSV). 1. Normal (no stenosis)=ICA PSV < 125 cm/s: ratio < 2.0: ICA EDV<40 cm/s. 2. Less than 50% stenosis=ICA PSV < 125 cm/s: ratio < 2.0: ICA EDV<40 cm/s. 3. 50 to 69% stenosis=ICA PSV of 125 to 230 cm/s: ration 2.0 ? 4.0: ICA EDV 40-100 cm/s. 4. Greater than 70% stenosis to near occlusion= ICA PSV > 230 cm/s: ratio > 4.0: ICA EDV > 100 cm/s. 5. Near occlusion= ICA PSV velocities may be low or undetectable: variable ratio and ICA EDV. 6. Total occlusion=unable to detect flow.
[2023-03-21 17:44] LABS: HSV I IgG Interp POSITIVE; HSV II IgG Interp Negative (Negative)
[2023-03-21] MEDS ORDERED: HEPARIN SODIUM 1,000 UN/ML (10ML VL) IV ONE (17:50)
[2023-03-21] MEDS: HEPARIN SOD,PORK IN 0.45% NACL 25,000 UNIT in 0.45% NACL 1 250ML.BAG IV SCH (18:15)
--- NOTE | 2023-03-21 18:29 | P.PN ---
Subjective Progress Note Date: 03/21/23 Progress note 03/21/2023 As a part of her confusion evaluation patient had an extensive workup. Her blood cultures came back positive for possible enterococcus bacteremia. She also has low-grade fevers. CT abdomen showed possible thrombus and right common femoral artery. She has intact pulses in bilateral lower extremity. She denies having any chest pain chest pressure. She is in sinus rhythm. She is hemodynamically stable. MRI brain showed possible embolic strokes. History of present illness: History of present illness: This is a 72-year-old female patient Dr. Mosley a past medical history of valvular heart disease status post aortic valve replacement using bioprosthetic valve, dyslipidemia. We have been asked to evaluate the patient for weakness and elevated troponins. History is obtained from the patient and her . Patient apparently passed out while in the bathroom found on the floor. For the past couple months she has had difficulty with ambulation due to weakness can hardly walk. Her states that she was incoherent and confused yesterday. Weakness has continued and she has had workup outpatient. She was seen by Dr. Mosley in the office on 03/03 and everything seems stable at that time. She has a scheduled MRI of the brain on Friday. Patient has no previous history of atrial fibrillation. EKG sinus rhythm, telemetry atrial fibrillation Chest x-ray: COPD CAT scan of the brain and cervical spine revealed chronic white matter ischemic changes. No acute intracranial process. No acute fractures of the cervical spine. Degenerative joint changes contributed to foraminal stenosis. DDD. Echocardiogram reveals LVH with preserved systolic function. Mildly enlarged right ventricle. Bioprosthetic valve gradient seems significantly elevated. Suboptimal visualization of the aortic valve. Troponin 0.871, 0.647, 0.476. WBC 12.2, hemoglobin 9.8. AST 56, ALT 53. Sodium 134, potassium 4.4, creatinine 0.71. Home cardiac medications: Atorvastatin 40 mg at bedtime Physical examination: Gen: This is a 72-year-old female. She is resting on ER stretcher. To be in no acute distress.] VS: reviewed HEENT: Head is atraumatic, normocephalic. Pupils equal, round. Sclerae is anicteric. NECK: Supple. No JVD. . LUNGS: Clear to auscultation. No wheezes or rhonchi. No intercostal retractions. HEART: Irregular rate and rhythm. Systolic murmur. ABDOMEN: Soft No tenderness. EXTREMITIES: No pedal edema. No calf tenderness. NEUROLOGICAL: Patient is awake, alert and oriented x3. Assessment: New-onset if atrial fibrillation, status post spontaneous cardioversion. Atrial fibrillation is new on this admission. This is likely due to increased and her cardiac pressures from aorta stenosis and aortic regurgitation. Embolic stroke, MRI showed scattered foci embolic stroke throughout the cerebrum. Gram-positive cocci septicemia with low-grade fevers Concerns of septic embolization. Other differential includes embolic stroke from atrial fibrillation. Mixed aortic valve disease with moderate aortic regurgitation and severe aortic stenosis. Pressure half time is around 400 msec. This puts her at moderate aortic regurgitation. VTI ratio is >0.3 and AT <100 msec. this puts her in the category of high flow state and patient processes mismatch. Status post bioprosthetic aortic valve, [facility] in 2017 in [facility] Dyslipidemia Plan: Discontinue Eliquis. Start low-grade IV heparin without bolus with repeatedly of around 40-50. Monitor for any changes in mental status. If there is any acute changes, obtain CT head to look for any hemorrhagic transformation of the stroke. Continue IV antibiotics, consult infectious disease Continue metoprolol to 25 mg twice a day Continue lisinopril 5 mg daily to reduce afterload Obtain MAUREEN on Friday with Dr Mosley Objective - Vital Signs Vital signs: Vital Signs Temp 98.9 F 03/21/23 16:43 Pulse 87 03/21/23 16:43 Resp 20 03/21/23 16:43 BP 145/77 03/21/23 16:43 Pulse Ox 99 03/21/23 16:43 FiO2 Intake & Output 03/20/23 03/21/23 03/21/23 18:59 06:59 18:59 Intake Total 1074 540 Output Total 100 Balance 974 540 Intake: Intake, IV Titration 630 Amount Sodium Chloride 0.9% 1, 130 000 ml @ 50 mls/hr IV . Q20H [facility] Rx#:[id number] Sodium Chloride 0.9% 500 500 ml 500 ml @ 999 mls/hr IV .Q31M [facility] Rx#:[id number] Oral 444 540 Output: Urine 100 Other: Voiding Method External Catheter External Catheter Diaper External Catheter # Voids 1 2 1 # Bowel Movements 1 1 - Labs CBC & Chem 7: 03/21/23 10:06 03/21/23 10:06 Labs: Abnormal Lab Results - Last 24 Hours (Table) 03/20/23 03/20/23 03/21/23 Range/Units 13:19 13:19 10:06 WBC 15.6 H (3.8-10.6) k/uL RBC 3.02 L (3.80-5.40) m/uL Hgb 9.0 L (11.4-16.0) gm/dL Hct 28.3 L (34.0-46.0) % Neutrophils # 13.6 H (1.3-7.7) k/uL Lymphocytes # 0.8 L (1.0-4.8) k/uL Sodium (137-145) mmol/L Chloride (98-107) mmol/L Carbon Dioxide (22-30) mmol/L Glucose (74-99) mg/dL Calcium (8.4-10.2) mg/dL Iron 24 L (50-170) UG/DL TIBC 196 L (228-460) UG/DL Transferrin 140.0 L (204.0-354.0) mg/dL Ferritin 731.0 H (10.0-291.0) ng/mL AST (14-36) U/L ALT (4-34) U/L Total Protein (6.3-8.2) g/dL Albumin (3.5-5.0) g/dL Procalcitonin 0.42 H (0.02-0.09) ng/mL 03/21/23 Range/Units 10:06 WBC (3.8-10.6) k/uL RBC (3.80-5.40) m/uL Hgb (11.4-16.0) gm/dL Hct (34.0-46.0) % Neutrophils # (1.3-7.7) k/uL Lymphocytes # (1.0-4.8) k/uL Sodium 133 L (137-145) mmol/L Chloride 108 H (98-107) mmol/L Carbon Dioxide 20 L (22-30) mmol/L Glucose 115 H (74-99) mg/dL Calcium 8.3 L (8.4-10.2) mg/dL Iron (50-170) UG/DL TIBC (228-460) UG/DL Transferrin (204.0-354.0) mg/dL Ferritin (10.0-291.0) ng/mL AST 48 H (14-36) U/L ALT 39 H (4-34) U/L Total Protein 5.6 L (6.3-8.2) g/dL Albumin 2.2 L (3.5-5.0) g/dL Procalcitonin (0.02-0.09) ng/mL Microbiology - Last 24 Hours (Table) 03/20/23 13:19 Blood Culture Gram Stain - Preliminary Blood 03/20/23 13:19 Blood Culture Gram Stain - Preliminary Blood
[2023-03-21 19:36] LABS: Basophils % (A) 0 %; Eosinophils # (A) 0.1 k/uL (0-0.7); Eosinophils % (A) 1 %; HCT 26.1 % (34.0-46.0); HGB 8.5 gm/dL (11.4-16.0); Hypochromasia Slight; Lymphocytes % (A) 7 %; MCH 29.7 pg (25.0-35.0); MCHC 32.4 g/dL (31.0-37.0); MCV 91.8 fL (80.0-100.0); Mean Platelet Volume 7.3; Monocytes # (A) 0.6 k/uL (0-1.0); Monocytes % (A) 5 %; Neutrophils # (A) 11.4 k/uL (1.3-7.7); Neutrophils % (A) 85 %; Platelet Count 385 k/uL (150-450); RBC 2.85 m/uL (3.80-5.40); RDW 14.1 % (11.5-15.5); WBC 13.4 k/uL (3.8-10.6)
[2023-03-21 19:45] LABS: Partial Thromboplastin Time 48.3 sec (22.0-30.0)
[2023-03-21 19:48] LABS: Prothrombin Time 11.4 sec (10.0-12.5)
[2023-03-21] MEDS: ATORVASTATIN 40 MG TAB PO SCH (21:02)
[2023-03-21] MEDS: VANCOMYCIN 750 MG in SODIUM CHLORIDE 0.9% 250 ML IVPB SCH (23:34)
[2023-03-22] MEDS: ALBUTEROL NEBULIZED 2.5 MG/3 ML INHALATION PRN (02:45)
[2023-03-22] MEDS: PANTOPRAZOLE 40 MG TABLET PO SCH (06:05)
[2023-03-22] MEDS: VENLAFAXINE HCL ER 150 MG CAP PO SCH (08:40)
[2023-03-22] MEDS: MULTIVITAMINS, THERA 1 EACH TAB PO SCH (08:40)
[2023-03-22] MEDS: VITAMIN E (DL,TOCOPHERYL ACET) 400 UNIT (180 MG) CAP PO SCH (08:40)
[2023-03-22] MEDS: METOPROLOL TARTRATE 25 MG TAB PO SCH ×2 (08:40→19:57)
[2023-03-22] MEDS: CHOLECALCIFEROL 25 MCG (1000 IU) TABLET PO SCH (08:40)
[2023-03-22] MEDS: ASCORBIC ACID 500 MG TAB PO SCH (08:40)
[2023-03-22 09:37] LABS: Basophils % (A) 0 %; Eosinophils # (A) 0.1 k/uL (0-0.7); Eosinophils % (A) 0 %; HCT 27.5 % (34.0-46.0); HGB 8.6 gm/dL (11.4-16.0); Hypochromasia Moderate; Lymphocytes # (A) 0.7 k/uL (1.0-4.8); Lymphocytes % (A) 5 %; MCH 29.4 pg (25.0-35.0); MCHC 31.2 g/dL (31.0-37.0); MCV 94.2 fL (80.0-100.0); Mean Platelet Volume 7.1; Monocytes # (A) 0.6 k/uL (0-1.0); Monocytes % (A) 4 %; Neutrophils # (A) 13.9 k/uL (1.3-7.7); Neutrophils % (A) 90 %; Platelet Count 430 k/uL (150-450); RBC 2.92 m/uL (3.80-5.40); RDW 14.3 % (11.5-15.5); WBC 15.5 k/uL (3.8-10.6)
[2023-03-22 09:52] LABS: Partial Thromboplastin Time 34.8 sec (22.0-30.0)
[2023-03-22 09:54] LABS: African American GFR (CKD) >90 (>60 ml/min/1.73 sqM); Non-African American GFR(CKD) 89 (>60 ml/min/1.73 sqM)
[2023-03-22 10:10] LABS: Chol/HDL Ratio 3.89 Ratio; LDL Cholesterol,Calculated 70.4 mg/dL (0.0-131.0)
[2023-03-22 10:38] LABS: Hepatitis A Antibody IgM Nonreactive; Hepatitis B Core IgM Nonreactive; Hepatitis B Surface Antigen Nonreactive; Hepatitis C IgG Antibody Nonreactive
--- NOTE | 2023-03-22 11:10 | P.PN ---
Subjective Progress Note Date: 03/21/23 HISTORY OF PRESENT ILLNESS This is a 72-year-old female with past medical history of hyperlipidemia, fibro myalgia, gastroesophageal reflux disease, congenital insufficiency of the aortic valve, vitamin D deficiency, ALLERGIC rhinitis, mild intermittent asthma, major depressive disorder. Patient apparently passed out while in the bathroom found on the floor. For the past couple months she has had difficulty with ambulation due to weakness can hardly walk. Her states that she was incoherent and confused yesterday. Weakness has continued and she has had workup outpatient. She was seen by Dr. Mosley in the office on 03/03 and everything seemed stable at that time. She has a scheduled MRI of the brain on Friday. Patient has no previous history of atrial fibrillation. Patient has been seen by cardiology and started on eliquis and metoprolol for atrial fibrillation with plan for possible MAUREEN and electrical cardioversion tomorrow patient does not convert to sinus rhythm overnight 03/20: Patient is confused, she converted to normal sinu rhthm overnight and she has had low grad temperature, had blood cultures and urine cultures and she was seen in consultation by Neurology who recommended MRI of the brain with and without DOUG, her sister in law is here and she was updated about her current condition, consulted ID for possible infectious etiology especially with AI on TTE, and she may well need MAUREEN for further evaluation, patient current condition could be stemming from poaroxysmal atrial fibrillation that can definitely create thromboemblic phenomenon, and possible ischemic disease, we will continue to monitor very closely and her prognosis is guarded. she will need to ve LP for further evaluation 03/21: Patient was more awake today and she underwent MRI of the brain that did show evidence of scattered foci of microinfarcts in bilateral frontal lobes, occipital lobes, cerebellum and right caudate nucleus suggestive of embolic stroke, patient also was found to have severe Aortic stenosis and moderate AI on TTE and she will undergo MAUREEN for possible septic emboli also she underwent CT Abdomen and pelvis that showed PAD with possible thrombophlebitis was seen by Vascular surgery who recommended no intervention at this point, blood cultures showed Enterococcus and IDS started the patient on Vancomycin as she is allergic to PCN, Cardiothoracic surgery was added as well REVIEW OF SYSTEMS Constitutional: low grade fever, no chills, positive for night sweats. pos itive for weight change. + weakness, +fatigue + lethargy. daytime sleepiness. HEENT: No headache. No blurred vision or double vision, no loss of vision. No loss of Hearing, no ringing in the ears, no dizziness. No nasal drainage or congestion. No epistaxis. No sore throat. Lungs: positive for shortness of breath, cough, no sputum production. No wheezing. Cardiovascular: No chest pain, no lower extremity edema. positive for palpitations. No paroxysmal nocturnal dyspnea. No orthopnea, positive for dizziness and syncope. Abdominal: No abdominal pain. No nausea, vomiting. No diarrhea. No constipation. No bloody or tarry stools. No loss of appetite. Genitourinary: No dysuria, increased frequency, urgency. No urinary retention. Musculoskeletal: No myalgias. + muscle weakness, + frequent falls. No back pain. No neck pain. Integumentary: No wounds, no lesions. No rash or pruritus. No unusual bruising. No change in hair or nails. Neurologic: No aphasia. No facial droop. No change in mentation. No head injury. No headache. No paralysis. No paresthesia. Psychiatric: No depression. No anxiety. No mood swings. Endocrine: No abnormal blood sugars. No weight change. No excessive sweating or thirst. No cold intolerance. PHYSICAL EXAMINATION Gen: This is a frail-appearing 72-year-old female appears confused HEENT: Head is atraumatic, normocephalic. Pupils equal, round. Sclerae is anicteric. Oral mucous membranes are slightly dry. NECK: Supple. No JVD. No lymphadenopathy. No thyromegaly. LUNGS: Clear to auscultation. No wheezes or rhonchi. No intercostal retractions. HEART: First heart sound is depressed , second heart sound is normal there is GINA 2/6 located at the left sternl border , positive for diastolic murmur at the right second intercostal space ABDOMEN: Soft. Bowel sounds are present. No masses. No tenderness. EXTREMITIES: No pedal edema. No calf tenderness.DP +1 bilaterally NEUROLOGICAL: Patient is awake, alert and oriented x1. Cranial nerves 2 through 12 are grossly intact, patient is moving all her extremities. ASSESSMENT AND PLAN 1. New onset of atrial fibrillation, paroxysmal. patient was switched to Heparin drip and was taken off Eliquis and she will be maintained on Metoprolol 25 mg po bid and scheduled for MAUREEN on Friday for possible Endocarditis. 2. 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 we will continue with heparin drip, we will continue with Atorvastatin, going for MAUREEN on Friday for possible Endocarditis and septic emboli, 3. Valvular heart disease status post aortic valve replacement with bioprosthetic valve. Echocardiogram has been obtained which reveals LVH with preserved systolic function. Mildly enlarged right ventricle. Bioprosthetic valve gradient seems significantly elevated. Suboptimal visualization of the aortic valve. MAUREEN on Friday 4. Enterococcus Bacteremia. likely related to Endocarditis.we will continue with Vancomycin and she is going for MAUREEN on Friday 5. Dyslipidemia. Continue patient on atorvastatin 40 mg at bedtime. 6. Gastroesophageal reflux disease and GI prophylaxis. Continue Pepcid 40 mg at bedtime and Protonix 40 mg daily. 7. Recurrent depression. Continue Venlafaxine ER 300 mg po daily 8. Fibromyalgia. Continue gabapentin 300 mg 3 times daily as needed. 9. DVT prophylaxis. continue with heparin drip 10. GI prophylaxis. continue Protonix 40 mg po daily. 11. Anemia of unclear etiology. we will check labs 12. Guarded prognosis Objective - Vital Signs Vital signs: Vital Signs Temp 98.0 F 03/21/23 08:00 Pulse 74 03/21/23 11:23 Resp 17 03/21/23 11:23 BP 144/73 03/21/23 11:23 Pulse Ox 99 03/21/23 11:23 FiO2 Intake & Output 03/20/23 03/21/23 03/21/23 18:59 06:59 18:59 Intake Total 1074 540 Output Total 100 Balance 974 540 Intake: Intake, IV Titration 630 Amount Sodium Chloride 0.9% 1, 130 000 ml @ 130 mls/hr IV . Q7H42M [facility] Rx#:[id number] Sodium Chloride 0.9% 500 500 ml 500 ml @ 999 mls/hr IV .Q31M [facility] Rx#:[id number] Oral 444 540 Output: Urine 100 Other: Voiding Method External Catheter External Catheter Diaper External Catheter # Voids 1 2 1 # Bowel Movements 1 2 - Labs CBC & Chem 7: 03/22/23 09:10 03/22/23 09:10 Labs: Abnormal Lab Results - Last 24 Hours (Table) 03/20/23 03/20/23 03/20/23 Range/Units 13:19 13:19 13:19 WBC (3.8-10.6) k/uL RBC (3.80-5.40) m/uL Hgb (11.4-16.0) gm/dL Hct (34.0-46.0) % Neutrophils # (1.3-7.7) k/uL Lymphocytes # (1.0-4.8) k/uL Retic Count 2.7 H (0.5-2.0) % Sodium (137-145) mmol/L Chloride (98-107) mmol/L Carbon Dioxide (22-30) mmol/L Glucose (74-99) mg/dL Calcium (8.4-10.2) mg/dL Iron 24 L (50-170) UG/DL TIBC 196 L (228-460) UG/DL Transferrin 140.0 L (204.0-354.0) mg/dL Ferritin 731.0 H (10.0-291.0) ng/mL AST (14-36) U/L ALT (4-34) U/L C-Reactive Protein 23.6 H (<1.0) mg/dL Total Protein (6.3-8.2) g/dL Albumin (3.5-5.0) g/dL Procalcitonin 0.42 H (0.02-0.09) ng/mL 03/21/23 03/21/23 Range/Units 10:06 10:06 WBC 15.6 H (3.8-10.6) k/uL RBC 3.02 L (3.80-5.40) m/uL Hgb 9.0 L (11.4-16.0) gm/dL Hct 28.3 L (34.0-46.0) % Neutrophils # 13.6 H (1.3-7.7) k/uL Lymphocytes # 0.8 L (1.0-4.8) k/uL Retic Count (0.5-2.0) % Sodium 133 L (137-145) mmol/L Chloride 108 H (98-107) mmol/L Carbon Dioxide 20 L (22-30) mmol/L Glucose 115 H (74-99) mg/dL Calcium 8.3 L (8.4-10.2) mg/dL Iron (50-170) UG/DL TIBC (228-460) UG/DL Transferrin (204.0-354.0) mg/dL Ferritin (10.0-291.0) ng/mL AST 48 H (14-36) U/L ALT 39 H (4-34) U/L C-Reactive Protein (<1.0) mg/dL Total Protein 5.6 L (6.3-8.2) g/dL Albumin 2.2 L (3.5-5.0) g/dL Procalcitonin (0.02-0.09) ng/mL Microbiology - Last 24 Hours (Table) 03/20/23 13:19 Blood Culture Gram Stain - Preliminary Blood 03/20/23 13:19 Blood Culture Gram Stain - Preliminary Blood
[2023-03-22] MEDS: VANCOMYCIN 750 MG in SODIUM CHLORIDE 0.9% 250 ML IVPB SCH ×2 (12:20→23:57)
[2023-03-22] MEDS: lisinopriL 5 MG TAB PO SCH (12:23)
--- NOTE | 2023-03-22 12:56 | P.PN ---
Subjective Progress Note Date: 03/22/23 Principal diagnosis: Enterococcus faecalis bacteremia Patient is a 72-year-old female with a past medical history significant for kidney cancer status post removal of the right kidney anxiety depression presenting to the hospital for evaluation of weakness and fall did have low-grade fever vomiting this infection disease consultation. On today's evaluation that is 03/22/2023, the patient remains to be afebrile the patient is breathing comfortably on room air and not requiring supplemental oxygen, the patient denies chest pain and no significant cough, patient denies abdominal pain and no nausea/vomiting or diarrhea , pt is more awake and alert today Patient is a white count of 15.5, creatinine 0.65 blood culture with Enterococcus faecalis significant abnormality on the CT of abdominal pelvis which was reviewed Objective - Vital Signs Vital signs: Vital Signs Temp 98.1 F 03/22/23 08:20 Pulse 91 03/22/23 08:20 Resp 17 03/22/23 08:20 BP 130/73 03/22/23 08:20 Pulse Ox 94 L 03/22/23 08:20 FiO2 Intake & Output 03/21/23 03/22/23 03/22/23 18:59 06:59 18:59 Intake Total 540 540 126 Balance 540 540 126 Intake: Oral 540 540 126 Other: Voiding Method Diaper Diaper Diaper External Catheter # Voids 1 3 # Bowel Movements 1 - Exam GENERAL DESCRIPTION: An elderly female lying in bed in no distress RESPIRATORY SYSTEM: Unlabored breathing , decreased breath sounds at bases HEART: S1 S2 regular rate and rhythm , ABDOMEN: Soft , no tenderness EXTREMITIES: No edema feet - Labs CBC & Chem 7: 03/22/23 09:10 03/22/23 09:10 Labs: Abnormal Lab Results - Last 24 Hours (Table) 03/21/23 03/21/23 03/21/23 Range/Units 10:06 10:06 19:16 WBC 15.6 H 13.4 H (3.8-10.6) k/uL RBC 3.02 L 2.85 L (3.80-5.40) m/uL Hgb 9.0 L 8.5 L (11.4-16.0) gm/dL Hct 28.3 L 26.1 L (34.0-46.0) % Neutrophils # 13.6 H 11.4 H (1.3-7.7) k/uL Lymphocytes # 0.8 L (1.0-4.8) k/uL APTT (22.0-30.0) sec Sodium 133 L (137-145) mmol/L Chloride 108 H (98-107) mmol/L Carbon Dioxide 20 L (22-30) mmol/L Glucose 115 H (74-99) mg/dL Calcium 8.3 L (8.4-10.2) mg/dL AST 48 H (14-36) U/L ALT 39 H (4-34) U/L Total Protein 5.6 L (6.3-8.2) g/dL Albumin 2.2 L (3.5-5.0) g/dL 03/21/23 03/22/23 Range/Units 19:16 09:10 WBC 15.5 H (3.8-10.6) k/uL RBC 2.92 L (3.80-5.40) m/uL Hgb 8.6 L (11.4-16.0) gm/dL Hct 27.5 L (34.0-46.0) % Neutrophils # 13.9 H (1.3-7.7) k/uL Lymphocytes # 0.7 L (1.0-4.8) k/uL APTT 48.3 H (22.0-30.0) sec Sodium (137-145) mmol/L Chloride (98-107) mmol/L Carbon Dioxide (22-30) mmol/L Glucose (74-99) mg/dL Calcium (8.4-10.2) mg/dL AST (14-36) U/L ALT (4-34) U/L Total Protein (6.3-8.2) g/dL Albumin (3.5-5.0) g/dL Microbiology - Last 24 Hours (Table) 03/20/23 13:19 Blood Culture Gram Stain - Preliminary Blood 03/20/23 13:19 Blood Culture Gram Stain - Preliminary Blood Assessment and Plan (1) Bacteremia Current Visit: Yes Status: Acute Code(s): R78.81 - BACTEREMIA SNOMED Code(s): 9279752 (2) Allergy to multiple antibiotics Current Visit: Yes Status: Acute Code(s): Z88.1 - ALLERGY STATUS TO OTHER ANTIBIOTIC AGENTS SNOMED Code(s): 021703456 Plan: 1patient with a low-grade fever in this patient presented to hospital with a fall and weakness and apparently has becoming more forgetful over the last few weeks some confusion has been noticed patient initial work-up including a UA c hest x-ray has been negative no evidence of any cellulitis or joint swelling no neck rigidity was noticed, patient workup did include blood cultures came back positive for Enterococcus faecalis and the patient also have significant abnormality on the CT abdominal pelvis with concern for acute thrombophlebitis 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 please excuse any grammatical, word or spelling errors. Time with Patient: Less than 30
--- NOTE | 2023-03-22 13:08 | P.PN ---
Subjective Progress Note Date: 03/22/23 HISTORY OF PRESENT ILLNESS This is a 72-year-old female with past medical history of hyperlipidemia, fibro myalgia, gastroesophageal reflux disease, congenital insufficiency of the aortic valve, vitamin D deficiency, ALLERGIC rhinitis, mild intermittent asthma, major depressive disorder. Patient apparently passed out while in the bathroom found on the floor. For the past couple months she has had difficulty with ambulation due to weakness can hardly walk. Her states that she was incoherent and confused yesterday. Weakness has continued and she has had workup outpatient. She was seen by Dr. Mosley in the office on 03/03 and everything seemed stable at that time. She has a scheduled MRI of the brain on Friday. Patient has no previous history of atrial fibrillation. Patient has been seen by cardiology and started on eliquis and metoprolol for atrial fibrillation with plan for possible MAUREEN and electrical cardioversion tomorrow patient does not convert to sinus rhythm overnight 03/20: Patient is confused, she converted to normal sinu rhthm overnight and she has had low grad temperature, had blood cultures and urine cultures and she was seen in consultation by Neurology who recommended MRI of the brain with and without DOUG, her sister in law is here and she was updated about her current condition, consulted ID for possible infectious etiology especially with AI on TTE, and she may well need MAUREEN for further evaluation, patient current condition could be stemming from poaroxysmal atrial fibrillation that can definitely create thromboemblic phenomenon, and possible ischemic disease, we will continue to monitor very closely and her prognosis is guarded. she will need to ve LP for further evaluation 03/21: Patient was more awake today and she underwent MRI of the brain that did show evidence of scattered foci of microinfarcts in bilateral frontal lobes, occipital lobes, cerebellum and right caudate nucleus suggestive of embolic stroke, patient also was found to have severe Aortic stenosis and moderate AI on TTE and she will undergo MAUREEN for possible septic emboli also she underwent CT Abdomen and pelvis that showed PAD with possible thrombophlebitis was seen by Vascular surgery who recommended no intervention at this point, blood cultures showed Enterococcus and IDS started the patient on Vancomycin as she is allergic to PCN, Cardiothoracic surgery was added as well 03/22: Patient is laying down in bed she continues to be a bit confused, better than yesterday, I reviewed the results of the MRI of the brain with her and her family including her and her daughter at the bedside, as well as the blood cultures and I discussed the case with Dr. 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 Mosley, we'll continue to monitor the patient very closely her prognosis continues to be very guarded. REVIEW OF SYSTEMS Constitutional: low grade fever, no chills, positive for night sweats. positive for weight change. + weakness, +fatigue + lethargy. daytime sleepiness. HEENT: No headache. No blurred vision or double vision, no loss of vision. No loss of Hearing, no ringing in the ears, no dizziness. No nasal drainage or congestion. No epistaxis. No sore throat. Lungs: positive for shortness of breath, cough, no sputum production. No wheezing. Cardiovascular: No chest pain, no lower extremity edema. positive for palpitations. No paroxysmal nocturnal dyspnea. No orthopnea, positive for dizziness and syncope. Abdominal: No abdominal pain. No nausea, vomiting. No diarrhea. No constipation. No bloody or tarry stools. No loss of appetite. Genitourinary: No dysuria, increased frequency, urgency. No urinary retention. Musculoskeletal: No myalgias. + muscle weakness, + frequent falls. No back pain. No neck pain. Integumentary: No wounds, no lesions. No rash or pruritus. No unusual bruising. No change in hair or nails. Neurologic: No aphasia. No facial droop. No change in mentation. No head injury. No headache. No paralysis. No paresthesia. Psychiatric: No depression. No anxiety. No mood swings. Endocrine: No abnormal blood sugars. No weight change. No excessive sweating or thirst. No cold intolerance. PHYSICAL EXAMINATION Gen: This is a frail-appearing 72-year-old female appears confused HEENT: Head is atraumatic, normocephalic. Pupils equal, round. Sclerae is anicteric. Oral mucous membranes are slightly dry. NECK: Supple. No JVD. No lymphadenopathy. No thyromegaly. LUNGS: Clear to auscultation. No wheezes or rhonchi. No intercostal retractions. HEART: First heart sound is depressed , second heart sound is normal there is GINA 2/6 located at the left sternl border , positive for diastolic murmur at the right second intercostal space ABDOMEN: Soft. Bowel sounds are present. No masses. No tenderness. EXTREMITIES: No pedal edema. No calf tenderness.DP +1 bilaterally NEUROLOGICAL: Patient is awake, alert and oriented x1. Cranial nerves 2 through 12 are grossly intact, patient is moving all her extremities. ASSESSMENT AND PLAN 1. New onset of atrial fibrillation, paroxysmal. patient was switched to Heparin drip and was taken off Eliquis and she will be maintained on Metoprolol 25 mg po bid and scheduled for MAUREEN on Friday for possible Endocarditis. 2. 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 we will continue with heparin drip, we will continue with Atorvastatin, going for MAUREEN on Friday for possible Endocarditis and septic emboli, 3. Valvular heart disease status post aortic valve replacement with bioprosthetic valve. Echocardiogram has been obtained which reveals LVH with preserved systolic function. Mildly enlarged right ventricle. Bioprosthetic valve gradient seems significantly elevated. Suboptimal visualization of the aortic valve. MAUREEN on Friday 4. Enterococcus Bacteremia. likely related to Endocarditis.we will continue with Vancomycin and she is going for MAUREEN on Friday 5. Dyslipidemia. Continue patient on atorvastatin 40 mg at bedtime. 6. Gastroesophageal reflux disease and GI prophylaxis. Continue Pepcid 40 mg at bedtime and Protonix 40 mg daily. 7. Recurrent depression. Continue Venlafaxine ER 300 mg po daily 8. Fibromyalgia. Continue gabapentin 300 mg 3 times daily as needed. 9. DVT prophylaxis. continue with heparin drip 10. GI prophylaxis. continue Protonix 40 mg po daily. 11. Anemia of unclear etiology. we will check labs 12. Guarded prognosis Objective - Vital Signs Vital signs: Vital Signs Temp 98.1 F 03/22/23 08:20 Pulse 91 03/22/23 08:20 Resp 17 03/22/23 08:20 BP 130/73 03/22/23 08:20 Pulse Ox 94 L 03/22/23 08:20 FiO2 Intake & Output 03/21/23 03/22/23 03/22/23 18:59 06:59 18:59 Intake Total 540 540 226.185 Balance 540 540 226.185 Intake: Intake, IV Titration 100.185 Amount Heparin Sod,Pork in 0.45% 100.185 NaCl 25,000 unit In 0.45 % NaCl 1 250ml.bag @ 12 UNITS/KG/HR 6.151 mls/hr IV .Q24H [facility] Rx#: [id number] Oral 540 540 126 Other: Voiding Method Diaper Diaper Diaper External Catheter # Voids 1 3 # Bowel Movements 1 - Labs CBC & Chem 7: 03/22/23 09:10 03/22/23 09:10 Labs: Abnormal Lab Results - Last 24 Hours (Table) 03/21/23 03/21/23 03/21/23 Range/Units 10:06 19:16 19:16 WBC 13.4 H (3.8-10.6) k/uL RBC 2.85 L (3.80-5.40) m/uL Hgb 8.5 L (11.4-16.0) gm/dL Hct 26.1 L (34.0-46.0) % Neutrophils # 11.4 H (1.3-7.7) k/uL Lymphocytes # (1.0-4.8) k/uL APTT 48.3 H (22.0-30.0) sec HDL Cholesterol 31.40 L (40.00-60.00) mg/dL 03/22/23 03/22/23 Range/Units 09:10 09:10 WBC 15.5 H (3.8-10.6) k/uL RBC 2.92 L (3.80-5.40) m/uL Hgb 8.6 L (11.4-16.0) gm/dL Hct 27.5 L (34.0-46.0) % Neutrophils # 13.9 H (1.3-7.7) k/uL Lymphocytes # 0.7 L (1.0-4.8) k/uL APTT 34.8 H (22.0-30.0) sec HDL Cholesterol (40.00-60.00) mg/dL Microbiology - Last 24 Hours (Table) 03/20/23 13:19 Blood Culture Gram Stain - Preliminary Blood Blood Culture - Preliminary Group D Enterococcus 03/20/23 13:19 Blood Culture Gram Stain - Preliminary Blood Blood Culture - Preliminary Group D Enterococcus
--- NOTE | 2023-03-22 15:13 | P.PN ---
Subjective Progress Note Date: 03/22/23 Patient seen and examined. Doing well today. Denies any pain in the lower extremity. Denies any fevers, chills, chest pain or shortness of breath. Objective - Vital Signs Vital signs: Vital Signs Temp 98.1 F 03/22/23 08:20 Pulse 80 03/22/23 12:15 Resp 17 03/22/23 12:15 BP 130/69 03/22/23 12:15 Pulse Ox 95 03/22/23 12:15 FiO2 Intake & Output 03/21/23 03/22/23 03/22/23 18:59 06:59 18:59 Intake Total 540 540 286.185 Output Total 200 Balance 540 540 86.185 Intake: Intake, IV Titration 100.185 Amount Heparin Sod,Pork in 0.45% 100.185 NaCl 25,000 unit In 0.45 % NaCl 1 250ml.bag @ 12 UNITS/KG/HR 6.151 mls/hr IV .Q24H [facility] Rx#: [id number] Oral 540 540 186 Output: Urine 200 Other: Voiding Method Diaper Diaper Diaper External Catheter # Voids 1 3 2 # Bowel Movements 1 2 - Exam palpable femoral pulses bilaterally palpable dp and pt pulse on the right. Non palpable dp and pt pulse on the left slow capillary refill left. No tenderness to palpation. - Constitutional General appearance: Present: average body habitus - Labs CBC & Chem 7: 03/22/23 09:10 03/22/23 09:10 Labs: Abnormal Lab Results - Last 24 Hours (Table) 03/21/23 03/21/23 03/21/23 Range/Units 10:06 19:16 19:16 WBC 13.4 H (3.8-10.6) k/uL RBC 2.85 L (3.80-5.40) m/uL Hgb 8.5 L (11.4-16.0) gm/dL Hct 26.1 L (34.0-46.0) % Neutrophils # 11.4 H (1.3-7.7) k/uL Lymphocytes # (1.0-4.8) k/uL APTT 48.3 H (22.0-30.0) sec HDL Cholesterol 31.40 L (40.00-60.00) mg/dL 03/22/23 03/22/23 Range/Units 09:10 09:10 WBC 15.5 H (3.8-10.6) k/uL RBC 2.92 L (3.80-5.40) m/uL Hgb 8.6 L (11.4-16.0) gm/dL Hct 27.5 L (34.0-46.0) % Neutrophils # 13.9 H (1.3-7.7) k/uL Lymphocytes # 0.7 L (1.0-4.8) k/uL APTT 34.8 H (22.0-30.0) sec HDL Cholesterol (40.00-60.00) mg/dL Microbiology - Last 24 Hours (Table) 03/20/23 13:19 Blood Culture Gram Stain - Preliminary Blood Blood Culture - Preliminary Group D Enterococcus 03/20/23 13:19 Blood Culture Gram Stain - Preliminary Blood Blood Culture - Preliminary Group D Enterococcus Assessment and Plan Assessment: 1. 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 Generalized weakness 3. Altered mental status changes 4. Positive blood cultures 5. New onset atrial fibrillation on Eliquis 5mg BID 6. History of aortic valve replacement 7. History of right nephrectomy Plan: 1. Continue Eliquis 2. Continue IV antibiotics 3. Discussed with the patient options for treatment of the left arterial thrombus which would require either percutaneous thrombectomy vs. open thrombectomy due to the size of the thrombus. 4. Will wait for TAVR workup to be completed and will follow with you.
[2023-03-22] MEDS: SODIUM CHLORIDE 0.9% 1,000 ML IV SCH (16:21)
--- NOTE | 2023-03-22 17:27 | XR ---
EXAMINATION TYPE: XR chest 1V DATE OF EXAM: 03/22/2023 5:22 PM CLINICAL INDICATION:Female, 72 years old with history of SOB, wheezing. COMPARISON: Chest radiographs from TECHNIQUE: XR chest 1V Frontal view of the chest. FINDINGS: Lungs/Pleura: There is interval development of bilateral hazy airspace opacities within the lower nain gs. No evidence of pleural effusion or pneumothorax. Pulmonary vascularity: Unremarkable. Heart/mediastinum: Cardiomediastinal silhouette is unremarkable. Musculoskeletal: No acute osseous pathology. IMPRESSION: Bilateral multifocal airspace disease.
--- NOTE | 2023-03-22 17:48 | P.PN ---
Subjective Progress Note Date: 03/22/23 Progress note 03/21/2023 As a part of her confusion evaluation patient had an extensive workup. Her blood cultures came back positive for possible enterococcus bacteremia. She also has low-grade fevers. CT abdomen showed possible thrombus and right common femoral artery. She has intact pulses in bilateral lower extremity. She denies having any chest pain chest pressure. She is in sinus rhythm. She is hemodynamically stable. MRI brain showed possible embolic strokes. 03/22/2023 Hemodynamics stable, hemoglobin 8.4, creatinine is stable No new further neurological changes History of present illness: History of present illness: This is a 72-year-old female patient Dr. Mosley a past medical history of valvular heart disease status post aortic valve replacement using bioprosthetic valve, dyslipidemia. We have been asked to evaluate the patient for weakness and elev ated troponins. History is obtained from the patient and her . Patient apparently passed out while in the bathroom found on the floor. For the past couple months she has had difficulty with ambulation due to weakness can hardly walk. Her states that she was incoherent and confused yesterday. Weakness has continued and she has had workup outpatient. She was seen by Dr. Mosley in the office on 03/03 and everything seems stable at that time. She has a scheduled MRI of the brain on Friday. Patient has no previous history of atrial fibrillation. Physical examination: Gen: This is a 72-year-old female. She is resting on ER stretcher. To be in no acute distress.] VS: reviewed HEENT: Head is atraumatic, normocephalic. Pupils equal, round. Sclerae is anicteric. NECK: Supple. No JVD. . LUNGS: Clear to auscultation. No wheezes or rhonchi. No intercostal retractio ns. HEART: Irregular rate and rhythm. Systolic murmur. ABDOMEN: Soft No tenderness. EXTREMITIES: No pedal edema. No calf tenderness. NEUROLOGICAL: Patient is awake, alert and oriented x3. Assessment: New-onset if atrial fibrillation, status post spontaneous cardioversion. Atrial fibrillation is new on this admission. This is likely due to increased and her cardiac pressures from aorta stenosis and aortic regurgitation. Embolic stroke, MRI showed scattered foci embolic stroke throughout the cerebrum. Gram-positive cocci septicemia with low-grade fevers Concerns of septic embolization. Other differential includes embolic stroke from atrial fibrillation. Mixed aortic valve disease with moderate aortic regurgitation and severe aortic stenosis. Pressure half time is around 400 msec. This puts her at moderate aortic regurgitation. VTI ratio is >0.3 and AT <100 msec. this puts her in the category of high flow state and patient processes mismatch. Status post bioprosthetic aortic valve, TAVR in 2017 in [facility] Dyslipidemia Plan: Continue low-grade IV heparin without bolus with repeatedly of around 40-50. Monitor for any changes in mental status. If there is any acute changes, obtain CT head to look for any hemorrhagic transformation of the stroke. Continue IV antibiotics, consult infectious disease Continue metoprolol to 25 mg twice a day Continue lisinopril 5 mg daily to reduce afterload Obtain MAUREEN on Friday with Dr Mosley Objective - Vital Signs Vital signs: Vital Signs Temp 98.1 F 03/22/23 08:20 Pulse 82 03/22/23 16:16 Resp 17 03/22/23 16:16 BP 133/72 03/22/23 16:16 Pulse Ox 94 L 03/22/23 16:16 FiO2 Intake & Output 03/21/23 03/22/23 03/22/23 18:59 06:59 18:59 Intake Total 540 540 331.288 Output Total 200 Balance 540 540 131.288 Intake: Intake, IV Titration 145.288 Amount Heparin Sod,Pork in 0.45% 145.288 NaCl 25,000 unit In 0.45 % NaCl 1 250ml.bag @ 12 UNITS/KG/HR 6.151 mls/hr IV .Q24H [facility] Rx#: [id number] Oral 540 540 186 Output: Urine 200 Other: Voiding Method Diaper Diaper Diaper External Catheter # Voids 1 3 2 # Bowel Movements 1 2 - Labs CBC & Chem 7: 03/22/23 09:10 03/22/23 09:10 Labs: Abnormal Lab Results - Last 24 Hours (Table) 03/21/23 03/21/23 03/21/23 Range/Units 10:06 19:16 19:16 WBC 13.4 H (3.8-10.6) k/uL RBC 2.85 L (3.80-5.40) m/uL Hgb 8.5 L (11.4-16.0) gm/dL Hct 26.1 L (34.0-46.0) % Neutrophils # 11.4 H (1.3-7.7) k/uL Lymphocytes # (1.0-4.8) k/uL APTT 48.3 H (22.0-30.0) sec HDL Cholesterol 31.40 L (40.00-60.00) mg/dL 03/22/23 03/22/23 03/22/23 Range/Units 09:10 09:10 15:28 WBC 15.5 H (3.8-10.6) k/uL RBC 2.92 L (3.80-5.40) m/uL Hgb 8.6 L (11.4-16.0) gm/dL Hct 27.5 L (34.0-46.0) % Neutrophils # 13.9 H (1.3-7.7) k/uL Lymphocytes # 0.7 L (1.0-4.8) k/uL APTT 34.8 H 37.1 H (22.0-30.0) sec HDL Cholesterol (40.00-60.00) mg/dL Microbiology - Last 24 Hours (Table) 03/21/23 16:25 Nasal Screen MRSA/MSSA - Final Nasal Swab 03/20/23 13:19 Blood Culture Gram Stain - Preliminary Blood Blood Culture - Preliminary Group D Enterococcus 03/20/23 13:19 Blood Culture Gram Stain - Preliminary Blood Blood Culture - Preliminary Group D Enterococcus
[2023-03-22] MEDS: HEPARIN SOD,PORK IN 0.45% NACL 25,000 UNIT in 0.45% NACL 1 250ML.BAG IV SCH (18:19)
[2023-03-22] MEDS: MELATONIN 3 MG TABLET PO SCH (19:57)
[2023-03-22] MEDS: ATORVASTATIN 40 MG TAB PO SCH (19:58)
[2023-03-23] MEDS: HEPARIN SOD,PORK IN 0.45% NACL 25,000 UNIT in 0.45% NACL 1 250ML.BAG IV SCH (02:21)
[2023-03-23] MEDS: ALBUTEROL NEBULIZED 2.5 MG/3 ML INHALATION PRN ×2 (05:44→22:02)
[2023-03-23] MEDS: PANTOPRAZOLE 40 MG TABLET PO SCH (07:04)
[2023-03-23 08:47] LABS: Basophils % (A) 0 %; Eosinophils # (A) 0.2 k/uL (0-0.7); Eosinophils % (A) 1 %; HCT 27.3 % (34.0-46.0); HGB 8.5 gm/dL (11.4-16.0); Hypochromasia Moderate; Lymphocytes # (A) 0.8 k/uL (1.0-4.8); Lymphocytes % (A) 6 %; MCH 29.4 pg (25.0-35.0); MCHC 31.3 g/dL (31.0-37.0); MCV 93.8 fL (80.0-100.0); Mean Platelet Volume 7.6; Monocytes # (A) 0.6 k/uL (0-1.0); Monocytes % (A) 4 %; Neutrophils # (A) 11.2 k/uL (1.3-7.7); Neutrophils % (A) 85 %; Platelet Count 411 k/uL (150-450); RBC 2.91 m/uL (3.80-5.40); RDW 14.5 % (11.5-15.5); WBC 13.1 k/uL (3.8-10.6)
[2023-03-23 08:57] LABS: ALT 40 U/L (4-34); AST 44 U/L (14-36); African American GFR (CKD) >90 (>60 ml/min/1.73 sqM); Albumin 2.1 g/dL (3.5-5.0); Alkaline Phosphatase 84 U/L (38-126); Anion Gap 7 mmol/L; Blood Urea Nitrogen 8 mg/dL (7-17); Calcium 8.4 mg/dL (8.4-10.2); Carbon Dioxide 17 mmol/L (22-30); Chloride 111 mmol/L (98-107); Glucose 131 mg/dL (74-99); Non-African American GFR(CKD) 90 (>60 ml/min/1.73 sqM); Potassium 3.7 mmol/L (3.5-5.1); Sodium 135 mmol/L (137-145); Total Bilirubin 0.3 mg/dL (0.2-1.3); Total Protein 5.4 g/dL (6.3-8.2)
[2023-03-23 09:01] LABS: African American GFR (CKD) >90 (>60 ml/min/1.73 sqM); Non-African American GFR(CKD) >90 (>60 ml/min/1.73 sqM)
[2023-03-23] MEDS: VITAMIN E (DL,TOCOPHERYL ACET) 400 UNIT (180 MG) CAP PO SCH (09:07)
[2023-03-23] MEDS: MULTIVITAMINS, THERA 1 EACH TAB PO SCH (09:07)
[2023-03-23] MEDS: VENLAFAXINE HCL ER 150 MG CAP PO SCH (09:07)
[2023-03-23] MEDS: METOPROLOL TARTRATE 25 MG TAB PO SCH ×2 (09:08→21:11)
[2023-03-23] MEDS: ASCORBIC ACID 500 MG TAB PO SCH (09:08)
[2023-03-23] MEDS: CHOLECALCIFEROL 25 MCG (1000 IU) TABLET PO SCH (09:08)
[2023-03-23] MEDS: LOSARTAN 25 MG TAB PO SCH (09:08)
[2023-03-23] MEDS ORDERED: FUROSEMIDE 10 MG/ML 4 ML VIAL IV STA ×2 (09:21→22:46)
[2023-03-23] MEDS: SODIUM CHLORIDE 0.9% 1,000 ML IV SCH (09:26)
--- NOTE | 2023-03-23 10:38 | P.PN ---
Subjective Progress Note Date: 03/23/23 HISTORY OF PRESENT ILLNESS This is a 72-year-old female with past medical history of hyperlipidemia, fibro myalgia, gastroesophageal reflux disease, congenital insufficiency of the aortic valve, vitamin D deficiency, ALLERGIC rhinitis, mild intermittent asthma, major depressive disorder. Patient apparently passed out while in the bathroom found on the floor. For the past couple months she has had difficulty with ambulation due to weakness can hardly walk. Her states that she was incoherent and confused yesterday. Weakness has continued and she has had workup outpatient. She was seen by Dr. Mosley in the office on 03/03 and everything seemed stable at that time. She has a scheduled MRI of the brain on Friday. Patient has no previous history of atrial fibrillation. Patient has been seen by cardiology and started on eliquis and metoprolol for atrial fibrillation with plan for possible MAUREEN and electrical cardioversion tomorrow patient does not convert to sinus rhythm overnight 03/20: Patient is confused, she converted to normal sinu rhthm overnight and she has had low grad temperature, had blood cultures and urine cultures and she was seen in consultation by Neurology who recommended MRI of the brain with and without DOUG, her sister in law is here and she was updated about her current condition, consulted ID for possible infectious etiology especially with AI on TTE, and she may well need MAUREEN for further evaluation, patient current condition could be stemming from poaroxysmal atrial fibrillation that can definitely create thromboemblic phenomenon, and possible ischemic disease, we will continue to monitor very closely and her prognosis is guarded. she will need to ve LP for further evaluation 03/21: Patient was more awake today and she underwent MRI of the brain that did show evidence of scattered foci of microinfarcts in bilateral frontal lobes, occipital lobes, cerebellum and right caudate nucleus suggestive of embolic stroke, patient also was found to have severe Aortic stenosis and moderate AI on TTE and she will undergo MAUREEN for possible septic emboli also she underwent CT Abdomen and pelvis that showed PAD with possible thrombophlebitis was seen by Vascular surgery who recommended no intervention at this point, blood cultures showed Enterococcus and IDS started the patient on Vancomycin as she is allergic to PCN, Cardiothoracic surgery was added as well 03/22: Patient is laying down in bed she continues to be a bit confused, better than yesterday, I reviewed the results of the MRI of the brain with her and her family including her and her daughter at the bedside, as well as the blood cultures and I discussed the case with Dr. 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 Mosley, we'll continue to monitor the patient very closely her prognosis continues to be very guarded. 03/23: Patient sitting up in bed she is complaining of increased shortness of b reath, increased coughing, she did receive 1 dose of Lasix 40 mg IV push 1, chest x-ray showed multilobar opacities I believe the patient is at high risk for septic emboli we'll continue with current IV antibiotic, we'll continue to monitor the patient very closely, patient is scheduled to go for a transesophageal echocardiogram tomorrow morning for further evaluation of her bioprosthetic aortic valve. REVIEW OF SYSTEMS Constitutional: low grade fever, no chills, positive for night sweats. positive for weight change. + weakness, +fatigue + lethargy. daytime sleepiness. HEENT: No headache. No blurred vision or double vision, no loss of vision. No loss of Hearing, no ringing in the ears, no dizziness. No nasal drainage or congestion. No epistaxis. No sore throat. Lungs: positive for shortness of breath, cough, no sputum production. positive for wheezing. Cardiovascular: No chest pain, no lower extremity edema. positive for palpitations. No paroxysmal nocturnal dyspnea. No orthopnea, positive for dizziness and syncope. Abdominal: No abdominal pain. No nausea, vomiting. No diarrhea. No constipation. No bloody or tarry stools. No loss of appetite. Genitourinary: No dysuria, increased frequency, urgency. No urinary retention. Musculoskeletal: No myalgias. + muscle weakness, + frequent falls. No back pain. No neck pain. Integumentary: No wounds, no lesions. No rash or pruritus. No unusual bruising. No change in hair or nails. Neurologic: No aphasia. No facial droop. No change in mentation. No head injury. No headache. No paralysis. No paresthesia. Psychiatric: No depression. No anxiety. No mood swings. Endocrine: No abnormal blood sugars. No weight change. No excessive sweating or thirst. No cold intolerance. PHYSICAL EXAMINATION Gen: This is a frail-appearing 72-year-old female appears confused HEENT: Head is atraumatic, normocephalic. Pupils equal, round. Sclerae is anicteric. Oral mucous membranes are slightly dry. NECK: Supple. No JVD. No lymphadenopathy. No thyromegaly. LUNGS: Decreased breath sounds at the bases, few rhonchi, minimal expiratory wheezes, minimal intercostal retractions. HEART: First heart sound is depressed , second heart sound is normal there is GINA 2/6 located at the left sternal border , positive for diastolic murmur at the right second intercostal space ABDOMEN: Soft. Bowel sounds are present. No masses. No tenderness. EXTREMITIES: No pedal edema. No calf tenderness.DP +1 bilaterally NEUROLOGICAL: Patient is awake, alert and oriented x3 . Cranial nerves 2 through 12 are grossly intact, patient is moving all her extremities. ASSESSMENT AND PLAN 1. New onset of atrial fibrillation, paroxysmal. patient was switched to Heparin drip and was taken off Eliquis and she will be maintained on Metoprolol 25 mg po bid and scheduled for MAUREEN on Friday for possible Endocarditis. 2. 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 we will continue with heparin drip, we will continue with Atorvastatin, going for MAUREEN on Friday for possible Endocarditis and septic emboli, 3. Valvular heart disease status post aortic valve replacement with bioprosthetic valve. Echocardiogram has been obtained which reveals LVH with preserved systolic function. Mildly enlarged right ventricle. Bioprosthetic valve gradient seems significantly elevated. Suboptimal visualization of the aortic valve. MAUREEN on Friday 4. Enterococcus Bacteremia. likely related to Endocarditis.we will continue with Vancomycin and she is going for MAUREEN on Friday 5. Dyslipidemia. Continue patient on atorvastatin 40 mg at bedtime. 6. Gastroesophageal reflux disease and GI prophylaxis. Continue Pepcid 40 mg at bedtime and Protonix 40 mg daily. 7. Recurrent depression. Continue Venlafaxine ER 300 mg po daily 8. Fibromyalgia. Continue gabapentin 300 mg 3 times daily as needed. 9. DVT prophylaxis. continue with heparin drip 10. GI prophylaxis. continue Protonix 40 mg po daily. 11. Anemia of unclear etiology. Colonoscopy is up-to-date 12. guarded prognosis. Objective - Vital Signs Vital signs: Vital Signs Temp 97.6 F 03/23/23 09:05 Pulse 79 03/23/23 09:05 Resp 17 03/23/23 09:05 BP 141/77 03/23/23 09:05 Pulse Ox 100 03/23/23 09:05 FiO2 Intake & Output 03/22/23 03/23/23 03/23/23 18:59 06:59 18:59 Intake Total 468.426 70.002 240 Output Total 200 Balance 268.426 70.002 240 Intake: Intake, IV Titration 162.426 70.002 Amount Heparin Sod,Pork in 0.45% 162.426 70.002 NaCl 25,000 unit In 0.45 % NaCl 1 250ml.bag @ 12 UNITS/KG/HR 6.151 mls/hr IV .Q24H [facility] Rx#: [id number] Oral 306 0 240 Output: Urine 200 Other: Voiding Method Diaper Diaper Diaper # Voids 2 1 # Bowel Movements 2 - Labs CBC & Chem 7: 03/23/23 07:50 03/23/23 07:50 Labs: Abnormal Lab Results - Last 24 Hours (Table) 03/21/23 03/22/23 03/22/23 Range/Units 10:06 09:10 09:10 WBC 15.5 H (3.8-10.6) k/uL RBC 2.92 L (3.80-5.40) m/uL Hgb 8.6 L (11.4-16.0) gm/dL Hct 27.5 L (34.0-46.0) % Neutrophils # 13.9 H (1.3-7.7) k/uL Lymphocytes # 0.7 L (1.0-4.8) k/uL APTT 34.8 H (22.0-30.0) sec Sodium (137-145) mmol/L Chloride (98-107) mmol/L Carbon Dioxide (22-30) mmol/L Glucose (74-99) mg/dL AST (14-36) U/L ALT (4-34) U/L Total Protein (6.3-8.2) g/dL Albumin (3.5-5.0) g/dL HDL Cholesterol 31.40 L (40.00-60.00) mg/dL 03/22/23 03/22/23 03/23/23 Range/Units 15:28 22:26 07:50 WBC 13.1 H (3.8-10.6) k/uL RBC 2.91 L (3.80-5.40) m/uL Hgb 8.5 L (11.4-16.0) gm/dL Hct 27.3 L (34.0-46.0) % Neutrophils # 11.2 H (1.3-7.7) k/uL Lymphocytes # 0.8 L (1.0-4.8) k/uL APTT 37.1 H 57.5 H (22.0-30.0) sec Sodium (137-145) mmol/L Chloride (98-107) mmol/L Carbon Dioxide (22-30) mmol/L Glucose (74-99) mg/dL AST (14-36) U/L ALT (4-34) U/L Total Protein (6.3-8.2) g/dL Albumin (3.5-5.0) g/dL HDL Cholesterol (40.00-60.00) mg/dL 03/23/23 03/23/23 Range/Units 07:50 07:50 WBC (3.8-10.6) k/uL RBC (3.80-5.40) m/uL Hgb (11.4-16.0) gm/dL Hct (34.0-46.0) % Neutrophils # (1.3-7.7) k/uL Lymphocytes # (1.0-4.8) k/uL APTT 52.7 H (22.0-30.0) sec Sodium 135 L (137-145) mmol/L Chloride 111 H (98-107) mmol/L Carbon Dioxide 17 L (22-30) mmol/L Glucose 131 H (74-99) mg/dL AST 44 H (14-36) U/L ALT 40 H (4-34) U/L Total Protein 5.4 L (6.3-8.2) g/dL Albumin 2.1 L (3.5-5.0) g/dL HDL Cholesterol (40.00-60.00) mg/dL Microbiology - Last 24 Hours (Table) 03/22/23 09:10 Blood Culture Gram Stain - Preliminary Blood 03/21/23 16:25 Nasal Screen MRSA/MSSA - Final Nasal Swab 03/20/23 13:19 Blood Culture Gram Stain - Preliminary Blood Blood Culture - Preliminary Group D Enterococcus 03/20/23 13:19 Blood Culture Gram Stain - Preliminary Blood Blood Culture - Preliminary Group D Enterococcus
[2023-03-23] MEDS ORDERED: VANCOMYCIN TROUGH DUE 1 EACH MISC MISCELLANE ONE (11:00)
--- NOTE | 2023-03-23 11:45 | P.PN ---
Subjective Progress Note Date: 03/23/23 Progress note 03/21/2023 As a part of her confusion evaluation patient had an extensive workup. Her blood cultures came back positive for possible enterococcus bacteremia. She also has low-grade fevers. CT abdomen showed possible thrombus and right common femoral artery. She has intact pulses in bilateral lower extremity. She denies having any chest pain chest pressure. She is in sinus rhythm. She is hemodynamically stable. MRI brain showed possible embolic strokes. 03/22/2023 Hemodynamics stable, hemoglobin 8.4, creatinine is stable No new further neurological changes 2022 Hemodynamics stable. Hemoglobin is stable, no further neurological changes. Tolerating IV heparin without of his bleeding History of present illness: History of present illness: This is a 72-year-old female patient Dr. Mosley a past medical history of valvular heart disease status post aortic valve replacement using bioprosthetic valve, dyslipidemia. We have been asked to evaluate the patient for weakness and elevated troponins. History is obtained from the patient and her . Patient apparently passed out while in the bathroom found on the floor. For the past couple months she has had difficulty with ambulation due to weakness can hardly walk. Her states that she was incoherent and confused yesterday. Weakness has continued and she has had workup outpatient. She was seen by Dr. Mosley in the office on 03/03 and everything seems stable at that time. She has a scheduled MRI of the brain on Friday. Patient has no previous history of atrial fibrillation. Physical examination: Gen: This is a 72-year-old female. She is resting on ER stretcher. To be in no acute distress.] VS: reviewed HEENT: Head is atraumatic, normocephalic. Pupils equal, round. Sclerae is anicteric. NECK: Supple. No JVD. . LUNGS: Clear to auscultation. No wheezes or rhonchi. No intercostal retractions. HEART: Irregular rate and rhythm. Systolic murmur. ABDOMEN: Soft No tenderness. EXTREMITIES: No pedal edema. No calf tenderness. NEUROLOGICAL: Patient is awake, alert and oriented x3. Assessment: New-onset if atrial fibrillation, status post spontaneous cardioversion. Atrial fibrillation is new on this admission. This is likely due to increased and her cardiac pressures from aorta stenosis and aortic regurgitation. Embolic stroke, MRI showed scattered foci embolic stroke throughout the cerebrum. Gram-positive cocci septicemia with low-grade fevers Concerns of septic embolization. Other differential includes embolic stroke from atrial fibrillation. Mixed aortic valve disease with moderate aortic regurgitation and severe aortic stenosis. Pressure half time is around 400 msec. This puts her at moderate aortic regurgitation. VTI ratio is >0.3 and AT <100 msec. this puts her in the category of high flow state and patient processes mismatch. Status post bioprosthetic aortic valve, TAVR in 2017 in [facility] Dyslipidemia Plan: Continue low-grade IV heparin without bolus with repeatedly of around 40-50. Monitor for any changes in mental status. If there is any acute changes, obtain CT head to look for any hemorrhagic transformation of the stroke. Continue IV antibiotics, consult infectious disease Continue metoprolol to 25 mg twice a day Continue lisinopril 5 mg daily to reduce afterload Obtain MAUREEN on Friday with Dr García tomorrow. Keep NPO Objective - Vital Signs Vital signs: Vital Signs Temp 97.6 F 03/23/23 09:05 Pulse 67 03/23/23 11:35 Resp 18 03/23/23 11:35 BP 146/78 03/23/23 11:35 Pulse Ox 99 03/23/23 11:35 FiO2 Intake & Output 03/22/23 03/23/23 03/23/23 18:59 06:59 18:59 Intake Total 468.426 70.002 240 Output Total 200 Balance 268.426 70.002 240 Intake: Intake, IV Titration 162.426 70.002 Amount Heparin Sod,Pork in 0.45% 162.426 70.002 NaCl 25,000 unit In 0.45 % NaCl 1 250ml.bag @ 12 UNITS/KG/HR 6.151 mls/hr IV .Q24H [facility] Rx#: [id number] Oral 306 0 240 Output: Urine 200 Other: Voiding Method Diaper Diaper Diaper # Voids 2 1 # Bowel Movements 2 - Labs CBC & Chem 7: 03/23/23 07:50 03/23/23 07:50 Labs: Abnormal Lab Results - Last 24 Hours (Table) 03/22/23 03/22/23 03/23/23 Range/Units 15:28 22:26 07:50 WBC 13.1 H (3.8-10.6) k/uL RBC 2.91 L (3.80-5.40) m/uL Hgb 8.5 L (11.4-16.0) gm/dL Hct 27.3 L (34.0-46.0) % Neutrophils # 11.2 H (1.3-7.7) k/uL Lymphocytes # 0.8 L (1.0-4.8) k/uL APTT 37.1 H 57.5 H (22.0-30.0) sec Sodium (137-145) mmol/L Chloride (98-107) mmol/L Carbon Dioxide (22-30) mmol/L Glucose (74-99) mg/dL AST (14-36) U/L ALT (4-34) U/L Total Protein (6.3-8.2) g/dL Albumin (3.5-5.0) g/dL 03/23/23 03/23/23 Range/Units 07:50 07:50 WBC (3.8-10.6) k/uL RBC (3.80-5.40) m/uL Hgb (11.4-16.0) gm/dL Hct (34.0-46.0) % Neutrophils # (1.3-7.7) k/uL Lymphocytes # (1.0-4.8) k/uL APTT 52.7 H (22.0-30.0) sec Sodium 135 L (137-145) mmol/L Chloride 111 H (98-107) mmol/L Carbon Dioxide 17 L (22-30) mmol/L Glucose 131 H (74-99) mg/dL AST 44 H (14-36) U/L ALT 40 H (4-34) U/L Total Protein 5.4 L (6.3-8.2) g/dL Albumin 2.1 L (3.5-5.0) g/dL Microbiology - Last 24 Hours (Table) 03/22/23 09:10 Blood Culture Gram Stain - Preliminary Blood 03/21/23 16:25 Nasal Screen MRSA/MSSA - Final Nasal Swab 03/20/23 13:19 Blood Culture Gram Stain - Preliminary Blood Blood Culture - Preliminary Group D Enterococcus 03/20/23 13:19 Blood Culture Gram Stain - Preliminary Blood Blood Culture - Preliminary Group D Enterococcus
[2023-03-23] MEDS: VANCOMYCIN 750 MG in SODIUM CHLORIDE 0.9% 250 ML IVPB SCH (12:35)
--- NOTE | 2023-03-23 15:06 | P.PN ---
Subjective Progress Note Date: 03/23/23 The pt is a 72 y/o female who is seen in neurologic follow up on 2022, in collaboration with Amy Jacob, via teleneurology. The pt's chart has been reviewed. MRI of brain images have been reviewed. Today, the pt reports feeling "restless". She says she is feeling fine. She denies headache. According to a family member at the bedside, the pt still has some epidodes of slight confusion. She has reportedly been up to the bathroom with the assistance of a walker. Objective - Vital Signs Vital signs: Vital Signs Temp 97.6 F 03/23/23 09:05 Pulse 67 03/23/23 11:35 Resp 18 03/23/23 11:35 BP 146/78 03/23/23 11:35 Pulse Ox 99 03/23/23 11:35 FiO2 Intake & Output 03/22/23 03/23/23 03/23/23 18:59 06:59 18:59 Intake Total 468.426 70.002 240 Output Total 200 Balance 268.426 70.002 240 Intake: Intake, IV Titration 162.426 70.002 Amount Heparin Sod,Pork in 0.45% 162.426 70.002 NaCl 25,000 unit In 0.45 % NaCl 1 250ml.bag @ 12 UNITS/KG/HR 6.151 mls/hr IV .Q24H [facility] Rx#: [id number] Oral 306 0 240 Output: Urine 200 Other: Voiding Method Diaper Diaper Diaper External Catheter # Voids 2 1 # Bowel Movements 2 - Exam General: The pt is resting in the bed. She is in no acute distress. HEENT: Head is atraumtic, normocephalic. There is no scleral icterus. Mucous membranes moist Neurologic examination Mental status: The pt is awake, alert and oriented to name, DO, age, location, year and month. There is some perseveration. Speech is clear Cranial nerves: 2-12 grossly intact - Labs CBC & Chem 7: 03/23/23 07:50 03/23/23 07:50 Labs: Abnormal Lab Results - Last 24 Hours (Table) 03/22/23 03/22/23 03/23/23 Range/Units 15:28 22:26 07:50 WBC 13.1 H (3.8-10.6) k/uL RBC 2.91 L (3.80-5.40) m/uL Hgb 8.5 L (11.4-16.0) gm/dL Hct 27.3 L (34.0-46.0) % Neutrophils # 11.2 H (1.3-7.7) k/uL Lymphocytes # 0.8 L (1.0-4.8) k/uL APTT 37.1 H 57.5 H (22.0-30.0) sec Sodium (137-145) mmol/L Chloride (98-107) mmol/L Carbon Dioxide (22-30) mmol/L Glucose (74-99) mg/dL AST (14-36) U/L ALT (4-34) U/L Total Protein (6.3-8.2) g/dL Albumin (3.5-5.0) g/dL 03/23/23 03/23/23 Range/Units 07:50 07:50 WBC (3.8-10.6) k/uL RBC (3.80-5.40) m/uL Hgb (11.4-16.0) gm/dL Hct (34.0-46.0) % Neutrophils # (1.3-7.7) k/uL Lymphocytes # (1.0-4.8) k/uL APTT 52.7 H (22.0-30.0) sec Sodium 135 L (137-145) mmol/L Chloride 111 H (98-107) mmol/L Carbon Dioxide 17 L (22-30) mmol/L Glucose 131 H (74-99) mg/dL AST 44 H (14-36) U/L ALT 40 H (4-34) U/L Total Protein 5.4 L (6.3-8.2) g/dL Albumin 2.1 L (3.5-5.0) g/dL Microbiology - Last 24 Hours (Table) 03/20/23 13:19 Blood Culture Gram Stain - Final Blood Blood Culture - Preliminary Group D Enterococcus 03/22/23 09:10 Blood Culture Gram Stain - Preliminary Blood 03/21/23 16:25 Nasal Screen MRSA/MSSA - Final Nasal Swab 03/20/23 13:19 Blood Culture Gram Stain - Preliminary Blood Blood Culture - Preliminary Group D Enterococcus Assessment and Plan Assessment: Probable septic emboli to brain Syncopal episode seems due to underlying cardiac in origin especially with a new onset atrial fibrillation EEG is negative for seizure or discharges. Mentation improved Unsteady gait and she shuffling according to for last couple months unknown exact etiology New onset atrial fibrillation Elevated troponin Slightly elevated liver function test History of aortic valve replacement with by prostatic valve Dyslipidemia Plan: 1. Await MAUREEN scheduled for tomorrow 2. Physical and occupational therapy for strengthening 3. Would recommend DC of anticoagulation as this will not prevent septic emboli Time with Patient: Less than 30 (spent 25 minutes caring for pt, including revi ew of images, labs, chart documentation and creating this note)
--- NOTE | 2023-03-23 18:30 | P.PN ---
Subjective Progress Note Date: 03/23/23 Principal diagnosis: Enterococcus faecalis bacteremia Patient is a 72-year-old female with a past medical history significant for kidney cancer status post removal of the right kidney anxiety depression presenting to the hospital for evaluation of weakness and fall did have low-grade fever vomiting this infection disease consultation. On today's evaluation that is 03/23/2023, the patient denies any fever or chills , the patient is breathing comfortably on 2LNC supplemental oxygen, the patient denies chest pain or cough/sputum production, patient denies nausea/vomiting , abdominal pain and no diarrhea reported Patient is a white count of 13.1, creatinine 0.64, blood culture with Enterococcus faecalis, repeat Blood cultuees 03/22/23 also positive Objective - Vital Signs Vital signs: Vital Signs Temp 97.6 F 03/23/23 09:05 Pulse 78 03/23/23 16:00 Resp 15 03/23/23 16:00 BP 159/78 03/23/23 16:00 Pulse Ox 96 03/23/23 16:00 FiO2 Intake & Output 03/22/23 03/23/23 03/23/23 18:59 06:59 18:59 Intake Total 468.426 70.002 480 Output Total 200 800 Balance 268.426 70.002 -320 Intake: Intake, IV Titration 162.426 70.002 Amount Heparin Sod,Pork in 0.45% 162.426 70.002 NaCl 25,000 unit In 0.45 % NaCl 1 250ml.bag @ 12 UNITS/KG/HR 6.151 mls/hr IV .Q24H [facility] Rx#: [id number] Oral 306 0 480 Output: Urine 200 800 Other: Voiding Method Diaper Diaper Diaper External Catheter # Voids 2 1 # Bowel Movements 2 - Exam GENERAL DESCRIPTION: An elderly female lying in bed in no distress RESPIRATORY SYSTEM: Unlabored breathing , decreased breath sounds at bases HEART: S1 S2 regular rate and rhythm , ABDOMEN: Soft , no tenderness EXTREMITIES: No edema feet - Labs CBC & Chem 7: 03/23/23 07:50 03/23/23 07:50 Labs: Abnormal Lab Results - Last 24 Hours (Table) 03/22/23 03/23/23 03/23/23 Range/Units 22:26 07:50 07:50 WBC 13.1 H (3.8-10.6) k/uL RBC 2.91 L (3.80-5.40) m/uL Hgb 8.5 L (11.4-16.0) gm/dL Hct 27.3 L (34.0-46.0) % Neutrophils # 11.2 H (1.3-7.7) k/uL Lymphocytes # 0.8 L (1.0-4.8) k/uL APTT 57.5 H (22.0-30.0) sec Sodium 135 L (137-145) mmol/L Chloride 111 H (98-107) mmol/L Carbon Dioxide 17 L (22-30) mmol/L Glucose 131 H (74-99) mg/dL AST 44 H (14-36) U/L ALT 40 H (4-34) U/L Total Protein 5.4 L (6.3-8.2) g/dL Albumin 2.1 L (3.5-5.0) g/dL 03/23/23 Range/Units 07:50 WBC (3.8-10.6) k/uL RBC (3.80-5.40) m/uL Hgb (11.4-16.0) gm/dL Hct (34.0-46.0) % Neutrophils # (1.3-7.7) k/uL Lymphocytes # (1.0-4.8) k/uL APTT 52.7 H (22.0-30.0) sec Sodium (137-145) mmol/L Chloride (98-107) mmol/L Carbon Dioxide (22-30) mmol/L Glucose (74-99) mg/dL AST (14-36) U/L ALT (4-34) U/L Total Protein (6.3-8.2) g/dL Albumin (3.5-5.0) g/dL Microbiology - Last 24 Hours (Table) 03/20/23 13:19 Blood Culture Gram Stain - Final Blood Blood Culture - Final Enterococcus faecalis 03/20/23 13:19 Blood Culture Gram Stain - Final Blood Blood Culture - Final Enterococcus faecalis 03/22/23 09:10 Blood Culture Gram Stain - Preliminary Blood 03/21/23 16:25 Nasal Screen MRSA/MSSA - Final Nasal Swab Assessment and Plan (1) Bacteremia Current Visit: Yes Status: Acute Code(s): R78.81 - BACTEREMIA SNOMED Code(s): 2286742 (2) Allergy to multiple antibiotics Current Visit: Yes Status: Acute Code(s): Z88.1 - ALLERGY STATUS TO OTHER ANTIBIOTIC AGENTS SNOMED Code(s): 849069514 Plan: 1patient with a low-grade fever in this patient presented to hospital with a fall and weakness and apparently has becoming more forgetful over the last few weeks some confusion has been noticed patient initial work-up including a UA chest x-ray has been negative no evidence of any cellulitis or joint swelling no neck rigidity was noticed, patient workup did include blood cultures came back positive for Enterococcus faecalis and the patient also have significant abnormality on the CT abdominal pelvis with concern for acute thrombophlebitis involving the left INFORMATION [employer]ITY [employer]CHITECT SFA and PFA for its risk of surgery has been consulted 2-source of bacteremia is likely endocarditis as the patient did have a negative UA CT abdominal pelvis did not show any acute abnormality to the bowel MAUREEN scheduled for tomorrow 3-Pt to continue with vancomycin pharmacy to dose for watching her kidney function closely , blood culture will be repeated daily to document clearance Dictation was produced using [employer] dictation software. please excuse any grammatical, word or spelling errors. Time with Patient: Less than 30
[2023-03-23] MEDS: ATORVASTATIN 40 MG TAB PO SCH (21:11)
[2023-03-23] MEDS: MELATONIN 3 MG TABLET PO SCH (21:11)
[2023-03-23] MEDS ORDERED: ALPRAZolam 0.25 MG TAB PO STA (22:47)
[2023-03-23] MEDS: VANCOMYCIN 1,000 MG in SODIUM CHLORIDE 0.9% 250 ML IVPB SCH (23:20)
[2023-03-24 04:55] LABS: Herpes simplex I and/or II IgM 0.82 INDEX (<=0.90); Herpes simplex IgG I Ab 21.8 (< or = 0.90); Herpes simplex IgG II Ab 0.13 (< or = 0.90)
[2023-03-24 08:46] LABS: Basophils % (A) 0 %; Eosinophils # (A) 0.2 k/uL (0-0.7); Eosinophils % (A) 3 %; HCT 28.6 % (34.0-46.0); HGB 9.2 gm/dL (11.4-16.0); Hypochromasia Slight; Lymphocytes % (A) 10 %; MCH 29.5 pg (25.0-35.0); MCHC 32.1 g/dL (31.0-37.0); Mean Platelet Volume 6.9; Monocytes # (A) 0.5 k/uL (0-1.0); Monocytes % (A) 5 %; Neutrophils # (A) 7.7 k/uL (1.3-7.7); Neutrophils % (A) 79 %; Platelet Count 474 k/uL (150-450); RBC 3.11 m/uL (3.80-5.40); RDW 14.8 % (11.5-15.5); WBC 9.8 k/uL (3.8-10.6)
[2023-03-24] MEDS: LOSARTAN 25 MG TAB PO SCH (08:56)
[2023-03-24] MEDS: PANTOPRAZOLE 40 MG TABLET PO SCH (08:56)
[2023-03-24] MEDS: METOPROLOL TARTRATE 25 MG TAB PO SCH (08:56)
[2023-03-24] MEDS: VENLAFAXINE HCL ER 150 MG CAP PO SCH (08:57)
[2023-03-24] MEDS: HEPARIN SOD,PORK IN 0.45% NACL 25,000 UNIT in 0.45% NACL 1 250ML.BAG IV SCH (09:04)
[2023-03-24 09:09] LABS: ALT 37 U/L (4-34); AST 40 U/L (14-36); African American GFR (CKD) >90 (>60 ml/min/1.73 sqM); Albumin 2.3 g/dL (3.5-5.0); Alkaline Phosphatase 85 U/L (38-126); Anion Gap 6 mmol/L; Blood Urea Nitrogen 9 mg/dL (7-17); Calcium 8.5 mg/dL (8.4-10.2); Carbon Dioxide 25 mmol/L (22-30); Chloride 104 mmol/L (98-107); Glucose 102 mg/dL (74-99); Non-African American GFR(CKD) 88 (>60 ml/min/1.73 sqM); Potassium 3.2 mmol/L (3.5-5.1); Sodium 135 mmol/L (137-145); Total Bilirubin 0.6 mg/dL (0.2-1.3); Total Protein 5.8 g/dL (6.3-8.2)
[2023-03-24] MEDS: BENZOCAINE SPRAY 1 CAN TOPICAL ONE ×2 (09:45→09:51)
[2023-03-24] MEDS ORDERED: MIDAZOLAM 2 MG/2 ML VIAL IVP ONE (09:51)
[2023-03-24] MEDS ORDERED: fentaNYL (PF) 50 MCG/1 ML VIAL IVP ONE (09:51)
--- NOTE | 2023-03-24 10:19 | P.PCN ---
Date of Procedure: 03/24/23 Description of Procedure: Indication: Evaluation of endocarditis Procedure Description: After explaining the procedure to the patient, it's risk and complications, blood pressure, heart rate and O2 saturation were monitored. The throat was sprayed with Cetacaine. Patient received 2 mg intravenous Versed, 50 mcg intravenous fentanyl. The probe was introduced into the esophagus without difficulty. Images were obtained. Following that, the probe was removed. There was no immediate complication. Findings: Left atrial size is moderately dilated, left atrial appendage is normal. The left ventricle size and systolic function are normal. Aortic valve is a bioprosthetic valve calcified and thickened, there is evidence consistent with an abscess in the periaortic area with flow and cavitated appearance. Tricuspid valve appears to be normal, descending thoracic aorta appears to be normal. No pericardial effusion was noted. Contrast bubble study revealed no shunting across the intra-atrial septum with Valsalva maneuver. Doppler: Pulse wave and color Doppler were obtained, and revealed mild to moderate mitral regurgitation with mild tricuspid regurgitation and cvae-ki-ujkyqdgu aortic regurgitation. The peak gradient across the aortic valve is 52 mmHg with a mean of 32 minutes of mercury. There was no shunting across the intra-atrial septum. Conclusion: 1. Normal ventricle size and systolic function 2. Bioprosthetic aortic valve with mnmg-ix-ovijopmu aortic regurgitation and a mean gradient of 30 tumid mercury. There was evidence of paravalvular abscess with flow and cavitation. 3. Cxap-fk-wpnkifrf mitral regurgitation 4. And mild tricuspid regurgitation 5. No shunting across the intra-atrial septum
--- NOTE | 2023-03-24 10:24 | P.PN ---
Subjective Progress Note Date: 03/24/23 PROGRESS NOTE The patient is a 72-year-old female, followed by Dr. Mosley with a known history of bioprosthetic aortic valve replacement who presented with change in mental status and evidence of an abnormal brain CAT scan and MRI and evidence of sepsis. She's feeling well this morning, she denies any chest discomfort, dizziness or palpitations and she denies any nausea. She underwent a MAUREEN that showed evidence of periaortic abscess with cavitations and flow with thickening of the aortic bioprosthesis. Her left ventricle systolic function was normal. Her blood cultures are positive for enterococcus faecalis Medications: Lipitor 40 mg daily, IV heparin, losartan 25 mg daily, Toprol 25 mg twice a day, vancomycin PHYSICAL EXAMINATION: Blood pressure 158/80 heart rate 89 LUNGS: Clear to auscultation HEART: Irregular rate and rhythm, S1, S2. No S3. Systolic ejection and early diastolic murmur at the base ABDOMEN: Soft, nontender, no organomegaly EXTREMETIES: No edema LAB: Hemoglobin 9.2, WBC 9.8, potassium 3.2 IMPRESSION: 1. Endocarditis with periaortic abscess 2. Status post bioprosthetic aortic valve replacement 3. Evidence of embolic abnormalities on the MRI, probably infectious em bolization 4. Atrial fibrillation PLAN: 1. Continue antibiotics per infectious disease 2. Obtain input of cardiovascular surgery, patient will require surgery, risk elevated, may benefit from transfer to tertiary care institution 3. Add low dose beta zuleyma 4. Follow renal functions and CBC 5. Depending on her progress further recommendations will be made. Objective - Vital Signs Vital signs: Vital Signs Temp 97.6 F 03/24/23 08:40 Pulse 89 03/24/23 08:40 Resp 22 03/24/23 08:40 BP 158/82 03/24/23 08:40 Pulse Ox 97 03/24/23 08:45 FiO2 Intake & Output 03/23/23 03/24/23 03/24/23 18:59 06:59 18:59 Intake Total 480 250 Output Total 800 2000 Balance -320 -2000 250 Intake: Intake, IV Titration 250 Amount Heparin Sod,Pork in 0.45% 250 NaCl 25,000 unit In 0.45 % NaCl 1 250ml.bag @ 12 UNITS/KG/HR 6.151 mls/hr IV .[facility]H [facility] Rx#: [id number] Oral 480 Output: Urine 800 2000 Other: Voiding Method Diaper External Catheter External Catheter # Voids 1 - Labs CBC & Chem 7: 03/24/23 08:29 03/24/23 08:29 Labs: Abnormal Lab Results - Last 24 Hours (Table) 03/21/23 03/24/23 03/24/23 Range/Units 10:06 08:29 08:29 RBC 3.11 L (3.80-5.40) m/uL Hgb 9.2 L (11.4-16.0) gm/dL Hct 28.6 L (34.0-46.0) % Plt Count 474 H (150-450) k/uL APTT (22.0-30.0) sec Sodium 135 L (137-145) mmol/L Potassium 3.2 L (3.5-5.1) mmol/L Glucose 102 H (74-99) mg/dL AST 40 H (14-36) U/L ALT 37 H (4-34) U/L Total Protein 5.8 L (6.3-8.2) g/dL Albumin 2.3 L (3.5-5.0) g/dL HSV I IgG Ab 21.80 H (< or = 0.90) 03/24/23 Range/Units 08:29 RBC (3.80-5.40) m/uL Hgb (11.4-16.0) gm/dL Hct (34.0-46.0) % Plt Count (150-450) k/uL APTT 48.9 H (22.0-30.0) sec Sodium (137-145) mmol/L Potassium (3.5-5.1) mmol/L Glucose (74-99) mg/dL AST (14-36) U/L ALT (4-34) U/L Total Protein (6.3-8.2) g/dL Albumin (3.5-5.0) g/dL HSV I IgG Ab (< or = 0.90) Microbiology - Last 24 Hours (Table) 03/20/23 13:19 Blood Culture Gram Stain - Final Blood Blood Culture - Final Enterococcus faecalis 03/20/23 13:19 Blood Culture Gram Stain - Final Blood Blood Culture - Final Enterococcus faecalis 03/22/23 09:10 Blood Culture Gram Stain - Preliminary Blood
--- NOTE | 2023-03-24 10:58 | P.PN ---
Subjective Progress Note Date: 03/24/23 Patient seen and examined today as a follow-up. Family is at the bedside. No acute changes through the night. No complaints at this time. She is currently on a heparin drip per recommendations from cardiology. Patient is getting ready to go down for MAUREEN today. She has been seen by cardiothoracic surgery who are deferring TAVR workup at this time. Objective - Vital Signs Vital signs: Vital Signs Temp 97.6 F 03/24/23 08:40 Pulse 89 03/24/23 08:40 Resp 22 03/24/23 08:40 BP 158/82 03/24/23 08:40 Pulse Ox 97 03/24/23 08:45 FiO2 Intake & Output 03/23/23 03/24/23 03/24/23 18:59 06:59 18:59 Intake Total 480 250 Output Total 800 2000 Balance -320 -2000 250 Intake: Intake, IV Titration 250 Amount Heparin Sod,Pork in 0.45% 250 NaCl 25,000 unit In 0.45 % NaCl 1 250ml.bag @ 12 UNITS/KG/HR 6.151 mls/hr IV .Q24H [facility] Rx#: [id number] Oral 480 Output: Urine 800 2000 Other: Voiding Method Diaper External Catheter External Catheter # Voids 1 - Exam General appearance: The patient is alert, oriented, appears in no acute distress. HET: Head is normocephalic and atraumatic. Neck: Supple. Abdomen: Soft, nondistended. Extremities: Normal skin color and turgor. Bilateral lower extremity without edema. Good capillary refill. Neurological: No focal deficits. S - Labs CBC & Chem 7: 03/24/23 08:29 03/24/23 08:29 Labs: Abnormal Lab Results - Last 24 Hours (Table) 03/21/23 03/24/23 03/24/23 Range/Units 10:06 08:29 08:29 RBC 3.11 L (3.80-5.40) m/uL Hgb 9.2 L (11.4-16.0) gm/dL Hct 28.6 L (34.0-46.0) % Plt Count 474 H (150-450) k/uL APTT (22.0-30.0) sec Sodium 135 L (137-145) mmol/L Potassium 3.2 L (3.5-5.1) mmol/L Glucose 102 H (74-99) mg/dL AST 40 H (14-36) U/L ALT 37 H (4-34) U/L Total Protein 5.8 L (6.3-8.2) g/dL Albumin 2.3 L (3.5-5.0) g/dL HSV I IgG Ab 21.80 H (< or = 0.90) 03/24/23 Range/Units 08:29 RBC (3.80-5.40) m/uL Hgb (11.4-16.0) gm/dL Hct (34.0-46.0) % Plt Count (150-450) k/uL APTT 48.9 H (22.0-30.0) sec Sodium (137-145) mmol/L Potassium (3.5-5.1) mmol/L Glucose (74-99) mg/dL AST (14-36) U/L ALT (4-34) U/L Total Protein (6.3-8.2) g/dL Albumin (3.5-5.0) g/dL HSV I IgG Ab (< or = 0.90) Microbiology - Last 24 Hours (Table) 03/20/23 13:19 Blood Culture Gram Stain - Final Blood Blood Culture - Final Enterococcus faecalis 03/20/23 13:19 Blood Culture Gram Stain - Final Blood Blood Culture - Final Enterococcus faecalis 03/22/23 09:10 Blood Culture Gram Stain - Preliminary Blood Assessment and Plan Assessment: 1. Arterial thrombosis left MUNITIONS HANDLER extending into the proximal SFA and PFA 2. Generalized weakness 3. Altered mental status changes 4. Positive blood cultures 5. New onset atrial fibrillation on Eliquis 5mg BID 6. History of aortic valve replacement 7. History of right nephrectomy Plan: 1. Continue anticoagulation 2. Continue IV antibiotics 3. Await MAUREEN findings, cardiology recommendations 4. Consider possible percutaneous thrombectomy versus open thrombectomy if patient chooses surgical intervention Thank you for this consultation, we will continue to follow. The impression and plan of care has been dictated as directed. I performed a history and examination of this patient, discussed the same with the dictator. I agree with the dictator's note ,documented as a scribe. Any additional findings or plans will be noted.
[2023-03-24] MEDS: ASCORBIC ACID 500 MG TAB PO SCH (12:44)
[2023-03-24] MEDS: CHOLECALCIFEROL 25 MCG (1000 IU) TABLET PO SCH (12:45)
[2023-03-24] MEDS: MULTIVITAMINS, THERA 1 EACH TAB PO SCH (12:45)
[2023-03-24] MEDS: VANCOMYCIN 1,000 MG in SODIUM CHLORIDE 0.9% 250 ML IVPB SCH ×2 (12:46→23:49)
[2023-03-24] MEDS: VITAMIN E (DL,TOCOPHERYL ACET) 400 UNIT (180 MG) CAP PO SCH (12:46)
[2023-03-24 13:30] VITALS: BMI 21.3
[2023-03-24 16:02] VITALS: RESP 18
--- NOTE | 2023-03-24 18:03 | P.PN ---
Subjective Progress Note Date: 03/24/23 Patient was seen for a follow-up. Patient is a 72-year-old female with episodes of confusion and low-grade fever. MRI of the brain revealed scattered microemboli. It was recommended to hold anticoagulation because of risk of bleed. Cardiothoracic surgery is also on board. However patient has developed atrial fibrillation as well. Patient is on anticoagulation with heparin IV. Also on vancomycin. ID on board. Patient had MAUREEN, which confirmed with serial endocarditis. At present patient denies any headache,, no dizziness, shortness of breath, chest pain, nausea vomiting, any numbness tingling focal weakness or visual disturbance. Objective - Vital Signs Vital signs: Vital Signs Temp 98.8 F 03/24/23 15:40 Pulse 89 03/24/23 08:40 Resp 18 03/24/23 15:40 BP 146/76 03/24/23 15:40 Pulse Ox 94 L 03/24/23 15:40 FiO2 Intake & Output 03/23/23 03/24/23 03/24/23 18:59 06:59 18:59 Intake Total 480 600 Output Total 800 2000 Balance -320 -2000 600 Weight 51.256 kg Intake: Intake, IV Titration 250 Amount Heparin Sod,Pork in 0.45% 250 NaCl 25,000 unit In 0.45 % NaCl 1 250ml.bag @ 12 UNITS/KG/HR 6.151 mls/hr IV .Q24H [facility] Rx#: [id number] Oral 480 350 Output: Urine 800 2000 Other: Voiding Method Diaper External Catheter External Catheter External Catheter # Voids 1 - Exam On examination patient is an elderly female, appears slightly younger than her stated age. She appears delirious, shaky, slightly tremulous. She is sitting on the couch by the window. Speech and language functions are normal. On cranial nerve examination, pupils are equal, round and reacting, visual gaytan are full, face is symmetric and tongue protrudes to the midline. On muscle strength testing there is no pronator drift and the strength is normal in arms and legs. Sensory to touch is equal with no neglect. No ataxia for tewyiz-bj-znrq testing although patient is slightly tremulous. - Labs CBC & Chem 7: 03/24/23 08:29 03/24/23 08:29 Labs: Abnormal Lab Results - Last 24 Hours (Table) 10/03/24/23 03/24/23 Range/Units 10:06 08:29 08:29 RBC 3.11 L (3.80-5.40) m/uL Hgb 9.2 L (11.4-16.0) gm/dL Hct 28.6 L (34.0-46.0) % Plt Count 474 H (150-450) k/uL APTT (22.0-30.0) sec Sodium 135 L (137-145) mmol/L Potassium 3.2 L (3.5-5.1) mmol/L Glucose 102 H (74-99) mg/dL AST 40 H (14-36) U/L ALT 37 H (4-34) U/L Total Protein 5.8 L (6.3-8.2) g/dL Albumin 2.3 L (3.5-5.0) g/dL HSV I IgG Ab 21.80 H (< or = 0.90) 03/24/23 Range/Units 08:29 RBC (3.80-5.40) m/uL Hgb (11.4-16.0) gm/dL Hct (34.0-46.0) % Plt Count (150-450) k/uL APTT 48.9 H (22.0-30.0) sec Sodium (137-145) mmol/L Potassium (3.5-5.1) mmol/L Glucose (74-99) mg/dL AST (14-36) U/L ALT (4-34) U/L Total Protein (6.3-8.2) g/dL Albumin (3.5-5.0) g/dL HSV I IgG Ab (< or = 0.90) Microbiology - Last 24 Hours (Table) 03/22/23 09:10 Blood Culture Gram Stain - Preliminary Blood Blood Culture - Preliminary Group D Enterococcus Assessment and Plan Assessment: Probable septic emboli to brain Bacterial endocarditis, with positive blood cultures with Enterococcus faecalis. MAUREEN confirmed Bioprosthetic aortic valve with [id number] aortic regurgitation and a mean gradient of 30 mm Hg. There was evidence of paravalvular abscess with flow and cavitation. Syncopal episode seems due to underlying cardiac in origin especially with a new onset atrial fibrillation Unsteady gait and she shuffling according to for last couple months unknown exact etiology New onset atrial fibrillation Elevated troponin Slightly elevated liver function test History of aortic valve replacement with bioprostatic valve Dyslipidemia Plan: MAUREEN performed today revealed: 1. Normal ventricle size and systolic function 2. Bioprosthetic aortic valve with fumk-tu-wgnvqskb aortic regurgitation and a mean gradient of 30 tumid mercury. There was evidence of paravalvular abscess with flow and cavitation. 3. Hwgx-dv-ghltsown mitral regurgitation 4. And mild tricuspid regurgitation 5. No shunting across the intra-atrial septum * Physical and occupational therapy for strengthening * Anticoagulation not indicated for septic emboli, but patient does have atrial fibrillation, which may need anticoagulation, if recommended by cardiology. Patient currently on heparin, PTT therapeutic 48.9. * EEG showed no epileptiform activity. * Patient currently on vancomycin. * Patient's neurological examination is stable at this time. Other management as per ID, cardiology and IM. Neurology will follow peripherally.
[2023-03-24] MEDS: ATORVASTATIN 40 MG TAB PO SCH (20:59)
[2023-03-24] MEDS: MELATONIN 3 MG TABLET PO SCH (20:59)
[2023-03-24] MEDS ORDERED: METOPROLOL TARTRATE 50 MG TAB PO SCH (21:00)
[2023-03-24 21:09] VITALS: TEMP 98.4
[2023-03-25 00:48] VITALS: BP 135/76; PULSE 99
--- NOTE | 2023-03-25 08:52 | P.PN ---
Progress Note - Text Progress Note Date: 03/24/23 Case was discussed with Dr. García. Patient has large root abscess and needs redo aortic valve surgery. This will be extremely high risk due to her overall status including deep vein thrombosis and septic emboli to the brain. Most appropriate to move her turned tertiary care facility. Dr. García is in agreement with this assessment.
[2023-03-25] MEDS ORDERED: VANCOMYCIN TROUGH DUE 1 EACH MISC MISCELLANE ONE (11:00)
--- NOTE | 2023-03-25 11:57 | P.PN ---
Subjective Progress Note Date: 03/24/23 Principal diagnosis: Enterococcus faecalis bacteremia Patient is a 72-year-old female with a past medical history significant for kidney cancer status post removal of the right kidney anxiety depression presenting to the hospital for evaluation of weakness and fall did have low-grade fever vomiting this infection disease consultation. On today's evaluation that is 03/24/2023, the patient remains to be afebrile, the patient is breathing comfortably on room air without the need for supplemental oxygen and no shortness of breath, the patient denies having any chest pain or cough, patient denies nausea/vomiting /diarrhea and no abdominal pain, Patient is a white count normalized to 9.8, creatinine 0.67, blood culture with Enterococcus faecalis, repeat Blood cultuees 03/22/23 also positive Objective - Vital Signs Vital signs: Vital Signs Temp 98.4 F 03/24/23 20:54 Pulse 71 03/24/23 20:54 Resp 18 03/24/23 20:54 BP 134/80 03/24/23 20:54 Pulse Ox 93 L 03/24/23 20:54 FiO2 Intake & Output 03/24/23 03/24/23 03/25/23 06:59 18:59 06:59 Intake Total 600 Output Total 2000 Balance -1999 600 Weight 51.256 kg Intake: Intake, IV Titration 250 Amount Heparin Sod,Pork in 0.45% 250 NaCl 25,000 unit In 0.45 % NaCl 1 250ml.bag @ 12 UNITS/KG/HR 6.151 mls/hr IV .Q24H [facility] Rx#: [id number] Oral 350 Output: Urine 2000 Other: Voiding Method External Catheter External Catheter External Catheter # Voids 1 1 - Exam GENERAL DESCRIPTION: An elderly female lying in bed in no distress RESPIRATORY SYSTEM: Unlabored breathing , decreased breath sounds at bases HEART: S1 S2 regular rate and rhythm , ABDOMEN: Soft , no tenderness EXTREMITIES: No edema feet - Labs CBC & Chem 7: 03/24/23 08:29 03/24/23 08:29 Labs: Abnormal Lab Results - Last 24 Hours (Table) 03/21/23 03/24/23 03/24/23 Range/Units 10:06 08:29 08:29 RBC 3.11 L (3.80-5.40) m/uL Hgb 9.2 L (11.4-16.0) gm/dL Hct 28.6 L (34.0-46.0) % Plt Count 474 H (150-450) k/uL APTT (22.0-30.0) sec Sodium 135 L (137-145) mmol/L Potassium 3.2 L (3.5-5.1) mmol/L Glucose 102 H (74-99) mg/dL AST 40 H (14-36) U/L ALT 37 H (4-34) U/L Total Protein 5.8 L (6.3-8.2) g/dL Albumin 2.3 L (3.5-5.0) g/dL HSV I IgG Ab 21.80 H (< or = 0.90) 03/24/23 Range/Units 08:29 RBC (3.80-5.40) m/uL Hgb (11.4-16.0) gm/dL Hct (34.0-46.0) % Plt Count (150-450) k/uL APTT 48.9 H (22.0-30.0) sec Sodium (137-145) mmol/L Potassium (3.5-5.1) mmol/L Glucose (74-99) mg/dL AST (14-36) U/L ALT (4-34) U/L Total Protein (6.3-8.2) g/dL Albumin (3.5-5.0) g/dL HSV I IgG Ab (< or = 0.90) Microbiology - Last 24 Hours (Table) 03/22/23 09:10 Blood Culture Gram Stain - Preliminary Blood Blood Culture - Preliminary Group D Enterococcus Assessment and Plan (1) Bacteremia Status: Acute Code(s): R78.81 - BACTEREMIA SNOMED Code(s): 9917444 (2) Allergy to multiple antibiotics Status: Acute Code(s): Z88.1 - ALLERGY STATUS TO OTHER ANTIBIOTIC AGENTS SNOMED Code(s): 196051327 Plan: 1patient with a low-grade fever in this patient presented to hospital with a fall and weakness and apparently has becoming more forgetful over the last few weeks some confusion has been noticed patient initial work-up including a UA chest x-ray has been negative no evidence of any cellulitis or joint swelling no neck rigidity was noticed, patient workup did include blood cultures came back positive for Enterococcus faecalis and the patient also have significant abnormality on the CT abdominal pelvis with concern for acute thrombophlebitis involving the left [employer] SFA and PFA for its risk of surgery has been following the patient 2-source of bacteremia is likely endocarditis as the patient did have a negative UA CT abdominal pelvis did not show any acute abnormality, patient did have MAUREEN completed this morning with evidence of aortic paravalvular abscess 3-patient will continue with vancomycin pharmacy to dose for watching her kidney function closely , likely transfer to tertiary care for paravalvular abscess Multiple family members at the bedside questions were answered Dictation was produced using [employer] dictation software. please excuse any grammatical, word or spelling errors. Time with Patient: Less than 30
== END 2023-03-25 01:08 | disposition short-term general hospital (02) | DRG 314 ==
LOC: EC 17:58 → 3SCARD 21:39
PROVIDERS: ADMIT Internal Medicine; ATTEND Internal Medicine
PROC: B24BZZ4 Ultrasonography of Heart with Aorta, Transesophageal (ICD-10-PCS; principal; 2023-03-24 14:25)
DX: T82.6XXA Infection and inflammatory reaction due to cardiac valve prosthesis, initial encounter (principal); A41.89 Other specified sepsis; G93.41 Metabolic encephalopathy; I33.0 Acute and subacute infective endocarditis; I63.40 Cerebral infarction due to embolism of unspecified cerebral artery; F33.9 Major depressive disorder, recurrent, unspecified; I74.3 Embolism and thrombosis of arteries of the lower extremities; I76 Septic arterial embolism; T82.857A Stenosis of other cardiac prosthetic devices, implants and grafts, initial encounter; B95.2 Enterococcus as the cause of diseases classified elsewhere; D64.9 Anemia, unspecified; E78.5 Hyperlipidemia, unspecified; F41.9 Anxiety disorder, unspecified; I34.0 Nonrheumatic mitral (valve) insufficiency; I35.0 Nonrheumatic aortic (valve) stenosis; I44.0 Atrioventricular block, first degree; I48.0 Paroxysmal atrial fibrillation; J45.20 Mild intermittent asthma, uncomplicated; K21.9 Gastro-esophageal reflux disease without esophagitis; M48.00 Spinal stenosis, site unspecified; M79.7 Fibromyalgia; R29.6 Repeated falls; Z79.01 Long term (current) use of anticoagulants; Z79.899 Other long term (current) drug therapy; Z80.3 Family history of malignant neoplasm of breast; Z80.41 Family history of malignant neoplasm of ovary; Z82.49 Family history of ischemic heart disease and other diseases of the circulatory system; Z82.5 Family history of asthma and other chronic lower respiratory diseases; Z85.528 Personal history of other malignant neoplasm of kidney; Z90.5 Acquired absence of kidney; Z90.49 Acquired absence of other specified parts of digestive tract; Z88.0 Allergy status to penicillin; Z87.440 Personal history of urinary (tract) infections
CPT/HCPCS: 36415; 70450; 70551; 71045; 72125; 74177; 80053; 80061; 80074; 80202; 81001; 82140; 82565; 82607; 82728; 82746; 83036; 83540; 83550; 83735; 84145; 84443; 84484; 85025; 85045; 85610; 85730; 86140; 86694; 86695; 86696; 86780; 87040; 87070; 87077; 87186; 93005; 93306; 93312; 93320; 93325; 93880; 94640; 94664; 94760; 95816; 96365; 96366; 99285